=== PATIENT | male | born 1945 | race African-American/Black ===

== ENCOUNTER 2018-04-08 12:26 | Emergency (ER) | payer MEDICARE, SELFPAY ==
[2018-04-08] VITALS (7 sets, daily range): BP systolic 119–143; BP diastolic 70–79; PULSE 53–72; RESP 13–20; TEMP 36.6–36.8; O2SAT 91–96; BMI 27.6
--- NOTE | 2018-04-08 12:58 | EKG12_ITS ---
Test Reason : SOB Blood Pressure : / mmHG Vent. Rate : 054 BPM Atrial Rate : 054 BPM P-R Int : 142 ms QRS Dur : 090 ms QT Int : 474 ms P-R-T Axes : -05 -36 191 degrees QTc Int : 449 ms Sinus bradycardia Left axis deviation Minimal voltage criteria for LVH, may be normal variant Inferior infarct , age undetermined Abnormal ECG Confirmed by JERSON SWARTZ, GERMAN ([id number]), fashion editor LOLLY KAYE ([id number]) on 04/13/2018 4:53:46 PM Referred By: SHERIE Confirmed By:GERMAN ARTHUR MD
[2018-04-08] MEDS: Ipratropium/Albuterol Sulfate 3 ML AMPUL.NEB INHALATION (13:11)
[2018-04-08] MEDS: MethylPREDNISolone 125 MG/2 ML Vial IV (13:37)
--- NOTE | 2018-04-08 13:50 | RAD_ITS ---
STUDY: X-RAY CHEST REASON FOR EXAM: Male, 73 years old. Cough. TECHNIQUE: PA and lateral views of the chest. COMPARISON: None. FINDINGS: EKG electrodes are seen. Pleural-parenchymal changes are seen at the left lung base. This may represent either a small pleural effusion with underlying infiltration or scarring. No prior study is available for comparison. Mild increased markings at the right lung base suggestive of scarring. A left-sided dual-chamber pacemaker is seen. Normal mediastinum and cari. Normal visualized pulmonary arteries. There is atherosclerotic calcification of the aortic arch with tortuosity. There are diffuse degenerative changes of the visualized thoracic spine. Normal visualized ribs, clavicles, and shoulders. A stent is seen in the abdominal aorta. RAD/Chest PA and Lateral IMPRESSION: Pleural parenchymal changes at the left lung base as described. This may represent a small pleural effusion with underlying infiltration. No prior studies available for comparison. This may also represent chronic changes. Clinical correlation is recommended. Electronically Signed: Shawn Roman MD at 14:18 EST Tel [phone], Service support ,
[2018-04-08 14:04] LABS: BUN 32 mg/dL (7-18); Creatinine, Serum 2.42 mg/dL (0.70-1.30); Estimated Creatinine Clearance 23.44 ml/min; Glucose 119 mg/dL (74-106)
[2018-04-08 14:05] LABS: Absolute Lymphocyte Count 1.29 X10^3/ul (0.83-4.51); Absolute Neutrophil Count 7.1 X10^3/uL (2.0-7.7); Anion Gap 7 (5-15); BUN/Creat Ratio 13.2 RATIO (10-20); Basophil# 0.04 X10^3/uL; Basophil% 0.4 % (0-1); Calcium,Total 8.7 mg/dL (8.5-10.1); Chloride 110 mmol/L (98-107); EST Glomerular Filtration Rate 28 mL/min (>60); Eosinophil# 1.37 X10^3/uL; Eosinophils% 12.7 % (0-5); Est Glom Filt Rate - Afr Amer 34 mL/min (>60); Hematocrit 38.6 % (40-54); Hemoglobin 12.2 g/dl (13.0-16.5); Lymphocyte # 1.29 X10^3/ul (4.0); Lymphocyte % 11.9 % (19-41); Mean Corp Hgb Conc 31.6 g/gl (32-36); Mean Corpuscular Hgb 28.6 pg (27.0-32.0); Mean Corpuscular Volume 90.6 fL (80-94); Mean Platelet Vol. 9.8 fl (6.2-12.0); Monocyte# 0.97 X10^3/uL; Neutrophil # 7.12 X10^3/uL (2.7-7.7); Neutrophil % 65.6 % (47-70); POSITIVE COUNT NO; POSITIVE DIFFERENTIAL NO; POSITIVE MORPHOLOGY NO; Platelet Count 225 K/mm3 (150-450); RBC Distribution Width CV 17.6 % (11.6-14.6); RBC Distribution Width SD 57.2 fl (35.1-43.9); Red Blood Count 4.26 M/mm3 (4.6-6.2); Sodium Level 145 mmol/L (136-145); White Blood Count 10.8 K/mm3 (4.4-11.0)
[2018-04-08 14:33] LABS: BNP,B-Type NATRIURETIC PEPTIDE 372.2 pg/mL (0-100)
--- NOTE | 2018-04-08 14:56 | ED.DCSUM_ITS ---
- ER Visit Summary Date of Service: 04/08/18 Chief Complaint: Shortness of breath History of Present Illness: The patient is a [address] Rodriguez and Dr. Perrin. He is a poor informant. He reports his shortness of breath began March 30. He states that he was seen at [facility] and was admitted and discharged April 02. States that that time he was thought to have CHF and they had him on Lasix in the hospital. They did not discharge him on Lasix. Patient reports that he has a cough began March 30 as well. Is productive clear sputum without blood. He denies any fever or chills. No chest pain. Reports his shortness of breath is moderate at worst and mild currently. Is worsened by coughing or laying flat as this worsens his cough as well. Is relieved by sitting up. Physical Examination: Vitals: Stable. Afebrile. General: Well-nourished and well-developed. Head: Normocephalic atraumatic. Neck: Supple, no lymphadenopathy. No JVD. Nontender. Cardiovascular: Regular rate and rhythm. No murmurs. Respiratory: No respiratory distress. Mild wheezing bilaterally with good air movement. No crackles. Abdominal: Soft, nontender, nondistended, normal bowel sounds. No guarding, rebound, or peritoneal signs. Back: Nontender. Extremities: Nontender, no edema. Skin: Normal color, no rash. Neurologic: Alert and oriented ?3. Cranial nerves II through XII are intact. Normal strength and sensation. Psych: Normal affect. Test Results: EKG is sinus bradycardia at 54 with inferior Q waves. There is no old EKG for comparison. Troponin 0 0.015. PT INVENTORY CONTROL ASSISTANT is minimally elevated at 372.2. Chem-7 more for chloride 110, BUN of 32, creatinine 2.42, glucose of 119. There is no old creatinine for comparison. CBC is more for an H&H of 12.2 and 38.6, lymphocytes 12, and eosinophils of 13. Clinical Impression(s) from Imaging Studies Chest X-Ray 04/08/18 13:50 IMPRESSION: Pleural parenchymal changes at the left lung base as described. This may represent a small pleural effusion with underlying infiltration. No prior studies available for comparison. This may also represent chronic changes. Clinical correlation is recommended. Electronically Signed: Shawn Roman MD at 14:18 EST Tel [phone], Service support , Emergency Department Course and Treatment: Patient was given albuterol and Atrovent aerosol. On repeat exam his wheezing is completely resolved and he is feeling much more comfortable. He was given Solu-Medrol and doxycycline p.o. Treatment Plan: Clinically the patient does not have pneumonia. There is no old chest x-ray for comparison. I suspect that this is likely scarring. He will be discharged on a 5-day burst of prednisone and doxycycline. Instructed continue his albuterol MDI. His primary care physician in 5-7 days for another exam. Return to the emergency department for any worsening symptoms. Disposition: To home in improved and stable condition. Impression: 1. COPD exacerbation. 2. Chronic renal insufficiency. This note was generated with [employer] dictation software. It may contain incorrect words, spelling, and punctuation that were not noted in review of the chart prior to signing ED Disposition - Plan for ED Patient: Chief Complaint: Shortness of Breath Instructions: ED COPD Flare Prescriptions: Prednisone [Deltasone] 40 mg PO DAILY #10 tablet Doxycycline 100 mg PO BID #20 capsule Referrals: Jamia Comer MD [Primary Care Provider] - 5-7 Days
[2018-04-08] MEDS: Doxycycline 100 MG CAPSULE PO (15:06)
[2018-04-08] MEDS: predniSONE 20 MG Tablet 60 MG PO (15:06)
== END 2018-04-08 15:22 | disposition home or self-care (01) ==
LOC: ED 13:31
PROVIDERS: Emergency Provider Emergency Medicine; Family Provider Internal Medicine; PCP Internal Medicine
DX: J44.1 Chronic obstructive pulmonary disease with (acute) exacerbation (principal); N18.9 Chronic kidney disease, unspecified; Z87.891 Personal history of nicotine dependence
CPT/HCPCS: 71046; 80048; 83880; 84484; 85025; 93005; 94640; 96374; 99285; A4216

== ENCOUNTER → 2018-05-06 12:01 | Outpatient (CLI) | payer MEDICARE, SELFPAY ==
[2018-04-08 12:27] VITALS: BMI 27.6
[2018-05-06 13:56] LABS: Protein, Urine (Random) 46.5 mg/dL (<11.9); Protein:Creat Ratio 497 mg/g CRE (0-200)
== END ==
PROVIDERS: Family Provider Internal Medicine; Visit Provider Internal Medicine Nephrology
DX: N18.4 Chronic kidney disease, stage 4 (severe) (principal)
CPT/HCPCS: 82570; 84156

== ENCOUNTER → 2018-05-11 10:08 | Outpatient (CLI) | payer MEDICARE, SELFPAY ==
[2018-04-08 12:27] VITALS: BMI 27.6
--- NOTE | 2018-05-11 10:15 | US_ITS ---
STUDY: RENAL ULTRASOUND - COMPLETE REASON FOR EXAM: Male, 73 years old. Stage 4 chronic kidney disease. TECHNIQUE: Ultrasound evaluation of the kidneys was performed with real-time and static baltazar-scale imaging. COMPARISON: None. FINDINGS: RIGHT KIDNEY: Kidney is atrophic. The right kidney measures 8.7 cm. There is a normal cortex of the right kidney. The renal cortex measures 1.1 cm. Simple cyst inferior pole measuring 1.1 x 1.0 x 0.8 cm. There are no right renal calculi. There is no right hydronephrosis. DISTAL RIGHT URETER: There is non-visualization of the distal right ureter. There is no demonstrated right ureterovesical junction calculus. There is a visualized right ureteral jet. LEFT KIDNEY: Kidney is atrophic. Left kidney demonstrates increased echogenicity. The left kidney measures 8.5 cm. Cortical thinning. The renal cortex measures 0.8 cm. 2 renal cysts, midpole complex cyst measuring 1.6 x 1.5 x 1.6 cm and a mid pole simple cyst measuring 0.9 x 0.8 x 0.8 cm.. There are no left renal calculi. There is no left hydronephrosis. DISTAL LEFT URETER: There is non-visualization of the distal left ureter. There is no demonstrated left ureterovesical junction calculus. There is no demonstrated left ureteral jet. . BLADDER: The distended urinary bladder has a volume of 115 ml. There is a normal wall thickness of the distended urinary bladder. Bladder trabeculation noted on the [id number] armor crewman worksheet. There is no demonstrated mass within the urinary bladder. There are no demonstrated bladder calculi. US/Kidney and Bladder IMPRESSION: No hydronephrosis. Atrophic kidneys compatible with chronic renal disease. Increased echogenicity of the left kidney compatible with chronic renal disease. Bilateral renal cysts with a complex cyst mid pole left kidney. Workup of this complex cyst is not suggested unless clinically warranted. Bladder trabeculation which may be related to bladder outlet obstruction among other etiologies. Electronically Signed: Koffi Good MD at 7:38 EST , Service support ,
== END ==
LOC: US 10:09
PROVIDERS: Family Provider Internal Medicine; PCP Internal Medicine; Referring Provider Internal Medicine Nephrology; Visit Provider Internal Medicine Nephrology
DX: N18.4 Chronic kidney disease, stage 4 (severe) (principal)
CPT/HCPCS: 76770

== ENCOUNTER → 2018-07-08 14:22 | Outpatient (CLI) | payer MEDICARE, SELFPAY ==
[2018-04-08 12:27] VITALS: BMI 27.6
[2018-07-08 16:42] LABS: Hemoglobin 11.4 g/dl (13.0-16.5); Mean Corp Hgb Conc 30.8 g/gl (32-36); Mean Corpuscular Hgb 27.4 pg (27.0-32.0); Mean Corpuscular Volume 88.9 fL (80-94); Platelet Count 220 K/mm3 (150-450); RBC Distribution Width CV 17.5 % (11.6-14.6); RBC Distribution Width SD 55.8 fl (35.1-43.9); Red Blood Count 4.16 M/mm3 (4.6-6.2); White Blood Count 7.7 K/mm3 (4.4-11.0)
[2018-07-08 16:44] LABS: Scan Indicated on CBC? Y/N NO
[2018-07-08 17:32] LABS: PTHIN 147.8 pg/mL (18.4-80.1)
[2018-07-08 17:51] LABS: Albumin, Serum 4.2 g/dL (3.2-5.0); BUN 31 mg/dL (7-18); BUN/Creat Ratio 10.9 RATIO (10-20); Calcium,Total 8.9 mg/dL (8.5-10.1); Chloride 107 mmol/L (98-107); Creatinine, Serum 2.85 mg/dL (0.70-1.30); EST Glomerular Filtration Rate 23 mL/min (>60); Est Glom Filt Rate - Afr Amer 28 mL/min (>60); Ferritin 283 ng/mL (26-388); Glucose 113 mg/dL (74-106); Iron 57 ug/dL (65-175); Iron Binding Capacity,Total 223 ug/dL (250-450); Phosphorus 3.8 mg/dL (2.5-4.9); Potassium 4.6 mmol/L (3.5-5.1); Sodium Level 139 mmol/L (136-145)
== END ==
PROVIDERS: Visit Provider Internal Medicine Nephrology
DX: N18.4 Chronic kidney disease, stage 4 (severe) (principal); D50.9 Iron deficiency anemia, unspecified
CPT/HCPCS: 36415; 80069; 82728; 83540; 83550; 83970; 85027

== ENCOUNTER → 2018-10-12 | Outpatient (CLI) | payer MEDICARE, SELFPAY ==
[2018-04-08 12:27] VITALS: BMI 27.6
[2018-10-12 15:17] LABS: Creat.Clear Total Volume 1800 mL
[2018-10-12 17:13] LABS: Hematocrit 38.8 % (40-54); Hemoglobin 11.9 g/dL (13.0-16.5); Mean Corp Hgb Conc 30.7 g/dL (32-36); Mean Corpuscular Hgb 27.1 pg (27.0-32.0); Mean Corpuscular Volume 88.4 fL (80-94); Mean Platelet Vol. 10.3 fl (6.2-12.0); Platelet Count 189 K/mm3 (150-450); RBC Distribution Width CV 16.7 % (11.6-14.6); RBC Distribution Width SD 53.9 fl (35.1-43.9); Red Blood Count 4.39 M/mm3 (4.6-6.2); White Blood Count 7.3 K/mm3 (4.4-11.0)
[2018-10-12 17:20] LABS: Albumin, Serum 3.8 g/dL (3.2-5.0); BUN 36 mg/dL (7-18); BUN/Creat Ratio 12.8 RATIO (10-20); Calcium,Total 8.9 mg/dL (8.5-10.1); Chloride 108 mmol/L (98-107); Creatinine, Serum 2.82 mg/dL (0.70-1.30); EST Glomerular Filtration Rate 24 mL/min (>60); Est Glom Filt Rate - Afr Amer 29 mL/min (>60); Glucose 90 mg/dL (74-106); Phosphorus 3.4 mg/dL (2.5-4.9); Potassium 4.1 mmol/L (3.5-5.1); Sodium Level 142 mmol/L (136-145)
[2018-10-12 17:51] LABS: Creatinine Clearance 47 ml/min (100-200); Creatinine Serum Creat 2.8 mg/dL (0.8-1.3); EST Glomerular Filtration Rate 24 mL/min (>60); Est Glom Filt Rate - Afr Amer 29 mL/min (>60)
[2018-10-15 16:08] LABS: Albumin, Ur 63.8 % (.); Alpha-1-Globulin, Ur 5.3 % (.); Beta Globulin, Ur 13.4 % (.); Gamma Globulin, Ur 10.9 % (.); M-Spike, Ur % Not Observed % (Not Observed); Protein, 24Ur 997 mg/24 hr (30-150); Total Protein, Ur 55.4 mg/dL (Not Estab.)
== END | disposition home or self-care (01) ==
LOC: LAB.FUTURE 14:01
PROVIDERS: Family Provider Internal Medicine; PCP Internal Medicine; Visit Provider Internal Medicine Nephrology
DX: N18.4 Chronic kidney disease, stage 4 (severe) (principal); D50.9 Iron deficiency anemia, unspecified
CPT/HCPCS: 36415; 80069; 82575; 84166; 85027

== ENCOUNTER → 2018-10-19 | Outpatient (CLI) | payer MEDICARE, MEDICAID, SELFPAY ==
[2018-04-08 12:27] VITALS: BMI 27.6
[2018-10-13 10:43] VITALS: BMI 27.6
--- NOTE | 2018-10-19 13:13 | VDUE_ITS ---
Reason For Study: CKD stage 4 Right Arm Left Arm Right cephalic vein is compressible. Left cephalic vein is compressible. Right Cephalic Vein at the shoulder Left Cephalic Vein at the shoulder measures .16 x .17 cm. measures .19 x .17 cm. Right Cephalic Vein mid bicep measures .17 Left Cephalic Vein at mid bicep measures .19 x .18 cm. x .21 cm. Right Cephalic Vein above antecub Left Cephalic Vein above antecub measures .21 measures .18 x .19 cm. x .23 cm. Right Cephalic Vein below antecub Left Cephalic Vein below antecub measures .27 measures .23 x .26 cm. x .27 cm. Right Cephalic Vein in the forearm Left Cephalic Vein in the forearm measures .19 x .20 cm. measures .33 x .4 cm. Right Cephalic Vein at the wrist measures .2 Left Cephalic Vein at the wrist measures .13 x .23 cm. x .16 cm. Right basilic vein is compressible. Left basilic vein is compressible. Right Basilic Vein mid bicep measures .41 Basilic vein at bicep measures .35 x .35 cm. x .41 cm. Basilic vein above antecub measures .43 x .48 Right Basilic Vein above antecub measures .32 cm. x .34 cm. Basilic vein below antecub measures .3 x .35 Right Basilic Vein below antecub measures .23 cm. x.23 cm. Basilic vein in the forearm measures .27 Right Basilic Vein in the forearm x .28 cm. measures .29 x .32 cm. Basilic vein at the wrist measures .22 x .25 Right Basilic Vein at the wrist measures .12 cm. x .15 cm. Brachial Artery .53 x .59 cm. Brachial Artery .61 x .61 cm. Brachial Artery 67.3 cm/s. Brachial Artery 62.1 cm/s. Radial Artery ..35 x .34cm. Radial Artery .34 x .36 cm. Radial Artery 58.1 cm/s. Radial Artery 67.3 cm/s. Interpretation Summary Patent and compressible bilateral cephalic and basilic veins with borderline diameter cephalic veins. Normal diameter and flow bilateral radial and brachial arteries Ordering Physician: Char Trevino Performed By: Marty Melchor RVT ?
== END | disposition home or self-care (01) ==
LOC: CVS 13:11
PROVIDERS: Family Provider Internal Medicine; PCP Internal Medicine; Referring Provider Internal Medicine Nephrology; Visit Provider Internal Medicine Nephrology
DX: Z01.818 Encounter for other preprocedural examination (principal); N18.4 Chronic kidney disease, stage 4 (severe)
CPT/HCPCS: 93970; 93971; G0365

== ENCOUNTER 2018-11-19 07:15 | Day surgery (SDC) | payer MEDICARE, MEDICAID, SELFPAY ==
--- NOTE | 2018-10-22 02:31 | HP_ITS ---
Intake Vital Signs 10/22/18 Body Mass Index (BMI) 27.6 10/22/18 Height 5 ft 5 in 10/22/18 Weight: 163 lb 10/22/18 Body Mass Index (BMI) 27.1 10/22/18 Blood Pressure 155/72 H 10/22/18 Blood Pressure Location Rt brachial 10/22/18 Respiratory Rate 14 10/22/18 Pulse Rate 56 L 10/22/18 Pulse Source Monitor 10/22/18 Temperature 97.8 F 10/22/18 Temperature Source Oral 10/22/18 Pulse Ox 92 10/22/18 Oxygen Delivery Method room air Intake Visit Reasons: Fistula Placement Consult 10/[address] Required: No Is patient in pain?: No Allergies aspirin [ASA] Allergy (Verified 10/22/18 14:17) Other Medications amlodipine 10 mg tablet 10 mg PO DAILY 10/22/18 [History Confirmed 10/22/18] atorvastatin 40 mg tablet 40 mg PO DAILY 10/22/18 [History Confirmed 10/22/18] carvedilol 25 mg tablet 25 mg PO BID 10/22/18 [History Confirmed 10/22/18] cholecalciferol (vitamin D3) 1,000 unit capsule 1,000 unit PO DAILY 10/22/18 [History] clopidogrel 75 mg tablet 75 mg PO DAILY 10/22/18 [History Confirmed 10/22/18] epoetin missy SUBCUT 10/22/18 [History Confirmed 10/22/18] ferrous sulfate 325 mg (65 mg iron) tablet 325 mg PO DAILY 10/22/18 [History Confirmed 10/22/18] gabapentin 300 mg capsule 300 mg PO BID 10/22/18 [History Confirmed 10/22/18] hydralazine 100 mg tablet 100 mg PO TID tab 10/22/18 [History Confirmed 10/22/18] isosorbide mononitrate ER 60 mg tablet,extended release 24 hr 60 mg PO DAILY 10/22/18 [History Confirmed 10/22/18] levothyroxine 75 mcg capsule 75 mcg PO DAILY 10/22/18 [History] sertraline 25 mg tablet 25 mg PO DAILY 10/22/18 [History Confirmed 10/22/18] sodium bicarbonate 650 mg tablet 650 mg PO BID tab 10/22/18 [History Confirmed 10/22/18] [facility] Medical History (Updated 10/22/18 @ 14:31 by Rod Pappas MD) Chronic renal failure, stage 4 (severe) (Chronic) Anemia (Acute) COPD (chronic obstructive pulmonary disease) (Chronic) Shortness of breath (Acute) Acid reflux (Acute) Hypertension (Chronic) Afib (Acute) Heart disease (Acute) Gout (Acute) Arthritis (Acute) Thyroid disease (Acute) Fatigue (Acute) Surgical History (Updated 10/22/18 @ 14:15 by Chata Valdez) hx of APLL (Acute) Hx of CABG (Acute) Hx of cardiac pacemaker (Acute) History of broken leg (Acute) History of open heart surgery (Acute) Family History Father Diabetes Kidney disease Brother Colon cancer Cancer Sister Breast cancer Social History (Updated 10/22/18 @ 14:33 by Rod Pappas MD) Smoking Status: Former smoker alcohol intake: former substance use type: does not use caffeine: Yes what type of physical activity do you participate in: none frequency: does not exercise HPI HPI HPI: ROBERT FRASER, is a 73 M who presents to the office today for HPI HPI Surgical H&P: Yes HPI: ROBERT FRASER, is a 73 M who presents to the office today for surgical consultation regarding arteriovenous hemodialysis fistula creation. The patient is not currently on hemodialysis. Renal insufficiency. He is referred by Dr. Char Trevino and a written compromise surgical consult recommendations will be returned to her. On October 19, 2018 at the [facility] he had bilateral upper extremity vein mapping. Bilateral cephalic veins were quite borderline. It is of additional note that the patient is right arm dominant however he has a left subclavian pacemaker in place. As of October 12 BUN is 36 creatinine 2.8. Estimated GFR was 29. His white blood cell count was 7.3 with a hemoglobin 11.9 hematocrit of 38.8 and a platelet count of 189,000. He is on clopidogrel therapy. He has had coronary bypass surgery. His congestive heart failure. He states that he is not currently using tobacco. ROS General General: Yes fatigue; no weight change, appetite, colon cancer, breast cancer or weakness HEENT HEENT: Yes eye surgery; no difficulty swallowing, eye injury, swollen glands or hoarseness Endo Endocrine: Yes thyroid disease; no diabetes mellitus, thyroid cancer, Hair loss, heat intolerance or cold intolerance Skin Skin: No rash or changing moles Musc Musculoskeletal: Yes arthritis and gout; no back problems, rheumatoid arthritis or joint pain Cardio Cardiovascular: Yes heart disease, atrial fibrillation and high blood pressure; no murmur, pacemaker, heart attack, heart stent, palpitations, shortness of breat with exertion or chest pain Psych Psychiatric: No depression, anxiety or hearing voices Resp Respiratory: Yes shortness of breath, No sleep apnea, No cough, Yes COPD, No asthma, No emphysema, No wheezing Gastro Gastrointestinal: No abdominal pain, No nausea or vomiting, No diarrhea, No constipation, No blood in stool, Yes acid reflux, No hemorrhoids, No ulcers, No gallbladder problem, No black,tarry stools Shen Hematologic: No blood thinners, No blood disorders, No bleeding, Yes anemia, No blood clots Neuro Neurologic: No system reviewed and no additional complaints, except as docu, No as per HPI, No abnormal walking, No abnormal hearing, No abnormal movements, No abnormal speech, No behavioral changes, No burning sensations, No confusion, No seizure-like activity, No unsteadiness, No dizziness, No localized weakness, No frequent falls, No headache(s), No lack of coordination, No loss of vision, No memory loss, No numbness, No other visual disturbances, No radiating pain, No restless legs, No sensory deficit, No fainting, No tingling, No tremor(s), No weakness, No other Exam Const General: other (Patient is wearing sunglasses) Nutritional Appearance: average body habitus Orientation: alert Chest Other: Increased anterior posterior diameter. Well-healed median sternotomy incision. Left anterior chest pacemaker Resp Auscultation: clear to auscultation bilaterally Other: Poor respiratory excursion Cardio Rate: regular rate Rhythm: regular rhythm Heart Sounds: no murmurs Other: 2/6 systolic ejection murmur GI Palpation: soft, no hepatosplenomegaly Auscultation: normal bowel sounds Skin General: no rashes or lesions noted Neuro General: alert, awake Extrem Other: 3+ right brachial artery. 4+ right radial artery with suggestion of small aneurysmal change. Ultrasound inspection of the right upper arm basilic vein demonstrates diminutive size at the antecubital space but adequate in the upper arm. There is evidence of weight loss in the upper arm with skin laxity Psych Affect: normal affect Assessment & Plan Problems 1. Chronic renal failure, stage 4 (severe) N18.4 Plan I am recommending the patient a brachial to basilic arteriovenous hemodialysis fistula creation. Patient is age 73. He has chronic medical comorbidities. He is on clopidogrel. I recommend that we perform this in a staged approach. I have described to him both stage I and stage II transposition. I anticipate performing stage I under monitored anesthesia care and local anesthetic. We will have him hold his clopidogrel for 3 days preoperatively. He has had an opportunity to ask and have questions answered. We will schedule and proceed at his discretion. His left upper extremity is not available for fistula use because of the left chest pacemaker and left subclavian pacemaker wires. CC: Dr. Char Pappas M.D., F.A.C.S. Coding Level of Care Code 11205 Diagnoses Chronic renal failure, stage 4 (severe) N18.4 10/22/18 1433 <Electronically signed by Rod cat MD> Date _ Rod Pappas MD I have re-examined the patient. There are no clinical changes since date of exam.
[2018-10-22 14:17] VITALS: BMI 27.6
--- NOTE | 2018-11-15 10:29 | EKG12_ITS ---
Test Reason : PRE-OP Blood Pressure : / mmHG Vent. Rate : 059 BPM Atrial Rate : 059 BPM P-R Int : 138 ms QRS Dur : 094 ms QT Int : 482 ms P-R-T Axes : 001 -36 159 degrees QTc Int : 477 ms Sinus bradycardia Left axis deviation Minimal voltage criteria for LVH, may be normal variant Inferior infarct (cited on or before 08-APR-2018), age undetermined T wave abnormality, consider lateral ischemia Abnormal ECG Confirmed by JERSON SWARTZ, GERMAN ([id number]), supervising editor news reel OZIEL POPE ([id number]) on 11/16/2018 1:16:17 PM Referred By: Rod Pappas Confirmed By:GERMAN ARTHUR MD
[2018-11-15 11:15] LABS: Hematocrit 38.9 % (40-54); Mean Corp Hgb Conc 30.8 g/dL (32-36); Mean Corpuscular Hgb 27.6 pg (27.0-32.0); Mean Corpuscular Volume 89.4 fL (80-94); Mean Platelet Vol. 9.7 fl (6.2-12.0); Platelet Count 221 K/mm3 (150-450); RBC Distribution Width CV 17.2 % (11.6-14.6); RBC Distribution Width SD 56.4 fl (35.1-43.9); Red Blood Count 4.35 M/mm3 (4.6-6.2); White Blood Count 8.4 K/mm3 (4.4-11.0)
[2018-11-15 11:44] LABS: Anion Gap 5 (5-15); BUN 28 mg/dL (7-18); BUN/Creat Ratio 10.9 RATIO (10-20); Calcium,Total 9.1 mg/dL (8.5-10.1); Chloride 110 mmol/L (98-107); Creatinine, Serum 2.57 mg/dL (0.70-1.30); EST Glomerular Filtration Rate 26 mL/min (>60); Est Glom Filt Rate - Afr Amer 32 mL/min (>60); Glucose 82 mg/dL (74-106); Potassium 4.4 mmol/L (3.5-5.1); Sodium Level 143 mmol/L (136-145)
[2018-11-19] VITALS (8 sets, daily range): BP systolic 133–147; BP diastolic 69–81; PULSE 54–94; RESP 12–18; TEMP 36.3–36.9; O2SAT 92–96; BMI 27.8
[2018-11-19] MEDS: 0.45% Normal Saline 1,000 ML 30 ML IV (07:51)
--- NOTE | 2018-11-19 09:20 | DCINST_ITS ---
Discharge Diet: Renal Diet Discharge Activity: May Not Drive - for 2-3 days or while taking narcotic pain medications., May Shower, May Take a Tub Bath - in 5 days. Lifting Restrictions: 5 pounds Keep extremity elevated above heart level: - - Keep arm elevated above the heart level for 3 days. Additional Activity Instructions:: Exercise hand vigorously with a stress ball. Call your doctor if your incision/area has: Continuous Slow Oozing, Sudden Increased Bleeding - apply pressure and call your doctor., Increased Pain/ Swelling, Increased Redness, Foul Smelling Discharge Call your doctor if you observe: Fever of 101 or Higher Suture Line Care: Avoid Pulling/Pushing, Avoid Pinching/Bending Cleanse incision/area with: Keep Dressing Clean & Dry Additional Dressing/Incision Instructions:: Change or remove dressing in two days. May protect with a gauze bandaid. Allergies/Adverse Reactions: Allergies aspirin [ASA] Allergy (Verified 11/19/18 07:30) Other Medications to take at Discharge amlodipine 10 mg tablet 10 mg PO DAILY 10/22/18 atorvastatin 40 mg tablet 40 mg PO DAILY 10/22/18 carvedilol 25 mg tablet 25 mg PO BID 10/22/18 cholecalciferol (vitamin D3) 1,000 unit capsule 1,000 unit PO DAILY 10/22/18 clopidogrel 75 mg tablet 75 mg PO DAILY 10/22/18 ferrous sulfate 325 mg (65 mg iron) tablet 325 mg PO DAILY 10/22/18 gabapentin 300 mg capsule 300 mg PO BID 10/22/18 hydralazine 100 mg tablet 100 mg PO TID tab 10/22/18 isosorbide mononitrate ER 60 mg tablet,extended release 24 hr 60 mg PO DAILY 10/22/18 levothyroxine 75 mcg capsule 75 mcg PO DAILY 10/22/18 sertraline 25 mg tablet 25 mg PO DAILY 10/22/18 sodium bicarbonate 650 mg tablet 650 mg PO BID tab 10/22/18 Albuterol Aerosols [Ventolin Aerosols] 2.5 mg INHALATION Q6H PRN PRN 11/12/18 Albuterol Inhaler [Ventolin Hfa] 1 - 2 puff INHALATION Q4H PRN PRN 11/12/18 Hydrocodone Bitart/Apap 5-325 [Callaway 5MG-325MG] 1 tablet PO Q6H PRN PRN 2 Days #6 tablet 11/19/18 The following prescriptions were given: Hydrocodone Bitart/Apap 5-325 [Callaway 5MG-325MG] 1 tablet PO Q6H PRN PRN 2 Days #6 tablet PRN Reason: Pain Transmission Status: Received by JESSICA [id number] [place] [address] Primary Care Physician: Jamia Comer MD [Primary Care Provider] - Test Results: Test results from this visit will be discussed in further detail at your follow- up appointment, if applicable. Please Follow Up With: Rod Pappas MD - [phone] When: Call to make an appointment for suture removal and follow up in 1 week.
[2018-11-19] MEDS: Heparin Injection (Vial) 5,000 UNIT/ML VIAL 5000 UNIT (10:00)
[2018-11-19] MEDS: Bupivacaine Mpf 0.5% 30 ML VIAL (10:00)
--- NOTE | 2018-11-19 10:36 | PCM.OPRPT ---
Problem List (1) Chronic renal failure, stage 4 (severe) Status: Chronic Report of Operation Date of Procedure: 11/19/18 Pre-Operative Diagnosis: Stage IV chronic renal insufficiency Post-Operative Diagnosis: Same Surgery/Procedure Performed:: Stage I right upper extremity basilic vein to brachial artery arteriovenous hemodialysis fistula creation Description of Surgical Findings:: Timeout and informed consent was obtained. 73-year-old gentleman was taken to the operating placement table underwent monitored anesthesia care. Clean procedure no antibiotics required. The right upper extremity sterilely prepped draped. 1% lidocaine mixed 50-50 with 0.5% Marcaine was used as a local anesthetic. Total of 19 cc was used. Local was after ultrasound mapping. Oblique incision was created blue and blunt dissection was used to identify the basilic vein was dissected free distally with side branches secured with hemoclips. Then sharp and blunt dissection was used identify the brachial artery. Circumferential control was obtained. The patient received 7000 units of heparin intravenously. Peripheral vascular clamps were applied. Arteriotomy was created with 11 blade and extended with Ch scissors. The vein was ligated distally with hemoclips and it was slightly spatulated and a end-to-side anastomosis was created with running 7-0 Prolene. A single repair suture of 7-0 Prolene was required. There was excellent flow in the fistula from the onset with a good pulse and thrill. The fistula had a good positional lie. The wound was closed with a running 6 subcutaneous 3-0 Vicryl and then a running subcuticular 4-0 Monocryl. Steri-Strips Telfa and tape dressings applied. Sponge and instrument and needle counts were reported to the surgeon to be correct. Blood loss was minimal. Specimens none. Drains none. Blood loss minimal. He was taken back to the recovery area in satisfactory condition without apparent complication. The hand was viable at the completion. Rod Pappas M.D., F.A.C.S. Type of Anesthesia:: Local MAC Anesthesiologist: Alfonzo Richardson
== END 2018-11-19 13:03 | disposition home or self-care (01) ==
LOC: SDC 07:16 → AC 07:18
PROVIDERS: Family Provider Internal Medicine; PCP Internal Medicine; Referring Provider Surgery; Visit Provider Surgery
PROC: (CPT 36821; principal; 2018-11-19 08:30)
DX: I13.0 Hypertensive heart and chronic kidney disease with heart failure and stage 1 through stage 4 chronic kidney disease, or unspecified chronic kidney disease (principal); N18.4 Chronic kidney disease, stage 4 (severe); I50.9 Heart failure, unspecified; D64.9 Anemia, unspecified; J44.9 Chronic obstructive pulmonary disease, unspecified; K21.9 Gastro-esophageal reflux disease without esophagitis; I48.91 Unspecified atrial fibrillation; M19.90 Unspecified osteoarthritis, unspecified site; M10.9 Gout, unspecified; R01.1 Cardiac murmur, unspecified; E78.00 Pure hypercholesterolemia, unspecified; F41.9 Anxiety disorder, unspecified; F32.9 Major depressive disorder, single episode, unspecified; E06.9 Thyroiditis, unspecified; Z95.1 Presence of aortocoronary bypass graft; Z79.02 Long term (current) use of antithrombotics/antiplatelets; Z79.899 Other long term (current) drug therapy; Z87.891 Personal history of nicotine dependence
CPT/HCPCS: 01844; 36821; 36415; 80048; 85027; 93005

== ENCOUNTER 2018-12-29 06:59 | Inpatient (IN) | payer MEDICARE, MEDICAID, SELFPAY ==
[2018-12-29] VITALS (15 sets, daily range): BP systolic 109–134; BP diastolic 59–87; PULSE 60–76; RESP 12–19; TEMP 36.4–37; O2SAT 92–98; BMI 28.6; BMI 29.5; BMI 28.0
--- NOTE | 2018-12-29 07:26 | EKG12_ITS ---
Test Reason : SOB Blood Pressure : / mmHG Vent. Rate : 061 BPM Atrial Rate : 061 BPM P-R Int : 156 ms QRS Dur : 090 ms QT Int : 452 ms P-R-T Axes : 001 -31 075 degrees QTc Int : 455 ms Normal sinus rhythm Left axis deviation Inferior infarct (cited on or before 08-APR-2018) Abnormal ECG Confirmed by ARPAN SWARTZ, MIGUELINA ([id number]), supervising editor trailer BEHZAD MORELOS ([id number]) on 01/04/2019 10:31:44 AM Referred By: Rob William Confirmed By:AYALA ANTONY MD
--- NOTE | 2018-12-29 07:26 | RAD_ITS ---
STUDY: X-RAY CHEST REASON FOR EXAM: Male, 73 years old. Shortness of breath TECHNIQUE: Single AP portable view of the chest. COMPARISON: 04/08/2018 FINDINGS: Left subclavian dual-lead AICD which is unchanged. Status post coronary artery bypass grafting. Alveolar opacity in the lower left lung consistent with left lower lobe pneumonia or atelectasis. There is no demonstrated pleural abnormality. There is moderate cardiac enlargement. Normal mediastinum and cari. Normal visualized pulmonary arteries. Normal visualized aortic arch and descending thoracic aorta. Normal visualized thoracic spine. Normal visualized ribs, clavicles, and shoulders. There is no demonstrated abnormality of the visualized soft tissue structures of the upper abdomen. RAD/Chest 1 View (Portable) IMPRESSION: Left lower lobe pneumonia or atelectasis. Electronically Signed: Juventino Huynh MD at 8:11 EDT Tel , Service support ,
[2018-12-29] MEDS: Ipratropium/Albuterol Sulfate 3 ML AMPUL.NEB INHALATION (07:38)
[2018-12-29] MEDS: Albuterol 2.5 MG/3 ML VIAL.NEB. INHALATION ×3 (07:38)
[2018-12-29 07:43] LABS: Absolute Lymphocyte Count 0.94 X10^3/uL (0.83-4.51); Absolute Neutrophil Count 6.9 X10^3/uL (2.0-7.7); Basophil# 0.02 X10^3/uL; Basophil% 0.2 % (0-1); Eosinophil# 0.81 X10^3/uL; Eosinophils% 8.8 % (0-5); Hematocrit 31.3 % (40-54); Hemoglobin 9.5 g/dL (13.0-16.5); Lymphocyte # 0.94 X10^3/ul (4.0); Lymphocyte % 10.2 % (19-41); Mean Corp Hgb Conc 30.4 g/dL (32-36); Mean Corpuscular Volume 92.3 fL (80-94); Monocyte# 0.52 X10^3/uL; Monocyte% 5.7 % (0-10); NRBC Flagged by Analyzer 0 % (0-5); Neutrophil # 6.88 X10^3/uL (2.7-7.7); Neutrophil % 74.8 % (47-70); Platelet Count 184 K/mm3 (150-450); RBC Distribution Width CV 17.8 % (11.6-14.6); RBC Distribution Width SD 60.6 fl (35.1-43.9); Red Blood Count 3.39 M/mm3 (4.6-6.2); White Blood Count 9.2 K/mm3 (4.4-11.0)
[2018-12-29] MEDS: MethylPREDNISolone 125 MG/2 ML Vial IV (07:49)
[2018-12-29 07:59] LABS: Anion Gap 4 (5-15); BUN 42 mg/dL (7-18); Calcium,Total 8.7 mg/dL (8.5-10.1); Chloride 113 mmol/L (98-107); Creatinine, Serum 2.99 mg/dL (0.70-1.30); EST Glomerular Filtration Rate 22 mL/min (>60); Est Glom Filt Rate - Afr Amer 27 mL/min (>60); Estimated Creatinine Clearance 19.71 ml/min; Glucose 100 mg/dL (74-106); Potassium 4.5 mmol/L (3.5-5.1); Sodium Level 145 mmol/L (136-145)
[2018-12-29 08:30] LABS: BNP,B-Type NATRIURETIC PEPTIDE 1258.6 pg/mL (0-100)
--- NOTE | 2018-12-29 09:00 | ED.VISSUMM ---
- ER Visit Summary Date of Service: 12/29/18 Chief Complaint: [Shortness of breath] History of Present Illness: The patient is a 73 M [presents to the emergency department shortness of breath that started about a week ago. Patient complains of exertional dyspnea. He denies any chest pain. Denies any cough. He denies any sputum production. Patient was scheduled to have surgery on a fistula today however he was noted to be hypoxic and dyspneic so he was referred to the emergency department. Patient does not wear home O2. Patient does have history of COPD, hypertension, GERD, chronic renal failure, hypothyroidism. Physical Examination: [HEENT-PERRLA, EOMI. Cranial nerves II through XII grossly intact. TMs clear. Mucous membranes moist. No adenopathy. Cardiovascular-regular rate and rhythm without murmur or ectopy Lungs-sounds bilaterally. She with expiratory wheezes bilaterally. Patient is apneic on my exam with respiratory rate of around 24. No conversational dyspnea. Abdomen-normoactive bowel sounds, soft, nontender, no rebound or rigidity, no peritoneal signs. Extremities-intact ?4, normal range of motion, normal pulses, atraumatic. Patient has trace edema both lower extremities.] Test Results: [EKG obtained arrival shows sinus rhythm with ventricular rate of 61 bpm with an old inferior infarct noted. CBC with differential showing a 9.2, hemoglobin 9.5, hematocrit 31, platelets 24. Chemistries unremarkable. BUN was 42 and creatinine 2.99. Troponin is less than 0.15. BNP was elevated 1258. Chest x-ray obtained read by radiology as left lower lobe pneumonia versus atelectasis.] Emergency Department Course and Treatment: [He was given DuoNeb aerosol followed by albuterol aerosols. Patient was given Solu-Medrol and 25 mg IV.] Treatment Plan: [Admit for further treatment of COPD exacerbation and hypoxemia. My suspicion for pneumonia is low clinically as he has had no cough no fever.] Disposition: [Admit] Impression: [COPD exacerbation Hypoxemia Dyspnea] This note was generated with [employer] dictation software. It may contain incorrect words, spelling, and punctuation that were not noted in review of the chart prior to signing ED Disposition - Plan for ED Patient: Referrals: Jamia Comer MD [Primary Care Provider] -
--- NOTE | 2018-12-29 09:20 | NURSING ---
Ventura WITT COPD EXAC, HYPOXIA, DYSPNEA, CHF
--- NOTE | 2018-12-29 11:34 | HP.PCM_ITS ---
Problem List (1) HFrEF (heart failure with reduced ejection fraction) Status: Acute Qualifiers: Heart failure chronicity: acute Qualified Code(s): I50.21 - Acute systolic (congestive) heart failure (2) Acute respiratory insufficiency Status: Acute (3) Chronic renal failure, stage 4 (severe) Status: Chronic (4) hx of APLL Status: Chronic (5) Hx of CABG Status: Chronic (6) Hx of cardiac pacemaker Status: Chronic (7) History of broken leg Status: Resolved (8) History of open heart surgery Status: Chronic (9) Anemia Status: Chronic Qualifiers: Anemia type: unspecified type Qualified Code(s): D64.9 - Anemia, unspecified (10) COPD (chronic obstructive pulmonary disease) Status: Chronic Qualifiers: COPD type: unspecified COPD Qualified Code(s): J44.9 - Chronic obstructive pulmonary disease, unspecified (11) Acid reflux Status: Acute (12) Hypertension Status: Chronic (13) Afib Status: Chronic Qualifiers: Atrial fibrillation type: unspecified Qualified Code(s): I48.91 - Unspecified atrial fibrillation (14) Gout Status: Acute (15) Arthritis Status: Chronic (16) Thyroid disease Status: Chronic (17) CAD (coronary artery disease) Status: Chronic History of Present Illness Date of Admission: 12/29/18 Chief Complaint: shortness of breath The patient is a 73 year old M presents with shortness of breath. States that this shortness of breath has been going on for a year mostly exertional. Denies any chest pain. Was seen by his primary care provider and received antibiotics and prednisone. States that he did not take the prednisone but just felt worse today. Today, patient went had evaluation for his fistula placement and was noted to be hypoxic into the 70-80 range. Patient was directed to the emergency room. In the emergency room is concerning for COPD exacerbation patient did receive bronchodilators as well as methylprednisolone. Patient was put on oxygen and states that he is feeling better at this time. Discussing with the patient is that he has had similar presentations with what sounds like heart failure. Unfortunately, much the patient's records are in [place], [place]. Patient is recently moved to the [facility] about a year ago. [] Past Medical History Past Medical History (Chronic Problems): Chronic Problems (Last Updated 12/29/18 @ 11:41 by Rob William DO) Thyroid disease (Chronic) CAD (coronary artery disease) (Chronic) Chronic renal failure, stage 4 (severe) (Chronic) hx of APLL (Chronic) Hx of CABG (Chronic) Hx of cardiac pacemaker (Chronic) History of open heart surgery (Chronic) Anemia (Chronic) COPD (chronic obstructive pulmonary disease) (Chronic) Hypertension (Chronic) Afib (Chronic) Arthritis (Chronic) Medical History: Medical History (Last Updated 12/29/18 @ 11:41 by Rob William DO) HFrEF (heart failure with reduced ejection fraction) (Acute) I50.20 CAD (coronary artery disease) (Acute) I25.10 Hypothyroid (Acute) E03.9 Chronic renal failure, stage 4 (severe) (Chronic) N18.4 Anemia (Acute) D64.9 COPD (chronic obstructive pulmonary disease) (Chronic) J44.9 Acid reflux (Acute) K21.9 Hypertension (Chronic) I10 Afib (Acute) I48.91 Gout (Acute) M10.9 Arthritis (Acute) M19.90 Allergies aspirin [ASA] Allergy (Verified 12/29/18 05:58) Other Home Medications: Ambulatory Orders Medication Instructions Recorded amlodipine 10 mg tablet 10 mg PO DAILY 10/22/18 atorvastatin 40 mg tablet 40 mg PO DAILY 10/22/18 carvedilol 25 mg tablet 25 mg PO BID 10/22/18 cholecalciferol (vitamin D3) 1,000 1,000 unit PO DAILY 10/22/18 unit capsule clopidogrel 75 mg tablet 75 mg PO DAILY 10/22/18 ferrous sulfate 325 mg (65 mg 325 mg PO DAILY 10/22/18 iron) tablet gabapentin 300 mg capsule 300 mg PO BID 10/22/18 hydralazine 100 mg tablet 100 mg PO TID tab 10/22/18 isosorbide mononitrate ER 60 mg 60 mg PO DAILY 10/22/18 tablet,extended release 24 hr levothyroxine 75 mcg capsule 75 mcg PO DAILY 10/22/18 sertraline 25 mg tablet 25 mg PO DAILY 10/22/18 sodium bicarbonate 650 mg tablet 650 mg PO BID tab 10/22/18 Albuterol Aerosols [Ventolin 2.5 mg INHALATION Q6H PRN PRN 11/12/18 Aerosols] Albuterol Inhaler [Ventolin Hfa] 1 - 2 puff INHALATION Q4H PRN PRN 11/12/18 Surgical History: Surgical History (Last Updated 12/29/18 @ 11:41 by Rob William DO) History of arteriovenostomy for renal dialysis (Acute) Z99.2 hx of APLL (Acute) Hx of CABG (Acute) Z95.1 Hx of cardiac pacemaker (Acute) Z95.0 History of broken leg (Acute) Z87.81 History of open heart surgery (Acute) Z98.890 Psychiatric History: No pertinent psych hx Lives: Spouse/ Significant Other Smoking Status: Former smoker Tobacco Use: Non-smoker Alcohol: None Drugs: None - *Family History Paternal Family History: Family History (Last Reviewed 12/29/18 @ 11:41 by Rob William DO) Father Diabetes Kidney disease Brother Colon cancer Cancer Sister Breast cancer Review of Systems Constitutional: Denies: Anorexia, Chills, Fever Eyes: Denies: Blurred vision, Double vision HEENT: Denies: Head Aches, Sinus Congestion, Sinus Drainage Cardiovascular: Reports: Edema - some in lower extremities. Denies: Chest Pain Respiratory: Reports: Cough, Shortness of Breath Gastrointestinal: Denies: Abdominal Pain, Constipation, Diarrhea Genitourinary: Denies: Dysuria, Frequency, Hematuria Musculoskeletal: Denies: Arm Pain, Back Pain, Foot Pain, Hand Pain Skin: Denies: Rash, Wounds Neurological: Denies: Numbness, Tingling, Focal weakness Psychiatric: Denies: Anxiety, Depression Endocrine: Denies: Change in Body Habitus, Heat/ Cold Intolerance Hematologic/ Lymphatic: Denies: Easy Bruising, Easy Bleeding, Hx of blood clot Comment: A 10 point review of systems were negative except as mentioned in the history of present illness and the other review of systems. VTE Information - Inpt Only VTE Present on Admission: No VTE Mechan Device Prophylaxis: None VTE Pharm Prophylaxis ordered?: Yes Patient Problems: Active and Suspected Problems (Last Updated 12/29/18 @ 11:41 by Rob William DO) HFrEF (heart failure with reduced ejection fraction) (Acute) Acute respiratory insufficiency (Acute) HFrEF (heart failure with reduced ejection fraction) (Acute) Hypothyroid (Acute) - Physical Exam General: Alert, No apparent distress HEENT: Atraumatic, Normocephalic, - - No icterus Oral: Moist Mucosa, No Gingival or Mucosal Lesions/ Ulcerations Neck: No Nodes, Trachea Midline Lungs: Clear to auscultation, No rhonchi, No wheeze, No rales, Diminished Cardiovascular: Regular rate, Regular Rhythm, Normal S1, Normal S2, No murmurs Abdomen: Bowel Sounds Present, Soft, Non Tender, Non-Distended, No Hepato- splenomegaly Extremities: No Calf Tenderness, Edema - Trace Skin: No rashes, No breakdown Musculoskeletal: No Tenderness to Palpation of Joints or Extremities, No Muscle Wasting Neurological: Neuro grossly intact, Sensory exam intact to light touch and pain Psych/Mental Status: Normal Affect, Appropriate Vital Signs Temp Pulse Resp BP Pulse Ox 36.6 C 68 18 129/77 H 93 12/29/18 09:49 12/29/18 10:44 12/29/18 09:49 12/29/18 09:49 12/29/18 09:49 Oxygen Flow Rate (L/min) 3 Oxygen Delivery Method Nasal Cannula Weight: 76.4 kg Body Mass Index (BMI) 28.0 Laboratory Tests Past 24 Hrs 12/29/18 12/29/18 12/29/18 07:36 07:36 07:36 WBC 9.2 RBC 3.39 L Hgb 9.5 L Hct 31.3 L MCV 92.3 MCH 28.0 MCHC 30.4 L RDW Std Deviation 60.6 H RDW Coeff of Erin 17.8 H Plt Count 184 MPV 9.0 Immature Gran % (Auto) 0.300 Neut % (Auto) 74.8 H Lymph % (Auto) 10.2 L Weber % (Auto) 5.7 Eos % (Auto) 8.8 H Baso % (Auto) 0.2 Absolute Neuts (auto) 6.9 Absolute Lymphs (auto) 0.94 Nucleated RBC % 0 Sodium 145 Potassium 4.5 Chloride 113 H Carbon Dioxide 28.0 Anion Gap 4 L BUN 42 H Creatinine 2.99 H Estim Creat Clear Calc 19.71 Est GFR (MDRD) Af Amer 27 L Est GFR (MDRD) Non-Af 22 L BUN/Creatinine Ratio 14.0 Glucose 100 Calcium 8.7 Troponin I < 0.015 B-Natriuretic Peptide 1258.6 H Chest x-ray reviewed and showed some pony vascular congestion and cardiomegaly. EKG reviewed and showed normal sinus rhythm with no acute changes. Assessment/Plan All Active Problems (Last Updated 12/29/18 @ 11:41 by Rob William DO) HFrEF (heart failure with reduced ejection fraction) (Acute) Acute respiratory insufficiency (Acute) HFrEF (heart failure with reduced ejection fraction) (Acute) Hypothyroid (Acute) History of arteriovenostomy for renal dialysis (Acute) History of broken leg (Resolved) Acid reflux (Acute) Gout (Acute) 1. Acute heart failure with reduced ejection fraction, presumed * I do not have a definitive EF but the fact the patient has an AICD, with what he describes an AICD, that I presume patient has a reduced ejection fraction and thus have diagnosed him as such for now unless an echocardiogram confers otherwise. * Chest x-ray more consistent with CHF rather than pneumonia * Diurese IV furosemide but monitor creatinine * Request records from Dr. Rivera at [facility], whom he saw within the past few weeks, as well as records from [facility] in [place], [place]. * Continue with carvedilol, hydralazine, isosorbide. * Patient not a candidate for CHRISTEL inhibitors nor angiotensin receptor blockers given his chronic kidney disease status * Check an echocardiogram 2. Acute hypoxic respiratory insufficiency * Secondary to above but comp gated by the patient's underlying COPD * I do not feel, at this time, the patient is an exacerbation of COPD and so we will hold off on any additional steroids * Bronchodilators * Check an amatory pulse ox, patient still requiring oxygen prior to discharge. 3. Chronic kidney disease stage IV * Monitor closely while the patient is on Lasix * Patient does have a fistula in his right upper extremity but not anywhere near ready for use * Follow-up with Dr. Pappas for further evaluation as outpatient 4. VTE prophylaxis: Moderate risk. Subcu heparin 5. Advanced care planning: Discussed with the patient. Patient wishes to be full CODE STATUS at this time. Code Visit Inpatient E&M: 92465 Init Hosp L3
--- NOTE | 2018-12-29 12:30 | NURSING ---
Nurse from PCP office called to notify hospital staff that patient had recent lab work which revealed a DDimer of [id number].
--- NOTE | 2018-12-29 12:47 | ECHOD_ITS ---
Reason For Study: CHF Procedure This was a 2D Doppler, Color Flow transthoracic echocardiogram. Exam performed portable in patient room. Left Ventricle Moderate concentric left ventricular hypertrophy. The estimated ejection fraction is 65 %. Septal motion consistent with IVCD. Stage 2 diastolic dysfunction. No regional wall motion abnormalities noted. Right Ventricle Severely dilated right ventricle. ICD or pacer leads identified within the right ventricle. Normal systolic function. Atria The left atrium is mildly enlarged. Normal right atrium. Normal atrial septum. Mitral Valve The mitral valve is structurally normal. No prolapse or stenosis seen. Mild (1+) mitral valve insufficiency. Tricuspid Valve Normal tricuspid valve. Mild to moderate (1-2+) tricuspid valve insufficiency. Right ventricular systolic pressure estimated to be 40 mmHg. Mild pulmonary hypertension. Aortic Valve Peak aortic valve gradient 63 mmHg. Mean aortic valve gradient 32 mmHg. Calculated aortic valve area (continuity equation) is 0.88 cm2. Moderate aortic stenosis. Stable appearing bioprosthetic aortic valve apparatus. Pulmonic Valve Normal pulmonic valve. Great Vessels Normal aortic root. Mild atherosclerosis of the aortic arch. The inferior vena cava is dilated. No collapse of the inferior vena cava. Pericardium/Pleural No pericardial effusion. MMode/2D Measurements & Calculations LVIDd: 5.4 cm IVSd: 1.4 cm LVOT diam: 2.0 cm LVIDs: 3.5 cm LVPWd: 1.4 cm LVOT area: 3.2 cm2 RVDd: 4.8 cm FS: 33.8 % Ao root diam: 3.5 cm LAV(MOD-bp): 68.9 ml LVAd ap4: 31.8 cm2 LAV(MOD-bp) Indexed: 37.5 ml/m2 EDV(MOD-sp4): 99.9 ml LAV(MOD-sp2): 69.0 ml EDV(sp4-el): 103.6 ml LAV(MOD-sp4): 59.0 ml LVAs ap4: 16.9 cm2 ESV(MOD-sp4): 35.2 ml ESV(sp4-el): 33.4 ml EF(MOD-sp4): 64.8 % EF(sp4-el): 67.8 % SV(MOD-sp4): 64.7 ml SV(sp4-el): 70.2 ml LA A4 area: 21.0 cm2 LA dimension(2D): 5.1 cm RA A4 area: 17.0 cm2 Doppler Measurements & Calculations MV E max charles: 126.1 cm/sec Lat Peak E' Charles: 3.7 cm/sec Med Peak E' Charles: 4.6 cm/sec MV A max charles: 66.4 cm/sec E/E' lat: 34.3 E/E' med: 27.5 MV E/A: 1.9 Ao V2 max: 395.1 cm/sec LV V1 max: 107.6 cm/sec SV(LVOT): 90.7 ml Ao max P.5 mmHg LV V1 max P.6 mmHg Ao V2 mean: 263.6 cm/sec LV V1 mean P.7 mmHg Ao mean P.8 mmHg LV V1 mean: 78.0 cm/sec Ao V2 VTI: 98.4 cm LV V1 VTI: 28.2 cm NISHANT(I,D): 0.92 cm2 NISHANT(V,D): 0.88 cm2 PA V2 max: 127.1 cm/sec TR max charles: 366.7 cm/sec TR max P.8 mmHg Interpretation Summary Moderate concentric left ventricular hypertrophy. The estimated ejection fraction is 65 %. Stage 2 diastolic dysfunction. Severely dilated right ventricle. The left atrium is mildly enlarged. Mild (1+) mitral valve insufficiency. Mild to moderate (1-2+) tricuspid valve insufficiency. Right ventricular systolic pressure estimated to be 40 mmHg. Mild pulmonary hypertension. Stable appearing bioprosthetic aortic valve apparatus. Peak aortic valve gradient 63 mmHg. Mean aortic valve gradient 32 mmHg. Calculated aortic valve area (continuity equation) is 0.88 cm2. 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 Aortic stenosis may be overestimated if pt has anemia. The inferior vena cava is dilated There is no comparison study available. Ordering Physician: Rob William Referring Physician: Jamia Comer Performed By: Shruthi Raygoza, PRETTY, RVT
[2018-12-29] MEDS: Acetaminophen 325 MG Tablet 650 MG PO (14:22)
[2018-12-29] MEDS: hydrALAZINE 50 MG Tablet 100 MG PO ×2 (14:29→22:18)
--- NOTE | 2018-12-29 16:13 | CHAPLAIN ---
attempt to visit on two occasions; pt is sleeping both times; left a calling card
[2018-12-29] MEDS: Gabapentin 300 MG Capsule PO (18:30)
[2018-12-29] MEDS: Furosemide 40 MG/4 ML Vial IV (18:30)
[2018-12-29] MEDS: Carvedilol 25 MG Tablet PO (22:18)
[2018-12-29] MEDS: Sodium Bicarbonate 650 MG Tablet PO (22:18)
[2018-12-29] MEDS: Heparin Injection (Vial) 5,000 UNIT/ML VIAL 5000 UNIT SC (22:19)
[2018-12-30] VITALS (17 sets, daily range): BP systolic 114–130; BP diastolic 50–77; PULSE 61–92; RESP 16–18; TEMP 36.6–36.9; O2SAT 94–99
--- NOTE | 2018-12-30 00:10 | NURSING ---
this RN gave over care and report to Florence STEVEN
[2018-12-30] MEDS: Levothyroxine 75 MCG Tablet PO (06:14)
[2018-12-30] MEDS: hydrALAZINE 50 MG Tablet 100 MG PO ×3 (06:14→21:29)
[2018-12-30 07:01] LABS: Anion Gap 5 (5-15); BUN 53 mg/dL (7-18); BUN/Creat Ratio 15.3 RATIO (10-20); Calcium,Total 8.4 mg/dL (8.5-10.1); Chloride 110 mmol/L (98-107); Cholesterol 132 mg/dL (200); Creatinine, Serum 3.47 mg/dL (0.70-1.30); EST Glomerular Filtration Rate 19 mL/min (>60); Est Glom Filt Rate - Afr Amer 23 mL/min (>60); Estimated Creatinine Clearance 16.98 ml/min; Glucose 140 mg/dL (74-106); High Density Lipoprotein 49 mg/dL; Potassium 5.1 mmol/L (3.5-5.1); Sodium Level 142 mmol/L (136-145); Thyroid Stim Hormone (TSH) 0.77 uIU/mL (0.358-3.74); Triglycerides 78 mg/dL; Very Low Density Lipoprotein 16 mg/dL (5-40)
[2018-12-30] MEDS: Sodium Bicarbonate 650 MG Tablet PO ×2 (10:16→21:29)
[2018-12-30] MEDS: Ferrous Sulfate 325 MG Tablet PO (10:16)
[2018-12-30] MEDS: Gabapentin 300 MG Capsule PO ×2 (10:16→16:47)
[2018-12-30] MEDS: Sertraline 50 MG Tablet 25 MG PO (10:16)
[2018-12-30] MEDS: Clopidogrel Bisulfate 75 MG Tablet PO (10:16)
[2018-12-30] MEDS: Carvedilol 25 MG Tablet PO ×2 (10:16→21:29)
[2018-12-30] MEDS: Heparin Injection (Vial) 5,000 UNIT/ML VIAL 5000 UNIT SC ×2 (10:16→21:29)
[2018-12-30] MEDS: Isosorbide Mononitrate 60 MG Tablet PO (10:17)
[2018-12-30] MEDS: amLODIPine 10 MG Tablet PO (10:17)
[2018-12-30] MEDS: Acetaminophen 325 MG Tablet 650 MG PO (13:43)
--- NOTE | 2018-12-30 14:28 | CHAPLAIN ---
Type of Pastoral Visit _x__ Initial Visit ___ Follow-up Visit ___ On-call Visit ___ General Patient Visit ___ Spiritual Assessment ___ Family Conference ___ Bereavement ___ Rapid Response ___ Code Blue ___ Other (describe below) Pastoral Care Referral From _x__ Patient ___ Family ___ Nurse ___ Physician ___ Nanotechnologist ___ Pipeline Dispatcher ___ Other (describe below) Sacrament/Intervention _x__ Active listening ___ Anointing ___ Judaism ___ Bereavement ___ Communion _x__ Herlinda exploration ___ _x__ Life review _x__ Prayer ___ Reconciliation ___ Sacrament of Sick _x__ Supportive presence ___ Wedding ___ Other (describe below) Pastoral Comments
--- NOTE | 2018-12-30 15:16 | PCM.PN.HOSP ---
Patient Problems: Active and Suspected Problems (Last Updated 12/29/18 @ 11:41 by Rob William DO) HFrEF (heart failure with reduced ejection fraction) (Acute) Acute respiratory insufficiency (Acute) Subjective: Feeling and breathing better. Vitals/I&O's: Vital Signs Temp Pulse Resp BP Pulse Ox 36.8 C 80 16 125/63 H 95 12/30/18 10:00 12/30/18 13:43 12/30/18 10:00 12/30/18 10:00 12/30/18 11:35 Oxygen Flow Rate (L/min) 2 Oxygen Delivery Method Room Air Weight: 78.1 kg Body Mass Index (BMI) 28.0 Intake and Output for Last 24 Hours 12/28/18 12/29/18 12/30/18 23:59 23:59 23:59 Intake Total 550 / 550 900 / 900 Output Total 400 / 400 975 / 975 Balance 150 / 150 -75 / -75 General: Alert, No apparent distress HEENT: Atraumatic, Normocephalic Oral: Moist Mucosa, No Gingival or Mucosal Lesions/ Ulcerations Neck: No Nodes, Thyroid Normal Size and Texture Lungs: Clear to auscultation, Normal air movement, No rhonchi, No wheeze Cardiovascular: Regular rate, Regular Rhythm, Normal S1, Normal S2 Abdomen: Bowel Sounds Present, Soft, Non Tender, Non-Distended, No Hepato-splenomegaly Extremities: No edema, No Calf Tenderness Laboratory Results 12/29/18 16:02: Troponin I < 0.015 12/29/18 19:34: Troponin I < 0.015 12/30/18 06:15: Sodium 142, Potassium 5.1, Chloride 110 H, Carbon Dioxide 27.0, Anion Gap 5, BUN 53 H, Creatinine 3.47 H, Estim Creat Clear Calc 16.98, Est GFR (MDRD) Af Amer 23 L, Est GFR (MDRD) Non-Af 19 L, BUN/Creatinine Ratio 15.3, Glucose 140 H, Calcium 8.4 L, Triglycerides 78, Cholesterol 132, LDL Cholesterol 67, VLDL Cholesterol 16, HDL Cholesterol 49, TSH 0.77 Current Medications Acetaminophen (Tylenol) 650 mg PO Q6H PRN PRN PRN Reason: Mild pain 1-3/Temp > 100.7 F Last Admin: 12/30/18 13:43 Dose: 650 mg Documented by: Amlodipine Besylate (Norvasc) 10 mg PO DAILY [facility] Last Admin: 12/30/18 10:17 Dose: 10 mg Documented by: Atorvastatin Calcium (Lipitor) 40 mg PO DAILY@2200 [facility] Carvedilol (Coreg) 25 mg PO BID [facility] Last Admin: 12/30/18 10:16 Dose: 25 mg Documented by: [facility] ([facility]itamin [facility]) [facility] Last Admin: 12/30/18 10:16 Dose: 1,000 unit Documented by: Clopidogrel Bisulfate (Plavix) 75 mg PO DAILY [facility] Last Admin: 12/30/18 10:16 Dose: 75 mg Documented by: Dextrose (D50w Syringe) 0 gm IV X1 PRN; Protocol PRN Reason: Hypoglycemia Ferrous Sulfate (Ferrous Sulfate) [facility] Last Admin: 12/30/18 10:16 Dose: 325 mg Documented by: Gabapentin [facility]urontin) [facility] Last Admin: 12/30/18 10:16 Dose: 300 mg Documented by: Glucagon () 1 mg IM .X1 PRN PRN Reason: Hypoglycemia Heparin Sodium (Porcine) (Heparin Na) 5,000 unit SC Q12 [facility] Last Admin: 12/30/18 10:16 Dose: 5,000 unit Documented by: Hydralazine HCl (Apresoline) 100 mg PO TID [facility] Last Admin: 12/30/18 13:43 Dose: 100 mg Documented by: Isosorbide Mononitrate (Imdur) 60 mg PO DAILY [facility] Last Admin: 12/30/18 10:17 Dose: 60 mg Documented by: Levothyroxine Sodium (Synthroid) 75 mcg PO DAILY@0600 [facility] Last Admin: 12/30/18 06:14 Dose: 75 mcg Documented by: Ondansetron HCl (Zofran) 4 mg IV Q8H PRN PRN PRN Reason: NAUSEA/VOMITING Sertraline HCl (Zoloft) 25 mg PO DAILY [facility] Last Admin: 12/30/18 10:16 Dose: 25 mg Documented by: Sodium Bicarbonate (Sodium Bicarbonate) 650 mg PO BID [facility] Last Admin: 12/30/18 10:16 Dose: 650 mg Documented by: Medical Necessity - Tobacco Use Smoking Status: Former smoker Tobacco Use: Non-smoker Assessment/Plan All Active Problems (Last Updated 12/29/18 @ 11:41 by Rob William DO) HFrEF (heart failure with reduced ejection fraction) (Acute) Acute respiratory insufficiency (Acute) History of broken leg (Resolved) 1. Acute heart failure with preserved ejection fraction EF 65% Chest x-ray more consistent with CHF rather than pneumonia DC IV lasix given ADRIAN Request records from Dr. Rivera at [facility], whom he saw within the past few weeks, as well as records from [facility] in [place], [place]. Continue with carvedilol, hydralazine, isosorbide. Patient not a candidate for CHRISTEL inhibitors nor angiotensin receptor blockers given his chronic kidney disease status 2. Acute hypoxic respiratory insufficiency resolved Secondary to above but complicated by the patient's underlying COPD I do not feel, at this time, the patient is an exacerbation of COPD and so we will hold off on any additional steroids Bronchodilators Check an amatory pulse ox, patient still requiring oxygen prior to discharge. 3. ADRIAN Cr 2.99 to now 3.47 Hold lasix and monitor consider nephrology consult if worsens more. 4. Chronic kidney disease stage IV Monitor closely while the patient is on Lasix Patient does have a fistula in his right upper extremity but not anywhere near ready for use Follow-up with Dr. Pappas for further evaluation as outpatient 5. VTE prophylaxis: Moderate risk. Subcu heparin 6. Advanced care planning: Discussed with the patient. Patient wishes to be full CODE STATUS at this time. DW patient's at bedside. Code Visit Inpatient E&M: 10714 Subs Hosp L2
--- NOTE | 2018-12-30 17:29 | CASEMGMT ---
Addendum entered by Brittany Jeter 12/30/18 17:35: [facility] Brother Feliciano Fernandes [phone], lives in [place] as another form of contact when reviewing demographics. FLO [place] Original Note: RN CM Assessment Introduced role of RN CM to patient.? Patient is alert, oriented and able?to participate in RN CM Assessment. ?Care providers, pharmacy, and demographics verified. Presentation: SOB x1 week. H/o COPD Admit Dx: CHF Re-Admit: No Barriers/Issues: None, patient states follows a low salt, fluid restriction and daily weight. Denies being on a diuretic. States that he has many children and grandchildren- some still younger and in their teens that he cares for. PCP: Jamia Comer Specialists: Nephro- Dr Trevino, Cardio- [facility] and doesn't know name. Pulm- [facility] and doesn't know name. Preferred Pharmacy: [facility] Insurance: [facility] A[facility]B, [facility] Rx Benefit:?Yes ?LNOK: Kat Fernandes LW/HPOA: [facility] has a HPOA who is Kat Fernandes-aware to bring in to place on file. Would like info on LW. Living Arrangements:?Lives with his in a mobile home with 3 steps to enter ADL?s: Independent with ambulation and ADLs Transportation: DME: Has but does not use: Shower chair, walker, WC, Cane HHC: None SNF: Past in [place] Goal: Home and does not think will have any needs. Denies any concerns/issues/questions with DC planning at this time. Aware CM remains available for any emerging needs. DC PLAN: Home with no anticipated needs identified at this time. FLO [place]
[2018-12-30] MEDS: Atorvastatin Calcium 40 MG Tablet PO (21:29)
[2018-12-31] VITALS (8 sets, daily range): BP systolic 111–118; BP diastolic 60–65; PULSE 58–66; RESP 16–20; TEMP 36.4–37.2; O2SAT 94–97
[2018-12-31] MEDS: Levothyroxine 75 MCG Tablet PO (05:05)
[2018-12-31] MEDS: hydrALAZINE 50 MG Tablet 100 MG PO (05:05)
[2018-12-31 07:24] LABS: Anion Gap 3 (5-15); BUN 57 mg/dL (7-18); BUN/Creat Ratio 18.3 RATIO (10-20); Calcium,Total 8.2 mg/dL (8.5-10.1); Chloride 110 mmol/L (98-107); Creatinine, Serum 3.12 mg/dL (0.70-1.30); EST Glomerular Filtration Rate 21 mL/min (>60); Est Glom Filt Rate - Afr Amer 25 mL/min (>60); Estimated Creatinine Clearance 18.89 ml/min; Glucose 93 mg/dL (74-106); Potassium 4.5 mmol/L (3.5-5.1); Sodium Level 141 mmol/L (136-145)
--- NOTE | 2018-12-31 08:27 | PCM.DC ---
- Discharge Diagnoses Current Active Problems: Current Active and Chronic Problems (Last Updated 12/30/18 @ 15:17 by Rob William DO) HFrEF (heart failure with reduced ejection fraction) (Acute) Acute respiratory insufficiency (Acute) CAD (coronary artery disease) (Chronic) Hypothyroid (Chronic) You will use the following diet at home:: Fluid restricted (specify 2000 mls, 1500 mls) - 1500 Your food should be the consistency of: Regular Your liquids should be the consistency of: Regular/Thin Discharge Activity: Return to Normal Activity Call your doctor if you observe: Fever of 101 or Higher Allergies/Adverse Reactions: Allergies aspirin [ASA] Allergy (Verified 12/29/18 05:58) Other Medications to take at Discharge amlodipine 10 mg tablet 10 mg PO DAILY 10/22/18 atorvastatin 40 mg tablet 40 mg PO DAILY 10/22/18 carvedilol 25 mg tablet 25 mg PO BID 10/22/18 cholecalciferol (vitamin D3) 1,000 unit capsule 1,000 unit PO DAILY 10/22/18 clopidogrel 75 mg tablet 75 mg PO DAILY 10/22/18 ferrous sulfate 325 mg (65 mg iron) tablet 325 mg PO DAILY 10/22/18 gabapentin 300 mg capsule 300 mg PO BID 10/22/18 hydralazine 100 mg tablet 100 mg PO TID tab 10/22/18 isosorbide mononitrate ER 60 mg tablet,extended release 24 hr 60 mg PO DAILY 10/22/18 levothyroxine 75 mcg capsule 75 mcg PO DAILY 10/22/18 sertraline 25 mg tablet 25 mg PO DAILY 10/22/18 sodium bicarbonate 650 mg tablet 650 mg PO BID tab 10/22/18 Albuterol Aerosols [Ventolin Aerosols] 2.5 mg INHALATION Q6H PRN PRN 11/12/18 Albuterol Inhaler [Ventolin Hfa] 1 - 2 puff INHALATION Q4H PRN PRN 11/12/18 Furosemide [Lasix] 20 mg PO DAILY #30 tab 12/31/18 The following prescriptions were given: Furosemide [Lasix] 20 mg PO DAILY #30 tab Transmission Status: Pending to [facility] [address] [facility]. Orders to be completed after discharge: Basic Metabolic Profile (BMP) Time Frame: 1 Week, Facility: [facility], Location: Laboratory Primary Care Physician: Jamia Comer MD [Primary Care Provider] - Within 1 Week Test Results: Test results from this visit will be discussed in further detail at your follow-up appointment, if applicable. Proposed Discharge Date: 12/31/18
--- NOTE | 2018-12-31 08:34 | DS.PCM_ITS ---
Discharge Date and Diagnosis - Problem List Patient Problems: Active and Suspected Problems (Last Updated 12/31/18 @ 08:40 by Rob William DO) HFrEF (heart failure with reduced ejection fraction) (Acute) Acute respiratory insufficiency (Acute) Date of Admission: 12/29/18 Date of Discharge: 12/31/18 - Primary Discharge Diagnosis Active and Suspected Problems (Last Updated 12/30/18 @ 15:17 by Rob William DO) HFrEF (heart failure with reduced ejection fraction) (Acute) Acute respiratory insufficiency (Acute) 1. Acute heart failure with preserved ejection fraction * EF 65%, previously was 25-35% * Chest x-ray more consistent with CHF rather than pneumonia * Reviewed records from [facility] in [place], [place]. * Request records from Dr. Rivera at [facility], whom he saw within the past few weeks, as well as records from [facility] in [place], [place]. * Continue with carvedilol, hydralazine, isosorbide. * Patient not a candidate for CHRISTEL inhibitors nor angiotensin receptor blockers given his chronic kidney disease status * Furosemide 20 daily. Check BMP in 1 week. 2. Acute hypoxic respiratory insufficiency * resolved * Secondary to above but complicated by the patient's underlying COPD * I do not feel, at this time, the patient is an exacerbation of COPD and so we will hold off on any additional steroids * Bronchodilators * Check an amatory pulse ox, patient still requiring oxygen prior to discharge. 3. ADRIAN * Improving Cr 2.99 to 3.47 to 3.12 after holding lasix. * Follow up with Dr. Trevino * Follow up with Dr. Pappas for fistula follow up . 4. Chronic kidney disease stage IV * Patient does have a fistula in his right upper extremity but not anywhere near ready for use * Follow-up with Dr. Pappas for further evaluation as outpatient 5. Eye lid swelling * states it has been going on for years. Complains of itching eyes. * TSH normal. * I am not sure if due to allergies, but recommend Flonase and follow up with ophthalmology. - Secondary Discharge Diagnosis Chronic Problems (Last Updated 12/30/18 @ 15:17 by Rob William DO) Thyroid disease (Chronic) CAD (coronary artery disease) (Chronic) Hypothyroid (Chronic) History of arteriovenostomy for renal dialysis (Chronic) Chronic renal failure, stage 4 (severe) (Chronic) hx of APLL (Chronic) Hx of CABG (Chronic) Hx of cardiac pacemaker (Chronic) History of open heart surgery (Chronic) Anemia (Chronic) COPD (chronic obstructive pulmonary disease) (Chronic) Acid reflux (Chronic) Hypertension (Chronic) Afib (Chronic) Gout (Chronic) Arthritis (Chronic) Hospital Course and Treatment Imaging Results: Clinical Impression(s) from Imaging Studies Chest X-Ray 12/29/18 07:26 IMPRESSION: Left lower lobe pneumonia or atelectasis. Electronically Signed: Juventino Huynh MD at 8:11 EDT Tel , Service support , Operations: None Procedures: 2-D Echocardiogram Summary of Care Provided: The patient is a 73 year old M's with shortness of breath. X-ray is consistent with CHF and patient was started on Lasix. Patient did develop acute kidney injury where his creatinine went from 2.992 3.47. Lasix was held on the third. Today, the fourth, his creatinine is down to 3.12. Patient has chronic kidney disease stage IV and is currently seeing nephrology and in the process of getting a fistula finalized with Dr. Pappas. Patient will be discharged with 20 mg of Lasix and instructed to check his weight daily. Patient will need to have his BMP checked in a week's time to make sure his kidney function is not worsening. Patient instructed to check his weight daily and to notify his physician if he puts on more than 2 pounds one day or 3 pounds in 1 week. Patient will follow-up with Dr. Trevino, nephrology, Dr. Pappas, vascular surgery, and Dr. Rivera of cardiology at [facility]. I did review records from the hospital in [place], [place] where patient had endovascular repair of iliac artery as well as small AAA, aortic valve replacement and CABG. [] Patient Problems: Active and Suspected Problems (Last Updated 12/31/18 @ 08:40 by Rob William DO) HFrEF (heart failure with reduced ejection fraction) (Acute) Acute respiratory insufficiency (Acute) - Physical Exam General: Alert, No apparent distress HEENT: Atraumatic, Normocephalic, - - upper and lower swelling of eyelids. la crimation. slight injection of sclera. Lungs: Clear to auscultation, Normal air movement, No rhonchi, No wheeze Cardiovascular: Regular rate, Regular Rhythm, - - 2/6 SHAISTA at RUSB. Abdomen: Bowel Sounds Present, Soft, Non Tender, Non-Distended Extremities: No edema, No Calf Tenderness Vital Signs Temp Pulse Resp BP Pulse Ox 37.2 C 60 20 H 111/65 94 12/31/18 03:55 12/31/18 07:36 12/31/18 03:55 12/31/18 03:55 12/31/18 07:22 Oxygen Flow Rate (L/min) 2 Oxygen Delivery Method Nasal Cannula Weight: 78 kg Body Mass Index (BMI) 28.0 Intake and Output for Last 24 Hours 12/29/18 12/30/18 12/31/18 23:59 23:59 23:59 Intake Total 550 / 550 1620 / 1620 100 / 100 Output Total 400 / 400 1875 / 1875 325 / 325 Balance 150 / 150 -255 / -255 -225 / -225 Laboratory Tests Past 24 Hrs 12/31/18 06:25 Sodium 141 Potassium 4.5 Chloride 110 H Carbon Dioxide 28.0 Anion Gap 3 L BUN 57 H Creatinine 3.12 H Estim Creat Clear Calc 18.89 Est GFR (MDRD) Af Amer 25 L Est GFR (MDRD) Non-Af 21 L BUN/Creatinine Ratio 18.3 Glucose 93 Calcium 8.2 L Discharge Diet: 6 Cup Fluid Restriction, 2000 mg Sodium Diet Discharge Activity: Return to Normal Activity Call your doctor if you observe: Fever of 101 or Higher Home Medications: Medications to take at Discharge amlodipine 10 mg tablet 10 mg PO DAILY 10/22/18 atorvastatin 40 mg tablet 40 mg PO DAILY 10/22/18 carvedilol 25 mg tablet 25 mg PO BID 10/22/18 cholecalciferol (vitamin D3) 1,000 unit capsule 1,000 unit PO DAILY 10/22/18 clopidogrel 75 mg tablet 75 mg PO DAILY 10/22/18 ferrous sulfate 325 mg (65 mg iron) tablet 325 mg PO DAILY 10/22/18 gabapentin 300 mg capsule 300 mg PO BID 10/22/18 hydralazine 100 mg tablet 100 mg PO TID tab 10/22/18 isosorbide mononitrate ER 60 mg tablet,extended release 24 hr 60 mg PO DAILY 10/22/18 levothyroxine 75 mcg capsule 75 mcg PO DAILY 10/22/18 sertraline 25 mg tablet 25 mg PO DAILY 10/22/18 sodium bicarbonate 650 mg tablet 650 mg PO BID tab 10/22/18 Albuterol Aerosols [Ventolin Aerosols] 2.5 mg INHALATION Q6H PRN PRN 11/12/18 Albuterol Inhaler [Ventolin Hfa] 1 - 2 puff INHALATION Q4H PRN PRN 11/12/18 Fluticasone 0.05% [Flonase Nasal [place]] 1 spray NASAL BID #1 bottle 12/31/18 Furosemide [Lasix] 20 mg PO DAILY #30 tab 12/31/18 Following Prescrptions Were Given to Patient: Fluticasone 0.05% [Flonase Nasal [place]] 1 spray NASAL BID #1 bottle Furosemide [Lasix] 20 mg PO DAILY #30 tab Transmission Status: Pending to [facility] Other Amb Orders: Basic Metabolic Profile (BMP) Time Frame: 1 Week, Facility: [facility], Location: Laboratory Primary Care Physician: Jamia Comer MD [Primary Care Provider] - Within 1 Week Please Follow Up With: Char Trevino DO When: 1 month Please Follow Up With: Miguel When: 1 month Please Follow Up With: Rod Pappas MD When: call for appt Disposition: Home Minutes spent on discharge:: 45 Patient Condition:: Fair Medical Necessity - Tobacco Use Smoking Status: Former smoker Tobacco Use: Non-smoker Meaningful Use Info Meaningful Use Diagnoses (Choose all that apply): CHF - CHF CHRISTEL/ARB ordered at discharge?: No Reason CHRISTEL/ARB not ordered?: Worsening renal dysfunctn Documented LVEF (%): 65 Code Visit Inpatient E&M: 40443 Disch Hosp
[2018-12-31] MEDS: Carvedilol 25 MG Tablet PO (08:58)
[2018-12-31] MEDS: Gabapentin 300 MG Capsule PO (08:58)
[2018-12-31] MEDS: Heparin Injection (Vial) 5,000 UNIT/ML VIAL 5000 UNIT SC (08:58)
[2018-12-31] MEDS: Ferrous Sulfate 325 MG Tablet PO (08:58)
[2018-12-31] MEDS: Sodium Bicarbonate 650 MG Tablet PO (08:59)
[2018-12-31] MEDS: Clopidogrel Bisulfate 75 MG Tablet PO (08:59)
[2018-12-31] MEDS: amLODIPine 10 MG Tablet PO (08:59)
[2018-12-31] MEDS: Sertraline 50 MG Tablet 25 MG PO (08:59)
[2018-12-31] MEDS: Isosorbide Mononitrate 60 MG Tablet PO (08:59)
--- NOTE | 2019-01-04 11:45 | CASEMGMT ---
Case Management DC F/u Call: DC Date: 12/31/18 DC Diagnosis: HFrEF (heart failure with reduced ejection fraction) (Acute), Acute respiratory insufficiency (Acute) DC Disposition: Home Lace/Strata: 12/30 Called patient cell listed in demographics, no answer and just kept ringing with no Voice recording. Called patient Kat Fernandes cell in listed demographics- per patient initial assessment told this production underwriter was HPOA. Kat answered and states that patient is doing the same since discharge. Denies any issues/concerns/questions with aftercare instructions, f/u or medications. [facility] has picked up his medications and taking them. [facility] has a f/u appointment with his operation manager in [place] today. [facility] plans to get his blood drawn on Thursday. [facility] has an appointment made with Nephro Dr Trevino coming up but [facility] it is on the calendar on refrigerator and not accessible at this time. Did go to appointment with Dr Pappas yesterday. Thanked for patient seeking care with [facility] and phone conversation was ended. Mahnaz Jeter RNCM
== END 2018-12-31 11:32 | disposition home or self-care (01) | DRG 291 ==
LOC: ED 07:34 → PCU 12:07
PROVIDERS: Hospitalist; Emergency Provider Emergency Medicine; Family Provider Internal Medicine; PCP Internal Medicine
DX: I13.0 Hypertensive heart and chronic kidney disease with heart failure and stage 1 through stage 4 chronic kidney disease, or unspecified chronic kidney disease (principal); I50.21 Acute systolic (congestive) heart failure; N17.9 Acute kidney failure, unspecified; N18.4 Chronic kidney disease, stage 4 (severe); R09.02 Hypoxemia; R06.89 Other abnormalities of breathing; H02.849 Edema of unspecified eye, unspecified eyelid; I25.10 Atherosclerotic heart disease of native coronary artery without angina pectoris; E03.9 Hypothyroidism, unspecified; J44.9 Chronic obstructive pulmonary disease, unspecified; K21.9 Gastro-esophageal reflux disease without esophagitis; D64.9 Anemia, unspecified; M19.90 Unspecified osteoarthritis, unspecified site; M1A.9XX0 Chronic gout, unspecified, without tophus (tophi); Z95.2 Presence of prosthetic heart valve; Z95.1 Presence of aortocoronary bypass graft; Z87.891 Personal history of nicotine dependence; Z95.810 Presence of automatic (implantable) cardiac defibrillator
CPT/HCPCS: 36415; 71045; 80048; 80061; 83880; 84443; 84484; 85025; 93005; 93306; 94640; 99251; 99285; 99406; Q9957; A4216; G0463; J1940

== ENCOUNTER → 2019-01-19 14:22 | Outpatient (CLI) | payer MEDICARE, MEDICAID, SELFPAY ==
[2018-12-31 09:15] VITALS: BMI 28.0
[2019-01-19 17:41] LABS: Hematocrit 31.9 % (40-54); Hemoglobin 9.4 g/dL (13.0-16.5); Mean Corp Hgb Conc 29.5 g/dL (32-36); Mean Corpuscular Hgb 27.9 pg (27.0-32.0); Mean Corpuscular Volume 94.7 fL (80-94); Mean Platelet Vol. 9.7 fl (6.2-12.0); Platelet Count 218 K/mm3 (150-450); RBC Distribution Width CV 18.1 % (11.6-14.6); RBC Distribution Width SD 62.4 fl (35.1-43.9); Red Blood Count 3.37 M/mm3 (4.6-6.2); White Blood Count 6.8 K/mm3 (4.4-11.0)
[2019-01-19 18:09] LABS: Ferritin 277 ng/mL (26-388); Iron 46 ug/dL (65-175); Iron Binding Capacity,Total 215 ug/dL (250-450)
[2019-01-20 09:04] LABS: PTHIN 144.6 pg/mL (18.4-80.1)
== END ==
PROVIDERS: Family Provider Internal Medicine; PCP Internal Medicine; Visit Provider Internal Medicine Nephrology
DX: D50.9 Iron deficiency anemia, unspecified (principal); N18.4 Chronic kidney disease, stage 4 (severe)
CPT/HCPCS: 36415; 82728; 83540; 83550; 83970; 85027

== ENCOUNTER → 2019-01-21 10:11 | Outpatient (CLI) | payer MEDICARE, MEDICAID, SELFPAY ==
[2018-12-08 10:49] VITALS: BMI 27.8
--- NOTE | 2018-12-08 11:05 | HP_ITS ---
Intake Vital Signs 12/08/18 Height 5 ft 5 in 12/08/18 Weight: 167 lb 12/08/18 Body Mass Index (BMI) 27.8 12/08/18 Blood Pressure 129/77 H 12/08/18 Blood Pressure Location Rt brachial 12/08/18 Blood Pressure Position Sitting 12/08/18 Respiratory Rate 18 12/08/18 Pulse Rate 63 12/08/18 Pulse Source Monitor 12/08/18 Temperature 98.5 F 12/08/18 Temperature Source Oral 12/08/18 Pulse Ox 91 12/08/18 Oxygen Delivery Method room air 12/08/18 Body Mass Index (BMI) 27.8 Intake Visit Reasons: PO Fistula Placement RC 11/19 Chief Complaint: post fistula placement Jig Borer Required: No Is patient in pain?: Yes (some soreness) Allergies aspirin [ASA] Allergy (Verified 12/08/18 10:51) Other Medications amlodipine 10 mg tablet 10 mg PO DAILY 10/22/18 [History Confirmed 12/08/18] atorvastatin 40 mg tablet 40 mg PO DAILY 10/22/18 [History Confirmed 12/08/18] carvedilol 25 mg tablet 25 mg PO BID 10/22/18 [History Confirmed 12/08/18] cholecalciferol (vitamin D3) 1,000 unit capsule 1,000 unit PO DAILY 10/22/18 [History Confirmed 12/08/18] clopidogrel 75 mg tablet 75 mg PO DAILY 10/22/18 [History Confirmed 12/08/18] ferrous sulfate 325 mg (65 mg iron) tablet 325 mg PO DAILY 10/22/18 [History Confirmed 12/08/18] gabapentin 300 mg capsule 300 mg PO BID 10/22/18 [History Confirmed 12/08/18] hydralazine 100 mg tablet 100 mg PO TID tab 10/22/18 [History Confirmed 12/08/18] isosorbide mononitrate ER 60 mg tablet,extended release 24 hr 60 mg PO DAILY 10/22/18 [History Confirmed 12/08/18] levothyroxine 75 mcg capsule 75 mcg PO DAILY 10/22/18 [History Confirmed 12/08/18] sertraline 25 mg tablet 25 mg PO DAILY 10/22/18 [History Confirmed 12/08/18] sodium bicarbonate 650 mg tablet 650 mg PO BID tab 10/22/18 [History Confirmed 12/08/18] Albuterol Aerosols [Ventolin Aerosols] 2.5 mg INHALATION Q6H PRN PRN 11/12/18 [History Confirmed 12/08/18] Albuterol Inhaler [Ventolin Hfa] 1 - 2 puff INHALATION Q4H PRN PRN 11/12/18 [History Confirmed 12/08/18] furosemide 20 mg tablet 10 mg PO DAILY tab 12/08/18 [History Confirmed 12/08/18] PFSH Medical History Chronic renal failure, stage 4 (severe) (Chronic) Anemia (Acute) COPD (chronic obstructive pulmonary disease) (Chronic) Shortness of breath (Acute) Acid reflux (Acute) Hypertension (Chronic) Afib (Acute) Heart disease (Acute) Gout (Acute) Arthritis (Acute) Thyroid disease (Acute) Fatigue (Acute) Surgical History hx of APLL (Acute) Hx of CABG (Acute) Hx of cardiac pacemaker (Acute) History of broken leg (Acute) History of open heart surgery (Acute) History of arteriovenostomy for renal dialysis (Acute) Family History Father Diabetes Kidney disease Brother Colon cancer Cancer Sister Breast cancer Social History (Updated 12/08/18 @ 13:30 by Cindy Leonard PA-C) Smoking Status: Former smoker alcohol intake: former substance use type: does not use caffeine: Yes what type of physical activity do you participate in: none frequency: does not exercise HPI HPI HPI: ROBERT FRASER, is a 73 M who presents to the office today for HPI HPI Surgical H&P: Yes HPI: ROBERT FRASER, is a 73 M who presents to the office today for an update history and physical and recheck on his fistula. Patient has chronic renal failure stage 4. Dr. Pappas performed a stage I right upper extremity basilic vein to brachial artery arteriovenous hemodialysis fistula creation on 11/19/18. Patient tolerated the procedure well. He notes discomfort has continued. He is not currently on dialysis. Dr. Trevino is his offal roller. He denies numbness/tingling in his fingers/hand. Patient denies any previous complications with the first surgery. Patient does have a pacemaker, left chest. He is on Plavix as a blood thinner. ROS General General: Yes fatigue; no weight change, appetite, colon cancer, breast cancer or weakness HEENT HEENT: Yes eye surgery; no difficulty swallowing, eye injury, swollen glands or hoarseness Endo Endocrine: Yes thyroid disease; no diabetes mellitus, thyroid cancer, Hair loss, heat intolerance or cold intolerance Skin Skin: No rash or changing moles Musc Musculoskeletal: Yes arthritis and gout; no back problems, rheumatoid arthritis or joint pain Cardio Cardiovascular: Yes heart disease, atrial fibrillation and high blood pressure; no murmur, pacemaker, heart attack, heart stent, palpitations, shortness of breat with exertion or chest pain Psych Psychiatric: No depression, anxiety or hearing voices Resp Respiratory: Yes shortness of breath, No sleep apnea, No cough, Yes COPD, No asthma, No emphysema, No wheezing Gastro Gastrointestinal: No abdominal pain, No nausea or vomiting, No diarrhea, No constipation, No blood in stool, Yes acid reflux, No hemorrhoids, No ulcers, No gallbladder problem, No black,tarry stools Shen Hematologic: No blood thinners, No blood disorders, No bleeding, Yes anemia, No blood clots Neuro Neurologic: No weakness Exam Const General: cooperative, comfortable, no acute distress HENMT Head: normal to inspection Eyes General: appearance normal, both eyes and all related structures Neck Neck: normal visual inspection Neck mass: No Resp Effort & Inspection: normal respiratory effort Auscultation: wheezes Cardio Rate: regular rate Rhythm: regular rhythm Heart Sounds: no murmurs GI Inspection: normal to inspection Palpation: soft Auscultation: normal bowel sounds Skin General: no rashes or lesions noted Neuro General: no focal motor deficits, CN's II-XI intact bilaterally Extrem General: normal to inspection Other: Right upper extremity fistula- incision very nicely healed. Good pulse, bruit and thrill. Non-tender to palpation. Psych Appearance: grossly normal Affect: normal affect Assessment & Plan Problems 1. Chronic renal failure, stage 4 (severe) N18.[address] Pappas will plan to perform stage II transposition of the right upper extremity AV fistula. Procedure details, risks and benefits have been explained to the patient. Patient and his have had the opportunity to ask and have questions answered. Patient verbally understands and agrees with the plan. Hold Plavix 3 days prior to the procedure. Of note, patient asked for a refill on narcotic pain medication, this was declined by myself. Coding Level of Care Code No Charge Diagnoses Chronic renal failure, stage 4 (severe) N18.4 Comment Update H&P 12/08/18 3983 <Electronically signed by Cindy soler PA-C> Date _ Cindy Leonard PA-C
[2018-12-24 11:01] LABS: Hematocrit 31.9 % (40-54); Hemoglobin 9.8 g/dL (13.0-16.5); Mean Corp Hgb Conc 30.7 g/dL (32-36); Mean Corpuscular Hgb 28.2 pg (27.0-32.0); Mean Corpuscular Volume 91.9 fL (80-94); Platelet Count 187 K/mm3 (150-450); RBC Distribution Width CV 17.7 % (11.6-14.6); RBC Distribution Width SD 59.7 fl (35.1-43.9); Red Blood Count 3.47 M/mm3 (4.6-6.2); White Blood Count 8.4 K/mm3 (4.4-11.0)
[2018-12-24 11:24] LABS: Anion Gap 4 (5-15); BUN 31 mg/dL (7-18); BUN/Creat Ratio 11.1 RATIO (10-20); Calcium,Total 8.8 mg/dL (8.5-10.1); Chloride 114 mmol/L (98-107); Creatinine, Serum 2.79 mg/dL (0.70-1.30); EST Glomerular Filtration Rate 24 mL/min (>60); Est Glom Filt Rate - Afr Amer 29 mL/min (>60); Glucose 92 mg/dL (74-106); Potassium 4.4 mmol/L (3.5-5.1); Sodium Level 144 mmol/L (136-145)
[2018-12-29 06:04] VITALS: BP 135/63; PULSE 65; RESP 18; TEMP 36.8; O2SAT 93; BMI 28.6
[2018-12-29 06:30] VITALS: PULSE 74; RESP 24
[2018-12-29] MEDS: Ipratropium/Albuterol Sulfate 3 ML AMPUL.NEB INHALATION (06:30)
[2018-12-31 09:15] VITALS: BMI 28.0
== END ==
PROVIDERS: Family Provider Internal Medicine; PCP Internal Medicine; Referring Provider Surgery; Visit Provider Surgery
DX: Z01.818 Encounter for other preprocedural examination (principal)
CPT/HCPCS: 36415; 80048; 85027; 94640

== ENCOUNTER → 2019-02-28 12:05 | Outpatient (CLI) | payer MEDICARE, MEDICAID, SELFPAY ==
[2018-12-31 09:15] VITALS: BMI 28.0
[2019-02-28 12:54] LABS: Albumin, Serum 3.7 g/dL (3.2-5.0); BUN 58 mg/dL (7-18); BUN/Creat Ratio 13.8 RATIO (10-20); Calcium,Total 8.7 mg/dL (8.5-10.1); Chloride 103 mmol/L (98-107); Creatinine, Serum 4.19 mg/dL (0.70-1.30); EST Glomerular Filtration Rate 15 mL/min (>60); Est Glom Filt Rate - Afr Amer 18 mL/min (>60); Glucose 108 mg/dL (74-106); Phosphorus 3.6 mg/dL (2.5-4.9); Potassium 3.5 mmol/L (3.5-5.1); Sodium Level 141 mmol/L (136-145)
== END ==
PROVIDERS: Family Provider Internal Medicine; PCP Internal Medicine; Visit Provider Internal Medicine Nephrology
DX: N18.4 Chronic kidney disease, stage 4 (severe) (principal)
CPT/HCPCS: 36415; 80069

== ENCOUNTER → 2019-04-07 20:15 | Outpatient (CLI) | payer MEDICARE, MEDICAID, SELFPAY ==
[2018-12-31 09:15] VITALS: BMI 28.0
== END ==
PROVIDERS: Family Provider Internal Medicine; PCP Internal Medicine
DX: G47.33 Obstructive sleep apnea (adult) (pediatric) (principal); J43.9 Emphysema, unspecified; I50.9 Heart failure, unspecified
CPT/HCPCS: 95810

== ENCOUNTER → 2019-04-28 20:00 | Outpatient (CLI) | payer MEDICARE, MEDICAID, SELFPAY ==
[2018-12-31 09:15] VITALS: BMI 28.0
[2019-04-28] MEDS: Zolpidem Tartrate 5 MG Tablet PO (22:00)
== END ==
PROVIDERS: Family Provider Internal Medicine; PCP Internal Medicine
DX: G47.33 Obstructive sleep apnea (adult) (pediatric) (principal); J44.9 Chronic obstructive pulmonary disease, unspecified
CPT/HCPCS: 95811

== ENCOUNTER 2019-05-09 06:00 | Day surgery (SDC) | payer MEDICARE, MEDICAID, SELFPAY ==
--- NOTE | 2019-04-18 04:07 | HP_ITS ---
Intake Vital Signs 04/18/19 Height 5 ft 5 in 04/18/19 Weight: 162 lb 04/18/19 BMI 26.9 04/18/19 BP 109/60 04/18/19 Blood Pressure Location Lt brachial 04/18/19 Position Sitting 04/18/19 Respiration 18 04/18/19 Pulse 61 04/18/19 Pulse Source Monitor 04/18/19 Temp 97.6 F L 04/18/19 Temp Source Oral 04/18/19 Pulse Oximetry (%) 94 04/18/19 Oxygen Delivery Method room air Intake Visit Reasons: Update H/P Fistula Chief Complaint: update history and physical for surgery [place] Steward Required: No Accompanied by: Is patient in pain?: No Allergies aspirin [ASA] Allergy (Verified 04/18/19 13:08) Other Medications amlodipine 10 mg tablet 10 mg PO DAILY 10/22/18 [History Confirmed 04/18/19] atorvastatin 40 mg tablet 40 mg PO DAILY 10/22/18 [History Confirmed 04/18/19] carvedilol 25 mg tablet 25 mg PO BID 10/22/18 [History Confirmed 04/18/19] cholecalciferol (vitamin D3) 25 mcg (1,000 unit) capsule 1,000 unit PO DAILY 10/22/18 [History Confirmed 04/18/19] clopidogrel 75 mg tablet 75 mg PO DAILY 10/22/18 [History Confirmed 04/18/19] ferrous sulfate 325 mg (65 mg iron) tablet 325 mg PO DAILY 10/22/18 [History Confirmed 04/18/19] gabapentin 300 mg capsule 300 mg PO BID 10/22/18 [History Confirmed 04/18/19] hydralazine 100 mg tablet 100 mg PO TID tab 10/22/18 [History Confirmed 04/18/19] isosorbide mononitrate 60 mg tablet,extended release 24 hr 60 mg PO DAILY 10/22/18 [History Confirmed 04/18/19] levothyroxine 75 mcg capsule 75 mcg PO DAILY 10/22/18 [History Confirmed 04/18/19] sertraline 25 mg tablet 25 mg PO DAILY 10/22/18 [History Confirmed 04/18/19] sodium bicarbonate 650 mg tablet 650 mg PO BID tab 10/22/18 [History Confirmed 04/18/19] Albuterol Aerosols [Ventolin Aerosols] 2.5 mg INHALATION Q6H PRN PRN 11/12/18 [History Confirmed 04/18/19] Albuterol Inhaler [Ventolin Hfa] 1 - 2 puff INHALATION Q4H PRN PRN 11/12/18 [History Confirmed 04/18/19] Fluticasone 0.05% [Flonase Nasal [place]] 1 spray NASAL BID #1 bottle 12/31/18 [Rx Confirmed 04/18/19] Furosemide [Lasix] 20 mg PO DAILY #30 tab 12/31/18 [Rx Confirmed 04/18/19] PFSH Medical History CAD (coronary artery disease) (Chronic) Hypothyroid (Chronic) Chronic renal failure, stage 4 (severe) (Chronic) Anemia (Chronic) COPD (chronic obstructive pulmonary disease) (Chronic) Acid reflux (Chronic) Hypertension (Chronic) Afib (Chronic) Gout (Chronic) Arthritis (Chronic) 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) Surgical History History of arteriovenostomy for renal dialysis (Chronic) hx of APLL (Chronic) Hx of CABG (Chronic) History of broken leg (Resolved) History of open heart surgery (Chronic) AICD (automatic cardioverter/defibrillator) present (Acute) H/O aortic valve replacement (Acute) Family History Father Diabetes Kidney disease Brother Colon cancer Cancer Sister Breast cancer Social History Smoking Status: Former smoker alcohol intake: former substance use type: does not use caffeine: Yes what type of physical activity do you participate in: none frequency: does not exercise HPI HPI HPI: ROBERT FRASER, is a 74 M who presents to the office today for HPI HPI Surgical H&P: Yes HPI: ROBERT FRASER, is a 74 M who presents to the office today for an update history and physical for an upcoming procedure. He denies any recent hospitalizations ROS General General: Yes fatigue; no weight change, appetite, colon cancer, breast cancer or weakness HEENT HEENT: Yes eye surgery; no difficulty swallowing, eye injury, swollen glands or hoarseness Endo Endocrine: Yes thyroid disease; no diabetes mellitus, thyroid cancer, Hair loss, heat intolerance or cold intolerance Skin Skin: No rash or changing moles Musc Musculoskeletal: Yes arthritis and gout; no back problems, rheumatoid arthritis or joint pain Cardio Cardiovascular: Yes heart disease, atrial fibrillation and high blood pressure; no murmur, pacemaker, heart attack, heart stent, palpitations, shortness of breat with exertion or chest pain Psych Psychiatric: No depression, anxiety or hearing voices Resp Respiratory: Yes shortness of breath, No sleep apnea, No cough, Yes COPD, No asthma, No emphysema, No wheezing Gastro Gastrointestinal: No abdominal pain, No nausea or vomiting, No diarrhea, No constipation, No blood in stool, Yes acid reflux, No hemorrhoids, No ulcers, No gallbladder problem, No black,tarry stools Shen Hematologic: No blood thinners, No blood disorders, No bleeding, Yes anemia, No blood clots Neuro Neurologic: No weakness Exam Cardio Heart Sounds: no murmurs Date _ Cindy Leonard PA-C
[2019-04-18 13:09] VITALS: BMI 28.0
[2019-05-09] VITALS (8 sets, daily range): BP systolic 89–140; BP diastolic 59–70; PULSE 51–66; RESP 16; TEMP 36.3–37.1; O2SAT 92–99; BMI 27.0
[2019-05-09] MEDS: 0.45% Normal Saline 1,000 ML 30 ML IV (06:44)
--- NOTE | 2019-05-09 07:13 | PCM.HP.BLA ---
Problem List (1) Problem with dialysis access Status: Acute Qualifiers: Encounter type: initial encounter Qualified Code(s): T82.898A - Other specified complication of vascular prosthetic devices, implants and grafts, initial encounter History and Physical Date of Admission: 05/09/19 Intake Visit Reasons: Update H/P Fistula Chief Complaint: update history and physical for surgery Motor Analyst Required: No Accompanied by: Is patient in pain?: No Allergies aspirin [ASA] Allergy (Verified 04/18/19 13:08) Other Medications amlodipine 10 mg tablet 10 mg PO DAILY 10/22/18 [History Confirmed 04/18/19] atorvastatin 40 mg tablet 40 mg PO DAILY 10/22/18 [History Confirmed 04/18/19] carvedilol 25 mg tablet 25 mg PO BID 10/22/18 [History Confirmed 04/18/19] cholecalciferol (vitamin D3) 25 mcg (1,000 unit) capsule 1,000 unit PO DAILY 10/22/18 [History Confirmed 04/18/19] clopidogrel 75 mg tablet 75 mg PO DAILY 10/22/18 [History Confirmed 04/18/19] ferrous sulfate 325 mg (65 mg iron) tablet 325 mg PO DAILY 10/22/18 [History Confirmed 04/18/19] gabapentin 300 mg capsule 300 mg PO BID 10/22/18 [History Confirmed 04/18/19] hydralazine 100 mg tablet 100 mg PO TID tab 10/22/18 [History Confirmed 04/18/19] isosorbide mononitrate 60 mg tablet,extended release 24 hr 60 mg PO DAILY 10/22/18 [History Confirmed 04/18/19] levothyroxine 75 mcg capsule 75 mcg PO DAILY 10/22/18 [History Confirmed 04/18/19] sertraline 25 mg tablet 25 mg PO DAILY 10/22/18 [History Confirmed 04/18/19] sodium bicarbonate 650 mg tablet 650 mg PO BID tab 10/22/18 [History Confirmed 04/18/19] Albuterol Aerosols [Ventolin Aerosols] 2.5 mg INHALATION Q6H PRN PRN 11/12/18 [History Confirmed 04/18/19] Albuterol Inhaler [Ventolin Hfa] 1 - 2 puff INHALATION Q4H PRN PRN 11/12/18 [History Confirmed 04/18/19] Fluticasone 0.05% [Flonase Nasal [place]] 1 spray NASAL BID #1 bottle 12/31/18 [Rx Confirmed 04/18/19] Furosemide [Lasix] 20 mg PO DAILY #30 tab 12/31/18 [Rx Confirmed 04/18/19] PFSH Medical History CAD (coronary artery disease) (Chronic) Hypothyroid (Chronic) Chronic renal failure, stage 4 (severe) (Chronic) Anemia (Chronic) COPD (chronic obstructive pulmonary disease) (Chronic) Acid reflux (Chronic) Hypertension (Chronic) Afib (Chronic) Gout (Chronic) Arthritis (Chronic) 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) Surgical History History of arteriovenostomy for renal dialysis (Chronic) hx of APLL (Chronic) Hx of CABG (Chronic) History of broken leg (Resolved) History of open heart surgery (Chronic) AICD (automatic cardioverter/defibrillator) present (Acute) H/O aortic valve replacement (Acute) Family History Father Diabetes Kidney disease Brother Colon cancer Cancer Sister Breast cancer Social History (Updated 04/19/19 @ 15:41 by Cindy Leonard PA-C) Smoking Status: Former smoker alcohol intake: former substance use type: does not use caffeine: Yes what type of physical activity do you participate in: none frequency: does not exercise HPI HPI HPI: ROBERT FRASER is a 74 M who presents to the office today for HPI HPI Surgical H&P: Yes HPI: ROBERT FRASER, is a 74 M who presents to the office today for an update history and physical for an upcoming procedure. He denies any recent hospitalizations or illnesses. Patient was scheduled and canceled the day of the his procedure due to exacerbation of CHF. Patient is not on dialysis. Patient has been evaluated by his topper packer and cleared for surgery. Patient is supposed to be on oxygen via nasal canula all of the time. Patient has also had a work up with his sales architect. Patient's previous history: ROBERT FRASER, is a 73 M who presents to the office today for an update history and physical and recheck on his fistula. Patient has chronic renal failure stage 4. Dr. Pappas performed a stage I right upper extremity basilic vein to brachial artery arteriovenous hemodialysis fistula creation on 11/19/18. Patient tolerated the procedure well. He notes discomfort has continued. He is not currently on dialysis. Dr. Trevino is his semiconductor packages sealer. He denies numbness/tingling in his fingers/hand. Patient denies any previous complications with the first surgery. Patient does have a pacemaker, left chest. He is on Plavix as a blood thinner. ROS General General: Yes fatigue; no weight change, appetite, colon cancer, breast cancer or weakness HEENT HEENT: Yes eye surgery; no difficulty swallowing, eye injury, swollen glands or hoarseness Endo Endocrine: Yes thyroid disease; no diabetes mellitus, thyroid cancer, Hair loss, heat intolerance or cold intolerance Skin Skin: No rash or changing moles Musc Musculoskeletal: Yes arthritis and gout; no back problems, rheumatoid arthritis or joint pain Cardio Cardiovascular: Yes murmur, heart disease, atrial fibrillation and high blood pressure; no pacemaker, heart attack, heart stent, palpitations, shortness of breat with exertion or chest pain Psych Psychiatric: No depression, anxiety or hearing voices Resp Respiratory: Yes shortness of breath, No sleep apnea, No cough, Yes COPD, No asthma, No emphysema, No wheezing Gastro Gastrointestinal: No abdominal pain, No nausea or vomiting, No diarrhea, No constipation, No blood in stool, Yes acid reflux, No hemorrhoids, No ulcers, No gallbladder problem, No black,tarry stools Shen Hematologic: No blood thinners, No blood disorders, No bleeding, Yes anemia, No blood clots Neuro Neurologic: No weakness Exam Const General: cooperative, healthy appearing, comfortable, no acute distress [facility] Head: normal to inspection Eyes General: appearance normal, both eyes and all related structures Neck Neck: normal visual inspection Neck mass: No Resp Effort & Inspection: normal respiratory effort Auscultation: clear to auscultation bilaterally Cardio Rate: regular rate Rhythm: regular rhythm Heart Sounds: murmur GI Inspection: normal to inspection Palpation: soft Auscultation: normal bowel sounds Skin General: no rashes or lesions noted Neuro General: no focal motor deficits, CN's II-XI intact bilaterally Extrem General: normal to inspection Psych Appearance: grossly normal Affect: normal affect Assessment & Plan Problems 1. Chronic renal failure, stage 4 (severe) N18.[address] Pappas will plan to perform stage II transposition of the right upper extremity AV fistula. Procedure details, risks and benefits have been explained to the patient. Patient and his have had the opportunity to ask and have questions answered. Patient verbally understands and agrees with the plan. Hold Plavix 3 days prior to the procedure. Coding Level of Care Code No Charge Diagnoses Chronic renal failure, stage 4 (severe) N18.4 Comment Update H&P 04/19/19 1545 <Electronically signed by Cindy Leonard PA-C> Date Cindy Leonard PA-C I have re-examined the patient. There are no clinical changes since date of exam.
--- NOTE | 2019-05-09 07:55 | DCINST_ITS ---
Discharge Diet: Renal Diet Discharge Activity: May Not Drive - for 2-3 days or while taking narcotic pain medications., May Shower, May Take a Tub Bath - in 5 days. May shower in (days): 4 Lifting Restrictions: 5 pounds Keep extremity elevated above heart level: - - Keep arm elevated above the heart level for 3 days. Additional Activity Instructions:: Exercise hand vigorously with a stress ball. Call your doctor if your incision/area has: Continuous Slow Oozing, Sudden Increased Bleeding - apply pressure and call your doctor., Increased Pain/ Swelling, Increased Redness, Foul Smelling Discharge Call your doctor if you observe: Fever of 101 or Higher Suture Line Care: Avoid Pulling/Pushing, Avoid Pinching/Bending Cleanse incision/area with: Keep Dressing Clean & Dry Additional Dressing/Incision Instructions:: Change or remove dressing in 3 days. You may leave the steri strips for one week. Allergies/Adverse Reactions: Allergies aspirin [ASA] Allergy (Verified 05/09/19 06:26) Other Medications to take at Discharge amlodipine 10 mg tablet 10 mg PO DAILY 10/22/18 atorvastatin 40 mg tablet 40 mg PO DAILY 10/22/18 carvedilol 25 mg tablet 25 mg PO BID 10/22/18 cholecalciferol (vitamin D3) 25 mcg (1,000 unit) capsule 1,000 unit PO DAILY 10/22/18 clopidogrel 75 mg tablet 75 mg PO DAILY 10/22/18 ferrous sulfate 325 mg (65 mg iron) tablet 325 mg PO DAILY 10/22/18 gabapentin 300 mg capsule 300 mg PO BID 10/22/18 hydralazine 100 mg tablet 100 mg PO TID tab 10/22/18 isosorbide mononitrate 60 mg tablet,extended release 24 hr 60 mg PO DAILY 10/22/18 levothyroxine 75 mcg capsule 75 mcg PO DAILY 10/22/18 sertraline 25 mg tablet 25 mg PO DAILY 10/22/18 Albuterol Aerosols [Ventolin Aerosols] 2.5 mg INHALATION Q6H PRN PRN 11/12/18 Albuterol Inhaler [Ventolin Hfa] 1 - 2 puff INHALATION Q4H PRN PRN 11/12/18 Furosemide [Lasix] 20 mg PO DAILY #30 tab 12/31/18 Fluticasone 0.05% [Flonase Nasal [place]] 1 spray NASAL BID 05/02/19 Fluticasone/Vilanterol [Breo Ellipta Inhaler] 1 ea IH DAILY 05/02/19 Primary Care Physician: Jamia Comer MD [Primary Care Provider] - Test Results: Test results from this visit will be discussed in further detail at your follow- up appointment, if applicable. Please Follow Up With: Rod Pappas MD - [phone] When: Call to make an appointment for suture removal and follow up in 10 days
[2019-05-09] MEDS: Bupivacaine Mpf 0.5% 30 ML VIAL (08:20)
[2019-05-09] MEDS: Heparin Injection (Vial) 5,000 UNIT/ML VIAL 5000 UNIT (10:15)
--- NOTE | 2019-05-09 11:09 | OP.PCM_ITS ---
Problem List (1) Problem with dialysis access Status: Acute Qualifiers: Encounter type: initial encounter Qualified Code(s): T82.898A - Other specified complication of vascular prosthetic devices, implants and grafts, initial encounter Report of Operation Date of Procedure: 05/09/19 Pre-Operative Diagnosis: Need for arteriovenous hemodialysis access, need for transposition right upper extremity brachial basilic arteriovenous hemodialysis fistula Post-Operative Diagnosis: Same Surgery/Procedure Performed:: Transposition right extremity basilic vein to brachial artery AV fistula creation with Vascu-Guard bovine restrictor cuff placement. REF [id number]. Lot [id number]. PN [id number]. Expiry: 10/12/2023 Description of Surgical Findings:: Timeout and informed consent was obtained. 74-year-old gent was taken to the operating room placed upon the table. He underwent monitored anesthesia care local anesthetic. This was considered to be a clean procedure so no antibiotics were given initially. After the fistula was transposed it was evident that there was a high flow state and a risk for steal. At this point the patient received 2 g of Ancef as I planned on putting in a bovine Vascu-Guard restricting cuff At the initial part of procedure the right extremity sterilely prepped draped. 1% lidocaine mixed 50-50 with 0.5% Marcaine was used as a local anesthetic. Total of 27 cc was used. 20 cc of 0.5% lidocaine was used. An oblique incision was made at the antecubital space and was then performed of the inner aspect of the right upper arm. She tedious sharp and blunt dissection as well as electrocautery dissection was used to harvest the vein. Were needed side branches were secured with 4-0 Vicryl ligatures or 3-0 Vicryl ligatures or hemoclips. The vein was noted to be very generous in size at the very initiation of the procedure. It was dissected free to the shoulder. I then measured the length. I created a more superficial tunneling on the more anterior surface of the arm. Then close the antecubital space I again dissected down finding the brachial artery. I made performed that a tunneler was placed from the brachial artery up to the proximal upper arm area. The vein was ligated distally with 3-0 Vicryl. I had the vein inked marked. It was then carefully placed with the tunneler and made absolute sure there were no twists. The patient received 7000 units of heparin. After adequate circulation time peripheral vascular clamps were placed on the brachial artery. An 11 blade was used to make an arteriotomy in that was extended with Ch scissors. The vein was sharply transected it was quite sizable and the side anastomosis was created with a running 7-0 Prolene. Prior to completion of the good antegrade retrograde flow. At the completion there is a good thrill already in the fistula on inspecting the hand though did not appear to have excellent capillary refill. There was a audible radial pulse and palpable radial pulse but somewhat weak. I felt that as the fistula continued to mature that this would likely be able to steal phenomena if one was not already present. For that reason I then used the Vascu-Guard 8 cm by point centimeter material. I slightly shortened the width of that and then then wrapped that around the origin of the fistula I used 6-0 Prolene to providing a restricting cuff. I secured that cuff to the arterial anastomosis. I then reinspected the hand appeared to have better capillary refill in the audible Doppler signal at the radial was stronger. The fistula itself though continued to have excellent flow. The patient received 30 mg of protamine as reversal agent. Powdered fibular was placed into the wound bed and then it was irrigated out. The wound was closed with multiple interrupted 3-0 Vicryl subdermal stitches trying to eliminate space. The skin edges were approximated running septic or 4-0 Monocryl. Steri- Strips Telfa 4 x 4 soft roll David wrap applied. Sponge and instrument and needle counts were reported to the surgery correct. Blood loss was 200 cc. This was due to diffuse oozing from wound edges. No apparent complication. The patient had a viable hand to completion. Specimens none. Drains none. Blood loss 200 cc. He was taken to the recovery area in satisfactory condition. Rod Pappas M.D., F.A.C.S. Type of Anesthesia:: Local MAC Anesthesiologist: Melba Woods
[2019-05-09] MEDS: HYDROcodone Bitartrate/Apap 5/325 Tablet PO (12:49)
== END 2019-05-09 13:52 | disposition home or self-care (01) ==
LOC: SDC 06:03 → AC 06:04
PROVIDERS: PCP Internal Medicine; Referring Provider Surgery; Visit Provider Surgery
PROC: (CPT 36819; principal; 2019-05-09 07:45)
DX: T82.898A Other specified complication of vascular prosthetic devices, implants and grafts, initial encounter (principal); I13.0 Hypertensive heart and chronic kidney disease with heart failure and stage 1 through stage 4 chronic kidney disease, or unspecified chronic kidney disease; N18.4 Chronic kidney disease, stage 4 (severe); I50.9 Heart failure, unspecified; Z99.2 Dependence on renal dialysis; E03.9 Hypothyroidism, unspecified; I25.10 Atherosclerotic heart disease of native coronary artery without angina pectoris; D64.9 Anemia, unspecified; I72.3 Aneurysm of iliac artery; J44.9 Chronic obstructive pulmonary disease, unspecified; K21.9 Gastro-esophageal reflux disease without esophagitis; I48.91 Unspecified atrial fibrillation; M10.9 Gout, unspecified; M19.90 Unspecified osteoarthritis, unspecified site; E78.00 Pure hypercholesterolemia, unspecified; F41.9 Anxiety disorder, unspecified; F32.9 Major depressive disorder, single episode, unspecified; Z99.81 Dependence on supplemental oxygen; Z95.810 Presence of automatic (implantable) cardiac defibrillator; Z79.02 Long term (current) use of antithrombotics/antiplatelets; Z79.899 Other long term (current) drug therapy; Z87.891 Personal history of nicotine dependence
CPT/HCPCS: 36819; J2405

== ENCOUNTER → 2019-05-19 10:41 | Outpatient (CLI) | payer MEDICARE, MEDICAID, SELFPAY ==
[2018-12-31 09:15] VITALS: BMI 28.0
[2019-05-09 06:29] VITALS: BMI 27.0
[2019-05-19 12:30] LABS: Hematocrit 28.9 % (40-54); Hemoglobin 8.7 g/dL (13.0-16.5); Mean Corp Hgb Conc 30.1 g/dL (32-36); Mean Corpuscular Hgb 26.6 pg (27.0-32.0); Mean Corpuscular Volume 88.4 fL (80-94); Mean Platelet Vol. 9.3 fl (6.2-12.0); Platelet Count 246 K/mm3 (150-450); RBC Distribution Width CV 18.6 % (11.6-14.6); RBC Distribution Width SD 59.4 fl (35.1-43.9); Red Blood Count 3.27 M/mm3 (4.6-6.2); White Blood Count 7.5 K/mm3 (4.4-11.0)
[2019-05-19 12:31] LABS: Albumin, Serum 3.4 g/dL (3.2-5.0); BUN 41 mg/dL (7-18); BUN/Creat Ratio 14.6 RATIO (10-20); Calcium,Total 8.8 mg/dL (8.5-10.1); Chloride 107 mmol/L (98-107); EST Glomerular Filtration Rate 24 mL/min (>60); Est Glom Filt Rate - Afr Amer 29 mL/min (>60); Glucose 136 mg/dL (74-106); Phosphorus 3.4 mg/dL (2.5-4.9); Potassium 3.7 mmol/L (3.5-5.1); Sodium Level 140 mmol/L (136-145)
[2019-05-19 12:40] LABS: Vitamin D,25 Hydroxy 48.1 ng/mL (29.95-100.01)
[2019-05-19 12:48] LABS: PTHIN 117.3 pg/mL (18.4-80.1)
[2019-05-19 13:04] LABS: Protein, Urine (Random) 27.6 mg/dL (<11.9); Protein:Creat Ratio 203 mg/g CRE (0-200)
== END ==
PROVIDERS: Family Provider Internal Medicine; PCP Internal Medicine; Visit Provider Internal Medicine Nephrology
DX: N18.4 Chronic kidney disease, stage 4 (severe) (principal); D50.9 Iron deficiency anemia, unspecified; R80.9 Proteinuria, unspecified; E55.9 Vitamin D deficiency, unspecified; N25.81 Secondary hyperparathyroidism of renal origin
CPT/HCPCS: 36415; 80069; 82306; 82570; 83970; 84156; 85027

== ENCOUNTER → 2019-08-24 11:34 | Outpatient (CLI) | payer MEDICARE, SELFPAY ==
[2019-05-09 06:29] VITALS: BMI 27.0
[2019-08-24 12:44] LABS: Hematocrit 33.1 % (40-54); Hemoglobin 10.2 g/dL (13.0-16.5); Mean Corp Hgb Conc 30.8 g/dL (32-36); Mean Corpuscular Hgb 28.3 pg (27.0-32.0); Mean Corpuscular Volume 91.7 fL (80-94); Mean Platelet Vol. 10.4 fl (6.2-12.0); Platelet Count 191 K/mm3 (150-450); RBC Distribution Width CV 17.4 % (11.6-14.6); RBC Distribution Width SD 59.3 fl (35.1-43.9); Red Blood Count 3.61 M/mm3 (4.6-6.2); White Blood Count 7.2 K/mm3 (4.4-11.0)
[2019-08-24 13:18] LABS: Albumin, Serum 3.5 g/dL (3.2-5.0); BUN 45 mg/dL (7-18); BUN/Creat Ratio 15.7 RATIO (10-20); Calcium,Total 8.9 mg/dL (8.5-10.1); Chloride 108 mmol/L (98-107); Creatinine, Serum 2.86 mg/dL (0.70-1.30); EST Glomerular Filtration Rate 23 mL/min (>60); Est Glom Filt Rate - Afr Amer 28 mL/min (>60); Glucose 113 mg/dL (74-106); Potassium 3.5 mmol/L (3.5-5.1); Sodium Level 142 mmol/L (136-145)
[2019-08-24 13:20] LABS: Vitamin D,25 Hydroxy 69.7 ng/mL
[2019-08-24 13:23] LABS: PTHIN 113.6 pg/mL (18.4-80.1)
== END ==
PROVIDERS: PCP Internal Medicine; Visit Provider Internal Medicine Nephrology
DX: N18.4 Chronic kidney disease, stage 4 (severe) (principal); D50.9 Iron deficiency anemia, unspecified; N25.81 Secondary hyperparathyroidism of renal origin; E55.9 Vitamin D deficiency, unspecified
CPT/HCPCS: 36415; 80069; 82306; 83970; 85027

== ENCOUNTER → 2019-12-28 11:35 | Outpatient (CLI) | payer MEDICARE, MEDICAID, SELFPAY ==
[2019-05-09 06:29] VITALS: BMI 27.0
[2019-12-28 12:22] LABS: Hematocrit 29.6 % (40-54); Mean Corp Hgb Conc 30.4 g/dL (32-36); Mean Corpuscular Hgb 27.4 pg (27.0-32.0); Platelet Count 266 K/mm3 (150-450); RBC Distribution Width CV 17.5 % (11.6-14.6); RBC Distribution Width SD 58.3 fl (35.1-43.9); Red Blood Count 3.29 M/mm3 (4.6-6.2); White Blood Count 6.4 K/mm3 (4.4-11.0)
[2019-12-28 12:59] LABS: Albumin, Serum 3.1 g/dL (3.2-5.0); BUN 29 mg/dL (7-18); BUN/Creat Ratio 11.1 RATIO (10-20); Calcium,Total 9.1 mg/dL (8.5-10.1); Chloride 113 mmol/L (98-107); Creatinine, Serum 2.62 mg/dL (0.70-1.30); EST Glomerular Filtration Rate 26 mL/min (>60); Est Glom Filt Rate - Afr Amer 31 mL/min (>60); Glucose 96 mg/dL (74-106); Phosphorus 2.9 mg/dL (2.5-4.9); Potassium 3.9 mmol/L (3.5-5.1); Sodium Level 142 mmol/L (136-145)
[2019-12-28 13:03] LABS: PTHIN 24.3 pg/mL (18.4-80.1)
== END ==
PROVIDERS: PCP Internal Medicine; Visit Provider Internal Medicine Nephrology
DX: N18.4 Chronic kidney disease, stage 4 (severe) (principal); D50.9 Iron deficiency anemia, unspecified; N25.81 Secondary hyperparathyroidism of renal origin
CPT/HCPCS: 36415; 80069; 83970; 85027

== ENCOUNTER → 2020-05-02 11:11 | Outpatient (CLI) | payer MEDICARE, MEDICAID, SELFPAY ==
[2019-05-09 06:29] VITALS: BMI 27.0
[2020-05-02 12:34] LABS: Hematocrit 30.8 % (40-54); Hemoglobin 9.3 g/dL (13.0-16.5); Mean Corp Hgb Conc 30.2 g/dL (32-36); Mean Corpuscular Hgb 28.6 pg (27.0-32.0); Mean Corpuscular Volume 94.8 fL (80-94); Mean Platelet Vol. 9.7 fl (6.2-12.0); POSITIVE MORPHOLOGY YES; Platelet Count 204 K/mm3 (150-450); RBC Distribution Width CV 18.9 % (11.6-14.6); RBC Distribution Width SD 65.1 fl (35.1-43.9); Red Blood Count 3.25 M/mm3 (4.6-6.2); White Blood Count 6.8 K/mm3 (4.4-11.0)
[2020-05-02 12:39] LABS: Scan Indicated on CBC? Y/N YES- FLAGS NOTED
[2020-05-02 13:01] LABS: PTHIN 46.7 pg/mL (18.4-80.1)
[2020-05-02 13:17] LABS: Albumin, Serum 3.4 g/dL (3.2-5.0); BUN 46 mg/dL (7-18); BUN/Creat Ratio 13.9 RATIO (10-20); Calcium,Total 9.1 mg/dL (8.5-10.1); Chloride 107 mmol/L (98-107); EST Glomerular Filtration Rate 20 mL/min (>60); Est Glom Filt Rate - Afr Amer 24 mL/min (>60); Glucose 95 mg/dL (74-106); Phosphorus 3.3 mg/dL (2.5-4.9); Potassium 4.7 mmol/L (3.5-5.1); Sodium Level 139 mmol/L (136-145)
[2020-05-02 13:18] LABS: Differential Comment SCANNED
== END ==
PROVIDERS: PCP Internal Medicine; Visit Provider Internal Medicine Nephrology
DX: N18.4 Chronic kidney disease, stage 4 (severe) (principal); D50.9 Iron deficiency anemia, unspecified; N25.81 Secondary hyperparathyroidism of renal origin
CPT/HCPCS: 36415; 80069; 83970; 85027

== ENCOUNTER 2021-01-14 10:50 | Day surgery (SDC) | payer MEDICARE, MEDICAID, SELFPAY ==
[2021-01-14] VITALS (8 sets, daily range): BP systolic 126–153; BP diastolic 59–76; PULSE 69–80; RESP 16; TEMP 36.7–37.3; O2SAT 96–98; BMI 23.1
--- NOTE | 2021-01-14 07:34 | HP.PCM_ITS ---
History and Physical Date of Admission: 01/14/21 HISTORY AND PHYSICAL Wale VILLAGOMEZ 1945 ? ? CHIEF COMPLAINT: blood in stools ? HPI: The patient is a 75 year old male presents for consideration of colonoscopy for blood in stools. The patient denies constipation, denies abdominal pain, and denies changes in bowel habits. He notes dark colored stools, but states that he is taking iron supplementation. He had presented to [facility] last month with rectal bleeding, melena and hematemesis. He was then transferred to [facility]. He underwent EGD on 09/21/2020. He was recommended to undergo colonoscopy as an outpatient. The patient notes no colon cancer in immediate family. The patient has had a previous colonoscopy about 8 [place] (no records available). ? PAST MEDICAL HISTORY ? Alcohol abuse ? ? Anemia ? ? Aortic stenosis ? ? Aortic valve stenosis ? ? ASHD (arteriosclerotic heart disease) ? CAD (coronary artery disease) ? ? Cardiomyopathy (HCC) ? ? CHF (congestive heart failure) (HCC) ? ? Chronic combined systolic and diastolic CHF (congestive heart failure) (HCC) ? ? Cigarette smoker ? ? CKD (chronic kidney disease) stage 4, GFR 15-29 ml/min (HCC) ? ? Managed per ? COPD (chronic obstructive pulmonary disease) (HCC) ? ? Depression ? ? Gout ? ? Heart failure (HCC) ? ? Hypertension ? ? Pulmonary hypertension, moderate to severe ? ICD (implantable cardioverter-defibrillator) in place ? ? Iron deficiency anemia ? ? Kidney failure ? ? Nonrheumatic aortic (valve) stenosis ? ? Pacemaker ? ? PAD (peripheral artery disease) (HCC) ? ? Physical deconditioning ? ? Pulmonary emphysema (HCC) ? ? Renovascular hypertension ? ? Thyroid disease ? ? Hypothyroidism due to amiodarone ? Tricuspid valve regurgitation ? ? severe PAST SURGICAL HISTORY ? CREATE AV FISTULA Right 11/19/2018 ? Stage I RUE AV fistula creation ? PAST SURGICAL HISTORY OF ? ? ? open heart surgery ? PAST SURGICAL HISTORY OF ? ? ? lower bowel surgery ? PAST SURGICAL HISTORY OF ? ? ? Stent - left groin ? PAST SURGICAL HISTORY OF ? ? ? Defibulation placement ? PAST SURGICAL HISTORY OF ? ? ? ilac stent ? Current Outpatient Medications ? CYANOCOBALAMIN, VITAMIN B-12, ORAL Take 1 tablet by mouth once daily. ? darbepoetin missy in polysorbat (ARANESP) 100 mcg/0.5 mL Syringe Inject 100 mcg subcutaneously every 4 weeks. ? clopidogrel (PLAVIX) 75 mg tablet take 1 tablet by mouth once daily ? atorvastatin (LIPITOR) 40 mg tablet Take 1 tablet by mouth once daily. ? amLODIPine (NORVASC) 5 mg tablet Take 1 tablet by mouth once daily. ? carvedilol (COREG) 25 mg tablet Take 1 tablet by mouth twice daily with meals. ? levothyroxine (LEVOXYL) 75 mcg tablet Take 1 tablet by mouth once daily. Take on empty stomach. For thyroid. ? sertraline (ZOLOFT) 50 mg tablet Take 1 tablet by mouth once daily. ? isosorbide mononitrate ER (IMDUR) 60 mg 24 hr tablet Take 1.5 tablets by mouth once daily. ? hydrALAZINE (APRESOLINE) 100 mg tablet Take 1 tablet by mouth three times daily. ? ipratropium-albuterol (DUONEB) 0.5 mg-3 mg(2.5 mg base)/3 mL nebu Inhale 3 mL as instructed four times daily. ? montelukast (SINGULAIR) 10 mg tablet Take 1 tablet by mouth once daily. ? albuterol HFA (PROVENTIL HFA, VENTOLIN HFA) 90 mcg/actuation inhaler Inhale 2 Puffs as instructed every 4 hours as needed. ? olopatadine (PATANOL) 0.1 % ophthalmic solution Use 1 Drop in both eyes twice daily. ? fluticasone-vilanterol (BREO ELLIPTA) 100-25 mcg/dose inhaler Inhale 1 Inhalation as instructed once daily. ? furosemide (LASIX) 20 mg tablet Take 1 tablet by mouth once daily. ? albuterol (PROVENTIL) 2.5 mg /3 mL (0.083 %) nebulizer solution Use 3 mL via nebulizer every 6 hours as needed for Wheezing/Shortness of Breath. ? ferrous sulfate (IRON) 325 mg (65 mg iron) tablet Take 325 mg by mouth twice daily. ? cholecalciferol (VITAMIN D) 1,000 unit tab tablet Take 1,000 Units by mouth once daily. ? peg 3350-Electrolytes (GOLYTELY) 236-22.74-6.74 -5.86 gram suspension Take 4,000 mL by mouth one time only for 1 dose. Refer to printed prep instructions from your provider. ? pantoprazole DR (PROTONIX) 40 mg tablet Take 1 tablet by mouth once daily. ? gabapentin (NEURONTIN) 300 mg capsule Take 1 capsule by mouth twice daily for 180 days. ? diclofenac sodium (VOLTAREN) 1 % topical gel Apply 2 g to affected area four times daily. (Patient taking differently: Apply 2 g to affected area four times daily. Apply to stomach ? ALLERGIES: Asa [Aspirin] and Seasonal Allergies ? PERSONAL HISTORY: ? Smoking status: Former Smoker ? ? Packs/day: 0.50 ? ? Years: 50.00 ? ? Pack years: 25.00 ? ? Types: Cigarettes ? ? Quit date: 03/26/2018 ? ? Years since quittin.6 ? Smokeless tobacco: Never Used Vaping Use ? Vaping Use: Never used ? Alcohol use: No ? Drug use: Never ? FAMILY HISTORY ? Diabetes Father ? ? Kidney Disease Father ? ? Cancer Sister ? ? Heart Brother ? ? Diabetes Brother ? ? Cancer Brother ? ? ? REVIEW OF SYSTEMS: General: The patient denies fatigue, NOTES weight loss, denies weight gain, denies feeling hot, and NOTES feelings of cold. Eyes: The patient NOTES glaucoma, denies eye injury/surgery, WEARS glasses or contacts. Ear/Nose/Throat: The patient NOTES allergies, denies hayfever, denies ear infections, and denies bloody noses. Cardiovascular: The patient denies chest pain, NOTES heart disease, NOTES high blood pressure,denies cardiac stent, denies prior heart attack, NOTES irregular heart beat, NOTES high cholesterol, NOTES poor circulation, NOTES heart failure, other cardiac issues, denies claudication, denies cold feet, denies peripheral arterial stent. Respiratory: The patient denies tuberculosis, NOTES pneumonia, denies frequent cough, denies pulmonary embolism, NOTES shortness of breath, and denies coughing up blood. Gastrointestinal: The patient denies difficulty swallowing, NOTES acid reflux, denies ulcers, denies vomiting, denies jaundice/hepatitis, denies gallbladder problems, NOTES black or tarry stools, denies hemorrhoids, NOTES bleeding from rectum, denies diverticulitis, denies constipation, denies diarrhea, denies loss of stool control, and denies hernias. Kidney/Bladder: The patient denies kidney stones, denies urine infections, and denies bloody urine. NOTES kidney failure Skin: The patient denies a history of skin cancer, denies bleeding/changing moles, and denies a history of skin rash. Neurologic: The patient denies a history of epilepsy/convulsions, denies headaches, denies head/spinal injuries, and denies stroke/TIA. Psychiatric: The patient NOTES psychiatric medications, NOTES depression, and denies voices, denies substance abuse. Endocrine: The patient NOTES thyroid disorders, denies diabetes, and denies hormonal problems. Hematologic: The patient denies a history of bruising, denies bleeding, and NOTES anemia, denies blood clots. Infections: The patient denies a history of measles and mumps, denies rheumatic fever, and denies sexually transmitted diseases. Musculoskeletal: The patient NOTES back pain/injury, NOTES back problems, denies sciatica, NOTES knee/foot trouble, NOTES arthritis, or NOTES gout. Last Colonoscopy: Patient reports he has had procedure in past, date unknown. No on [facility] system or patient chart. Carlos Higginbotham RN ? PHYSICAL EXAMINATION: General: The patient is 75 year old male, well nourished, well hydrated in no acute distress. The patient is oriented to time, place, and person. VITALS: Blood pressure 162/73, pulse 85, temperature 37.2 ?C (99 ?F), temperature source Temporal, resp. rate 17, weight 67.4 kg (148 lb 9.6 oz), SpO2 96 %. Body mass index is 23.27 kg/m?. Head ? Normocephalic. EOM intact with sclera clear and no icterus noted. Wearing glasses. Neck - supple with no jugular venous distention noted. Trachea is midline. Lungs ? clear to auscultation. Normal breath sounds. No rales/rhonchi/wheezing noted. No labored breathing noted, such as retractions. No cough heard. Heart ? normal S1 and S2 auscultated. No rubs/clicks/murmurs noted. Regular rate. Abdomen ? soft and benign. Normal bowel sounds. Extremities ? no calf tenderness noted. No pitting edema noted. Skin ? normal skin integrity. Neurological ? gait normal, no focal deficits noted. Psych ? calm and appropriate ? IMPRESSION: consideration for colonoscopy for GIB PLAN: I have discussed the above with the patient. I have offered colonoscopy, possible biopsies I have explained the procedure to the patient. I have counseled the patient as to the risks of the procedure, including but not limited to: infection, bleeding, perforation of the GI tract, injury to any intraabdominal organs such as the liver/spleen, inability to complete the procedure, complications of anesthesia, etc. ? the patient understands. The patient wishes to proceed. I have answered all questions to the patient?s satisfaction and the patient has no further questions. Diagnoses: (K92.1) Hematochezia (primary encounter diagnosis) ? Shelly Crow MD
[2021-01-14] MEDS: Lactated Ringers 1,000 ML 100 ML IV (11:46)
--- NOTE | 2021-01-14 12:00 | COLBX_PTH ---
PATIENT: ROBERT FRASER Sr. LOC: EN U#:[id number] AGE/SX: 75/M ROOM: RE01/14/[address]: Dr. Shelly Crow MD : 1945 BED: DIS: 01/14/2021 SPEC #: [id number] RECD: 01/14/21 13:09 STATUS: ASHLI REElyssa #: [id number] ELVIS: 01/14/21 12:[address]: Shelly Crow DEPT: SURGICAL PATHOLOGY RECD BY: Dania Good ENTERED: 01/14/21 13:45 SP TYPE: COLON BX OTHR DR: Dr. Jamia Comer MD Tissues: A - Cecum, NOS B - Rectum, NOS Procedures: Surgery Specimen Level IV HEADER OPERATION: Colonoscopy (MAC) PRE-OP DIAGNOSIS: Hematochezia TISSUE SUBMITTED: A ? Cecum polyp biopsy, B ? Rectal polyp biopsy MICROSCOPIC DIAGNOSIS A. Cecum polyp, biopsy: Fragments of tubular adenoma. B. Rectal polyp, biopsy: Fragments of tubular adenoma. SJ:viridiana 01/15/2021 MICROSCOPIC DESCRIPTION Slides are reviewed. GROSS DESCRIPTION A - Received in fixative is one container labeled with the patient's name and designated cecal polyp biopsy. The specimen consists of multiple irregular fragments of light chaudhary soft tissue that in aggregate measure 0.7 x 0.6 x 0.1 cm. The specimen is totally submitted in one cassette. B - Received in fixative is one container labeled with the patient's name and designated rectal polyp biopsy. The specimen consists of multiple irregular fragments of light chaudhary soft tissue that in aggregate measure 2 x 0.6 x 0.1 cm. The specimen is totally submitted in one cassette. / AM:viridiana 01/14/21 TC:1 CPT: 93855 x2
--- NOTE | 2021-01-14 12:41 | OP.COLON_ITS ---
Patient Name: Wale Fernandes Procedure Date: 01/14/2021 11:48 AM Date of : 1945 Age: 75 Procedure: Colonoscopy Indications: Rectal bleeding Providers: Shelly Crow MD Medicines: See the Anesthesia note for documentation of the administered medications Patient Profile: Refer to note in patient chart for documentation of history and physical. Last Colonoscopy: several years ago. Complications: No immediate complications. Procedure: Pre-Anesthesia Assessment: - see anesthesia note After I obtained informed consent, the scope was passed under direct vision. Throughout the procedure, the patient's blood pressure, pulse, and oxygen saturations were monitored continuously. The Colonoscope was introduced through the anus and advanced to the cecum, identified by the appendiceal orifice, IC valve and transillumination. The colonoscopy was performed without difficulty. The patient tolerated the procedure well. The quality of the bowel preparation was poor, there was still retained fecal material. Therefore lavage and aspiration was done to clear the fecal material. This took some time. The charlton were cleared adequately. Scope In: 12:12:34 PM Scope Withdrawal Time 0 hours 15 minutes 11 seconds Scope Out: 12:35:27 PM Total Procedure Duration Time 0 hours 22 minutes 53 seconds Findings: The perianal and digital rectal examinations were normal. Non-bleeding external and internal hemorrhoids were found. Many small and large-mouthed diverticula were found in the entire colon. A 4 to 10 mm polyp was found in the cecum. The polyp was sessile. The polyp was removed with a hot snare. Resection and retrieval were complete. Verification of patient identification for the specimen was done by the nurse. Estimated blood loss was minimal. A 3 to 7 mm polyp was found in the rectum. The polyp was sessile. The polyp was removed with a hot snare. Resection and retrieval were complete. Verification of patient identification for the specimen was done by the nurse. Estimated blood loss was minimal. Impression: - Non-bleeding external and internal hemorrhoids - large. - Diverticulosis in the entire examined colon. - One 4 to 10 mm polyp in the cecum, removed with a hot snare. Resected and retrieved. - One 3 to 7 mm polyp in the rectum, removed with a hot snare. Resected and retrieved. Recommendation: - Repeat colonoscopy date to be determined after pending pathology results are reviewed for surveillance based on pathology results. - Follow up visit via telemedicine with Cindy Emma, PA-C to discuss results. Call to set this up, thank you - Continue present medications. Procedure Code(s): --- Professional --- 89997, Colonoscopy, flexible; with removal of tumor(s), polyp(s), or other lesion(s) by snare technique Diagnosis Code(s): --- Professional --- K64.8, Other hemorrhoids D12.0, Benign neoplasm of cecum K62.1, Rectal polyp K62.5, Hemorrhage of anus and rectum K57.30, Diverticulosis of large intestine without perforation or abscess without bleeding CPT copyright 2017 [employer]. All rights reserved. The codes documented in this report are preliminary and upon product architect review may be revised to meet current compliance requirements. MD Shelly Baltazar MD 01/14/2021 12:41:15 PM This report has been signed electronically. Number of Addenda: 0 Note Initiated On: 01/14/2021 11:48 AM
--- NOTE | 2021-01-14 12:41 | OP.CCLET_ITS ---
01/14/2021 Jamia Comer [address] [place] [address] Re : Colonoscopy procedure for Wale Dom Dear Dr. Comer This procedure was performed on Thursday, January 14, 2021. My impressions and recommendations are as follows: Impressions : - Non-bleeding external and internal hemorrhoids - large. - Diverticulosis in the entire examined colon. - One 4 to 10 mm polyp in the cecum, removed with a hot snare. Resected and retrieved. - One 3 to 7 mm polyp in the rectum, removed with a hot snare. Resected and retrieved. Recommendations : - Repeat colonoscopy date to be determined after pending pathology results are reviewed for surveillance based on pathology results. - Follow up visit via telemedicine with Cindy Carter PA-C to discuss results. Call to set this up, thank you - Continue present medications. My findings are described in the full procedure note, which is enclosed. If I can be of further assistance, please feel free to contact me at Doctor phone number(s): , Work: . Sincerely, MD Shelly Baltazar MD 01/14/2021 12:41:15 PM This report has been signed electronically.
== END 2021-01-14 13:45 | disposition home or self-care (01) ==
LOC: EN 10:52 → AC 10:54
PROVIDERS: PCP Internal Medicine; Referring Provider Internal Medicine; Visit Provider Surgery
PROC: 0DJD8ZZ Inspection of Lower Intestinal Tract, Via Natural or Artificial Opening Endoscopic (ICD-10-PCS; CPT 45378; principal; 2021-01-14 11:55)
DX: D12.0 Benign neoplasm of cecum (principal); D12.8 Benign neoplasm of rectum; K57.30 Diverticulosis of large intestine without perforation or abscess without bleeding; K64.4 Residual hemorrhoidal skin tags; K64.8 Other hemorrhoids; F32.A Depression, unspecified; D50.9 Iron deficiency anemia, unspecified; I13.0 Hypertensive heart and chronic kidney disease with heart failure and stage 1 through stage 4 chronic kidney disease, or unspecified chronic kidney disease; N18.4 Chronic kidney disease, stage 4 (severe); I50.42 Chronic combined systolic (congestive) and diastolic (congestive) heart failure; I25.10 Atherosclerotic heart disease of native coronary artery without angina pectoris; I27.20 Pulmonary hypertension, unspecified; I42.9 Cardiomyopathy, unspecified; I73.9 Peripheral vascular disease, unspecified; E78.00 Pure hypercholesterolemia, unspecified; J44.9 Chronic obstructive pulmonary disease, unspecified; M10.9 Gout, unspecified; K21.9 Gastro-esophageal reflux disease without esophagitis; I48.91 Unspecified atrial fibrillation; M19.90 Unspecified osteoarthritis, unspecified site; E03.9 Hypothyroidism, unspecified; I35.0 Nonrheumatic aortic (valve) stenosis; Z95.1 Presence of aortocoronary bypass graft; Z95.810 Presence of automatic (implantable) cardiac defibrillator; Z79.02 Long term (current) use of antithrombotics/antiplatelets; Z79.899 Other long term (current) drug therapy; Z87.891 Personal history of nicotine dependence
CPT/HCPCS: 45385; 87426; 88305; J7120; J2405

== ENCOUNTER → 2021-02-12 10:16 | Outpatient (CLI) | payer MEDICARE, MEDICAID, SELFPAY ==
[2021-02-12 12:37] LABS: Hematocrit 35.5 % (40-54); Hemoglobin 11.2 g/dL (13.0-16.5); Mean Corp Hgb Conc 31.5 g/dL (32-36); Mean Corpuscular Hgb 29.2 pg (27.0-32.0); Mean Corpuscular Volume 92.7 fL (80-94); Platelet Count 198 K/mm3 (150-450); RBC Distribution Width SD 51.4 fl (35.1-43.9); Red Blood Count 3.83 M/mm3 (4.6-6.2); White Blood Count 6.9 K/mm3 (4.4-11.0)
[2021-02-12 12:47] LABS: Albumin, Serum 3.4 g/dL (3.2-5.0); BUN 36 mg/dL (7-18); BUN/Creat Ratio 11.8 RATIO (10-20); Calcium,Total 9.2 mg/dL (8.5-10.1); Chloride 103 mmol/L (98-107); Creatinine, Serum 3.06 mg/dL (0.70-1.30); EST Glomerular Filtration Rate 21 mL/min (>60); Est Glom Filt Rate - Afr Amer 26 mL/min (>60); Glucose 66 mg/dL (74-106); Potassium 3.7 mmol/L (3.5-5.1); Sodium Level 139 mmol/L (136-145); Vitamin D,25 Hydroxy 51.9 ng/mL
[2021-02-12 13:04] LABS: PTHIN 117.9 pg/mL (18.4-80.1)
== END ==
PROVIDERS: PCP Internal Medicine; Visit Provider Internal Medicine Nephrology
DX: N18.4 Chronic kidney disease, stage 4 (severe) (principal); E55.9 Vitamin D deficiency, unspecified
CPT/HCPCS: 36415; 80069; 82306; 83970; 85027

== ENCOUNTER → 2021-02-14 | Outpatient (CLI) | payer MEDICARE, MEDICAID, SELFPAY ==
[2021-02-14 14:12] LABS: Creat.Clear Total Volume 1050 mL; Creatinine Clearance 26 ml/min (100-200); Creatinine Serum Creat 3.1 mg/dL (0.8-1.3); EST Glomerular Filtration Rate 21 mL/min (>60); Est Glom Filt Rate - Afr Amer 26 mL/min (>60)
== END | disposition home or self-care (01) ==
LOC: LABSPEC 13:40
PROVIDERS: PCP Internal Medicine; Visit Provider Internal Medicine Nephrology
DX: N18.4 Chronic kidney disease, stage 4 (severe) (principal)
CPT/HCPCS: 81050; 82575

== ENCOUNTER 2021-05-21 13:28 | Outpatient (CLI) | payer MEDICARE, MEDICAID, SELFPAY ==
[2021-05-21 16:32] LABS: Albumin, Serum 3.6 g/dL (3.2-5.0); BUN 54 mg/dL (7-18); BUN/Creat Ratio 12.7 RATIO (10-20); Chloride 103 mmol/L (98-107); Creatinine, Serum 4.25 mg/dL (0.70-1.30); EST Glomerular Filtration Rate 15 mL/min (>60); Est Glom Filt Rate - Afr Amer 18 mL/min (>60); Glucose 115 mg/dL (74-106); Phosphorus 3.7 mg/dL (2.5-4.9); Potassium 3.9 mmol/L (3.5-5.1); Sodium Level 139 mmol/L (136-145)
[2021-05-22 08:08] LABS: PTHIN 95.2 pg/mL (18.4-80.1)
== END 2021-05-21 23:59 | disposition home or self-care (01) ==
LOC: POLAB3 13:28
PROVIDERS: PCP Internal Medicine; Visit Provider Internal Medicine Nephrology
DX: N18.4 Chronic kidney disease, stage 4 (severe) (principal); N25.81 Secondary hyperparathyroidism of renal origin; E55.9 Vitamin D deficiency, unspecified
CPT/HCPCS: 36415; 80069; 83970

== ENCOUNTER 2021-06-14 09:13 | Outpatient (CLI) | payer MEDICARE, MEDICAID, SELFPAY ==
[2021-06-14 10:23] LABS: PTHIN 109.1 pg/mL (18.4-80.1)
[2021-06-14 10:26] LABS: 24 Hour Urine Protein 1366.7 mg/24HR (<150 MG/24HR); 24HR. UA Prot. Total Volume 1975 mL; Creat.Clear Total Volume 1975 mL; Creatinine Clearance 34 ml/min (100-200); Creatinine Serum Creat 3.6 mg/dL (0.8-1.3); Creatinine Urine 88.3 mg/dL (NO RANGE EST.); EST Glomerular Filtration Rate 18 mL/min (>60); Est Glom Filt Rate - Afr Amer 22 mL/min (>60); Urine Protein (24 Hour) 69.2 mg/dL (<11.9)
[2021-06-14 10:27] LABS: Albumin, Serum 3.5 g/dL (3.2-5.0); BUN 53 mg/dL (7-18); BUN/Creat Ratio 14.9 RATIO (10-20); Calcium,Total 8.8 mg/dL (8.5-10.1); Chloride 108 mmol/L (98-107); Creatinine, Serum 3.56 mg/dL (0.70-1.30); EST Glomerular Filtration Rate 18 mL/min (>60); Est Glom Filt Rate - Afr Amer 22 mL/min (>60); Glucose 119 mg/dL (74-106); Phosphorus 3.1 mg/dL (2.5-4.9); Sodium Level 140 mmol/L (136-145)
== END 2021-06-14 23:59 | disposition home or self-care (01) ==
LOC: POLAB3 09:14
PROVIDERS: PCP Internal Medicine; Visit Provider Internal Medicine Nephrology
DX: N25.81 Secondary hyperparathyroidism of renal origin (principal); N18.4 Chronic kidney disease, stage 4 (severe)
CPT/HCPCS: 36415; 80069; 81050; 82575; 83970; 84156

== ENCOUNTER → 2021-09-26 | Outpatient (CLI) | payer MEDICARE, MEDICAID, SELFPAY ==
[2021-09-26 15:43] LABS: PTHIN 171.5 pg/mL (18.4-80.1)
[2021-09-26 15:49] LABS: Albumin, Serum 3.4 g/dL (3.2-5.0); BUN 57 mg/dL (7-18); BUN/Creat Ratio 15.6 RATIO (10-20); Calcium,Total 8.7 mg/dL (8.5-10.1); Chloride 112 mmol/L (98-107); Creatinine, Serum 3.66 mg/dL (0.70-1.30); EST Glomerular Filtration Rate 17 mL/min (>60); Est Glom Filt Rate - Afr Amer 21 mL/min (>60); Glucose 102 mg/dL (74-106); Phosphorus 3.2 mg/dL (2.5-4.9); Potassium 4.1 mmol/L (3.5-5.1); Sodium Level 142 mmol/L (136-145)
== END | disposition home or self-care (01) ==
LOC: POLAB3 13:13
PROVIDERS: PCP Internal Medicine; Visit Provider Internal Medicine Nephrology
DX: N18.4 Chronic kidney disease, stage 4 (severe) (principal); N25.81 Secondary hyperparathyroidism of renal origin
CPT/HCPCS: 36415; 80069; 83970

== ENCOUNTER 2022-02-11 11:26 | Outpatient (CLI) | payer MEDICARE, MEDICAID, SELFPAY ==
[2022-02-11 12:53] LABS: Albumin, Serum 3.2 g/dL (3.2-5.0); BUN 57 mg/dL (7-18); BUN/Creat Ratio 15.1 RATIO (10-20); Calcium,Total 8.9 mg/dL (8.5-10.1); Chloride 114 mmol/L (98-107); Creatinine, Serum 3.77 mg/dL (0.70-1.30); EST Glomerular Filtration Rate 17 mL/min (>60); Est Glom Filt Rate - Afr Amer 20 mL/min (>60); Glucose 112 mg/dL (74-106); Phosphorus 3.2 mg/dL (2.5-4.9); Potassium 4.2 mmol/L (3.5-5.1); Sodium Level 145 mmol/L (136-145)
== END 2022-02-11 23:59 | disposition home or self-care (01) ==
LOC: POLAB3 11:26
PROVIDERS: PCP Internal Medicine; Visit Provider Internal Medicine Nephrology
DX: N18.4 Chronic kidney disease, stage 4 (severe) (principal); N25.81 Secondary hyperparathyroidism of renal origin
CPT/HCPCS: 36415; 80069; 83970

== ENCOUNTER → 2022-06-04 | Outpatient (CLI) | payer MEDICARE, MEDICAID, SELFPAY ==
[2022-06-04 17:59] LABS: Albumin, Serum 3.6 g/dL (3.2-5.0); BUN 67 mg/dL (7-18); BUN/Creat Ratio 17.9 RATIO (10-20); Calcium,Total 8.5 mg/dL (8.5-10.1); Chloride 113 mmol/L (98-107); Creatinine, Serum 3.74 mg/dL (0.70-1.30); EST Glomerular Filtration Rate 17 mL/min (>60); Est Glom Filt Rate - Afr Amer 20 mL/min (>60); Glucose 89 mg/dL (74-106); Phosphorus 4.9 mg/dL (2.5-4.9); Potassium 4.3 mmol/L (3.5-5.1); Sodium Level 143 mmol/L (136-145)
[2022-06-05 08:19] LABS: PTHIN 202.3 pg/mL (18.4-80.1)
== END | disposition home or self-care (01) ==
PROVIDERS: PCP Internal Medicine; Visit Provider Internal Medicine Nephrology
DX: N25.81 Secondary hyperparathyroidism of renal origin (principal); N18.4 Chronic kidney disease, stage 4 (severe)
CPT/HCPCS: 36415; 80069; 83970

== ENCOUNTER → 2022-10-28 | Outpatient (CLI) | payer MEDICARE, MEDICAID, SELFPAY ==
[2022-10-28 13:15] LABS: Albumin, Serum 3.3 g/dL (3.2-5.0); BUN 69 mg/dL (7-18); Calcium,Total 8.5 mg/dL (8.5-10.1); Chloride 114 mmol/L (98-107); Creatinine, Serum 3.64 mg/dL (0.70-1.30); EST Glomerular Filtration Rate 17 mL/min (>60); Est Glom Filt Rate - Afr Amer 21 mL/min (>60); Glucose 103 mg/dL (74-106); Phosphorus 4.1 mg/dL (2.5-4.9); Sodium Level 141 mmol/L (136-145)
[2022-10-28 13:38] LABS: PTHIN 143.6 pg/mL (18.4-80.1)
== END | disposition home or self-care (01) ==
LOC: POLAB3 11:29
PROVIDERS: PCP Internal Medicine; Visit Provider Internal Medicine Nephrology
DX: N18.4 Chronic kidney disease, stage 4 (severe) (principal); N25.81 Secondary hyperparathyroidism of renal origin; E55.9 Vitamin D deficiency, unspecified
CPT/HCPCS: 36415; 80069; 82306; 83970

== ENCOUNTER 2024-04-05 10:43 | Emergency (ER) | payer MEDICARE, MEDICAID, SELFPAY ==
[2024-04-05] VITALS (15 sets, daily range): BP systolic 75–139; BP diastolic 48–82; PULSE 61–87; RESP 12–27; TEMP 36.6–37.5; O2SAT 93–98; BMI 21.6
--- NOTE | 2024-04-05 11:08 | EDS_ITS ---
HPI HPI - Fall History of Present Illness Chief Complaint: Fall Narrative Narrative: 39-year-old male past medical history of end-stage renal disease, gets dialysis every Thursday and Thursday, last completed dialysis yesterday. He was at his physician's office at the [facility] when he states the door hit him and he fell onto his left hip. He denies hitting his head or loss of consciousness, no neck pain, however he now has pain with movement of his left lower extremity. He was unable to ambulate. He arrives via EMS with left hip pain that is worse with movement. Denies other injury. [facility] Medical History Wears dentures Depression Thyroid disease Arthritis History of renal disease Anemia High cholesterol Back pain Dietary restriction On home oxygen therapy Gastric reflux CPAP (continuous positive airway pressure) dependence Former smoker COPD (chronic obstructive pulmonary disease) Shortness of breath on exertion Leg cramps History of edema History of echocardiogram History of stress test Hypertension History of CHF (congestive heart failure) Cardiology follow-up encounter Hx of fracture of ankle Aneurysm of right common iliac artery CAD (coronary artery disease) Hypothyroid Chronic renal failure, stage 4 (severe) Anemia COPD (chronic obstructive pulmonary disease) Acid reflux Hypertension Afib Gout Arthritis Home Medications ?Medication ?Instructions ?Recorded ?Last Taken ?Type amlodipine 10 mg tablet 10 mg PO DAILY htn 10/22/18 04/04/24 History atorvastatin 40 mg tablet 40 mg PO QHS cholesterol 10/22/18 04/04/24 History cholecalciferol (vitamin D3) 25 1,000 unit PO DAILY vitamin 10/22/18 04/04/24 History mcg (1,000 unit) capsule clopidogrel 75 mg tablet (Plavix) 75 mg PO DAILY blood thinner 10/22/18 04/04/24 History isosorbide mononitrate 60 mg 60 mg PO DAILY htn 10/22/18 04/04/24 History tablet,extended release 24 hr albuterol sulfate 2.5 mg/3 mL 2.5 mg inhalation Q6H PRN Wheezing 11/12/18 12/29/18 History (0.083 %) solution for nebulization albuterol sulfate 90 mcg/actuation 1 - 2 puff inhalation Q4H PRN copd 11/12/18 12/29/18 History aerosol inhaler fluticasone furoate 100 1 ea IH DAILY COPD 05/02/19 04/04/24 History mcg-vilanterol 25 mcg/dose inhalation powder fluticasone propionate 50 1 spray NASAL BID seasonal 05/02/19 Unknown History mcg/actuation nasal allergies spray,suspension carvedilol 12.5 mg tablet 12.5 mg PO BID 04/05/24 04/05/24 History diclofenac sodium 1 % topical gel 2 ea topical 4X/DAY 04/05/24 04/04/24 History levothyroxine 25 mcg tablet 25 mcg PO DAILY 04/05/24 04/04/24 History olopatadine 0.1 % eye drops 1 drp EACH EYE BID 04/05/24 04/04/24 History sertraline 50 mg tablet 50 mg PO DAILY 04/05/24 04/04/24 History tamsulosin 0.4 mg capsule 0.4 mg PO QHS 04/05/24 04/04/24 History Allergy/AdvReac Type Severity Reaction Status Date / Time aspirin (ASA) Allergy Other Verified 04/05/24 10:52 Family History Father Diabetes Kidney disease Brother Colon cancer Cancer Sister Breast cancer Surgical History History of cardiac catheterization H/O aortic valve replacement AICD (automatic cardioverter/defibrillator) present History of arteriovenostomy for renal dialysis hx of APLL Hx of CABG History of broken leg History of open heart surgery Social History Smoking Status: Former smoker alcohol intake: former substance use type: does not use caffeine: Yes what type of physical activity do you participate in: none frequency: does not exercise ROS ROS ED ROS Narrative Review of systems positive for left hip pain worse with movement. No headache, no neck pain, no hitting of head or loss of consciousness. EXAM Physical Exam Narrative Exam Narrative: GCS 15. ABCs intact. Cardiovascular examination reveals a regular rate and rhythm. Lungs clear to auscultation bilaterally. Abdomen is soft and nontender without guarding or rebound. Neurological examination nonfocal and nonlateralizing. Musculoskeletal examination reveals pelvis to be stable with left lower extremity/left hip pain diffusely. Palpable dorsalis pedis pulse. Positive pain with logrolling of left femur. Decreased range of motion secondary to left hip pain. Const Vital Signs: 04/05/24 10:44 04/05/24 11:43 04/05/24 12:00 Temperature 97.9 F Temperature Source Oral Pulse Rate 62 77 61 Respiratory Rate 18 18 18 Blood Pressure 136/67 H 139/69 H 133/56 H Blood Pressure Mean 90 92 81 Pulse Ox 94 98 98 Oxygen Delivery Method Room Air Room Air Room Air Oxygen Flow Rate (L/min) 04/05/24 12:58 04/05/24 14:00 04/05/24 15:00 Temperature Temperature Source Pulse Rate 65 75 87 Respiratory Rate 18 16 14 Blood Pressure 133/70 H 127/65 H 131/82 H Blood Pressure Mean 91 85 98 Pulse Ox 98 93 97 Oxygen Delivery Method Room Air Room Air Nasal Cannula Oxygen Flow Rate (L/min) 2 04/05/24 15:37 Temperature 99 F Temperature Source Pulse Rate 87 Respiratory Rate 14 Blood Pressure 131/82 H Blood Pressure Mean 98 Pulse Ox 97 Oxygen Delivery Method Oxygen Flow Rate (L/min) MDM MDM MDM Narrative Medical decision making narrative: Differential diagnosis includes but not limited to fall with left hip contusion versus pubic ramus fracture versus proximal femur fracture. I have low suspicion for acetabular fracture open book pelvic fracture. Patient administered morphine for analgesia and x-rays obtained of the left hip and pelvis and 3 views and interpreted by myself independently. On x-ray there is questionable evidence of an acute fracture noted at the femoral neck. This is on my independent interpretation. I reviewed the radiology report which comments on no evidence of acute fracture of the hip. However, attempt was made to ambulate the patient and he is unable to do so even with a walker. Hence, a CT of the hip was obtained and I reviewed the radiology report and while there is evidence of a greater trochanteric fracture, there is also a fracture of the hip at the femoral neck. Screening laboratories had been obtained and reviewed. He has normal white count of 6.3 with hemoglobin stable at 11.6 when compared to previous labs. Hematocrit 37.5 and platelet count 174. As he is a dialysis patient, I reviewed his CMP which shows a BUN of 33 and a creatinine of 4.3. Sodium normal at 138 and potassium 4.5. AST elevated at 38 which I think is nonspecific. He was given additional dose of morphine. I discussed patient with Dr. Cage with orthopedics. He states that the patient will require surgery after review of the CT scan and plan will be for tomorrow afternoon after hospitalist admission. I discussed the patient with Dr. Nata Ray for admission to the medical surgical floor. Patient is in stable condition. I did order an EKG as screening as well. EKG was obtained and interpreted by myself independently as normal sinus rhythm at 89 bpm without ectopy or acute ST changes. No STEMI. I discussed the patient with Dr. Ray. She had discussed patient with anesthesia and given the patient's complex medical history and comorbidities, it was thought that he would be better served at a tertiary care center. He has been seen at [facility] In the past. Dr. Cage is aware of this need for transfer. I discussed patient with the [facility] Transfer line. He has been accepted by orthopedics as an ED to ED transfer. I also discussed the patient with Dr. Pittman with emergency medicine who is also aware of the transfer and accepts him. I also informed his of the change in plans. Disposition is transferred in stable condition. History & Record Review Discussion w/independent historian: Patient and Family Additional record(s) reviewed:: Prior labs Lab Data Attestation: I reviewed the patient's lab results. Labs: Laboratory Results - last 24 hr 04/05/24 04/05/24 10:54 14:27 WBC 6.3 RBC 3.88 L Hgb 11.6 L Hct 37.5 L MCV 96.6 H MCH 29.9 MCHC 30.9 L RDW Std Deviation 59.3 H RDW Coeff of Erin 16.9 H Plt Count 174 MPV 10.6 Immature Gran % (Auto) 1.400 H Neut % (Auto) 63.6 Lymph % (Auto) 20.5 [place] % (Auto) 8.4 Eos % (Auto) 5.6 H Baso % (Auto) 0.5 Absolute Neuts (auto) 4.0 Absolute Lymphs (auto) 1.29 Nucleated RBC % 0 Sodium 138 Potassium 4.5 Chloride 98 Carbon Dioxide 32.0 Anion Gap 8 BUN 33 H Creatinine 4.39 H Estim Creat Clear Calc 11.74 Est GFR (MDRD) Af Amer 17 L Est GFR (MDRD) Non-Af 14 L BUN/Creatinine Ratio 7.5 L Glucose 99 Calcium 9.2 Total Bilirubin 0.80 AST 38 H ALT 25 Alkaline Phosphatase 113 Total Protein 9.1 H Albumin 3.5 Globulin 5.6 H Albumin/Globulin Ratio 0.6 L Radiography Chest X-Ray - ED: Read by ED Physician X-Ray: Right Hip, Read by ED Physician and Read by Radiologist Diagnostic Testing: Clinical Impression(s) from Imaging Studies Hip/Pelvis X-Ray 04/05/24 11:20 IMPRESSION: Mild degenerative arthrosis of the hip joints bilaterally. No demonstrated acute fracture. Electronically Signed: Justin Trevino MD at 11:41 EST , Lower Extremity CT 04/05/24 14:20 IMPRESSION: Acute nondisplaced fracture involving the left femoral neck.. There is also lucency suggesting nondisplaced fracture involving the greater trochanter. Electronically Signed: Jey Ross MD at 14:51 EST , Management Discussion w/another healthcare provider: Hospitalist and Plant Engineer (Orthopedics) Discharge Plan Dx/Rx/DC Orders Clinical Impression: Fall, Fracture of greater trochanter, Closed hip fracture Disposition Disposition: Acute Care [facility]
[2024-04-05] MEDS: Morphine 4 MG/ML Syringe IV ×2 (11:10→15:22)
--- NOTE | 2024-04-05 11:20 | RAD_ITS ---
STUDY: X-RAY - PELVIS AND LEFT HIP REASON FOR EXAM: Male, 79 years old. Trauma. TECHNIQUE: 4 views of the pelvis and left hip. COMPARISON: None. FINDINGS: There is a non-specific bowel gas pattern. Normal visualized soft tissue structures. There are atherosclerotic vascular calcifications. There are vascular stents in the abdominal aorta and iliac arteries. Normal bilateral iliac wings, sacroiliac joints and visualized sacrum. Normal bilateral superior and inferior pubic rami. Normal pubic symphysis. Normal bilateral ischial tuberosities. There is mild degenerative arthrosis of the hip joints bilaterally. There is no demonstrated acute fracture. RAD/HIP, UNI W/ Pelvis 2-3 Views IMPRESSION: Mild degenerative arthrosis of the hip joints bilaterally. No demonstrated acute fracture. Electronically Signed: Justin Trevino MD at 11:41 EST ,
--- NOTE | 2024-04-05 12:46 | CM.ED ---
Social Work Patient stated that he does have a HPOA completed but no Living Will completed. Patients stated she will bring in copy when she is able. No further needs identified. Sydnee Ho, GOOD HUMOR VENDOR, [employer]ER[employer] TECHNICIAN
[2024-04-05 14:17] LABS: Absolute Lymphocyte Count 1.29 X10^3/uL (0.83-4.51); Basophil# 0.03 X10^3/uL; Basophil% 0.5 % (0-1); Eosinophil# 0.35 X10^3/uL; Eosinophils% 5.6 % (0-5); Hematocrit 37.5 % (40-54); Hemoglobin 11.6 g/dL (13.0-16.5); Lymphocyte # 1.29 X10^3/ul (0.83-4.51); Lymphocyte % 20.5 % (19-41); Mean Corp Hgb Conc 30.9 g/dL (32-36); Mean Corpuscular Hgb 29.9 pg (27.0-32.0); Mean Corpuscular Volume 96.6 fL (80-94); Mean Platelet Vol. 10.6 fl (6.2-12.0); Monocyte# 0.53 X10^3/uL; Monocyte% 8.4 % (0-10); NRBC Flagged by Analyzer 0 % (0-5); Neutrophil # 3.99 X10^3/uL (2.7-7.7); Neutrophil % 63.6 % (47-70); Platelet Count 174 K/mm3 (150-450); RBC Distribution Width CV 16.9 % (11.6-14.6); RBC Distribution Width SD 59.3 fl (35.1-43.9); Red Blood Count 3.88 M/mm3 (4.6-6.2); White Blood Count 6.3 K/mm3 (4.4-11.0)
--- NOTE | 2024-04-05 14:20 | CT_ITS ---
EXAM: CT LEFT LOWER EXTREMITY WITHOUT INTRAVENOUS CONTRAST CLINICAL INDICATION: trauma TECHNIQUE: Helically acquired images were obtained of the left lower extremity without intravenous contrast. 2-D reformats were performed by the technologist. CTDIvol = ( 12.06 ) mGy, DLP = ( 301.05 ) mGycm This CT exam was performed using one or more of the following dose reduction techniques: automated exposure control, adjustment of the mA and/or kV according to patient size, and/or use of iterative reconstruction technique. COMPARISON: April 05, 2024 FINDINGS: Bones and joints: Acute nondisplaced fracture involving the left femoral neck.. There is also lucency suggesting nondisplaced fracture involving the greater trochanter. Normal alignment at the left hip joint. Moderate degenerative joint space narrowing at the left hip joint. Soft tissues: Atherosclerotic calcifications of the iliac and femoral arteries visualized. No soft tissue hemorrhage or hematoma. CT/Extremity Lower without Contra IMPRESSION: Acute nondisplaced fracture involving the left femoral neck.. There is also lucency suggesting nondisplaced fracture involving the greater trochanter. Electronically Signed: Jey Ross MD at 14:51 EST ,
[2024-04-05 14:55] LABS: ALB/GLOB Ratio 0.6 RATIO (0.9-2.4); AST(SGOT) 38 U/L (15-37); Alanine Aminotransfer ALT/SGPT 25 U/L (16-61); Albumin, Serum 3.5 g/dL (3.2-5.0); Alkaline Phosphatase 113 U/L (45-117); Anion Gap 8 (5-15); BUN 33 mg/dL (7-18); BUN/Creat Ratio 7.5 RATIO (10-20); Calcium,Total 9.2 mg/dL (8.5-10.1); Chloride 98 mmol/L (98-107); Creatinine, Serum 4.39 mg/dL (0.70-1.30); EST Glomerular Filtration Rate 14 mL/min (>60); Est Glom Filt Rate - Afr Amer 17 mL/min (>60); Estimated Creatinine Clearance 11.74 ml/min; Globulin 5.6 g/dL (2.2-4.2); Glucose 99 mg/dL (74-106); Potassium 4.5 mmol/L (3.5-5.1); Protein, Total 9.1 g/dL (6.4-8.2); Sodium Level 138 mmol/L (136-145)
--- NOTE | 2024-04-05 15:10 | EKG12_ITS ---
Test Reason : FALL Blood Pressure : */* mmHG Vent. Rate : 89 BPM Atrial Rate : 89 BPM P-R Int : 152 ms QRS Dur : 106 ms QT Int : 410 ms P-R-T Axes : 50 -53 72 degrees QTcB Int : 498 ms Normal sinus rhythm Pulmonary disease pattern Incomplete right bundle branch block Left anterior fascicular block Minimal voltage criteria for LVH, may be normal variant ( R in aVL ) Nonspecific ST and T wave abnormality Abnormal ECG Confirmed by Luis Hsieh ([id number]), news video editor CORNELIA JOSEPH ([id number]) on 04/06/2024 8:27:28 AM Referred By: Confirmed By: Luis Hsieh
[2024-04-05] MEDS: Ondansetron 4 MG/2 ML Vial IV (15:21)
--- NOTE | 2024-04-05 15:26 | ED.RN ---
Notified Dr. Brothers about emesis x2, dark coffee ground looking. obtained order for Zofran.
--- NOTE | 2024-04-05 15:34 | CON.PCM_ITS ---
Assessment & Plan Assessment/Plan (1) Fractured femoral neck: QUALIFIERS: Encounter type: initial encounter Fracture type: c losed Laterality: left Qualified Code(s): S72.002A - Fracture of unspecified part of neck of left femur, initial encounter for closed fracture (2) Fracture of greater trochanter: QUALIFIERS: Encounter type: initial encounter Fracture type: c losed Fracture alignment: nondisplaced Laterality: left Qualified Code(s): S 72.115A - Nondisplaced fracture of greater trochanter of left femur, initial encounter for closed fracture PLAN: Plan Their discussion was had with the patient and his family member in regards to his left hip fracture discussed surgical and nonsurgical intervention including options of percutaneous screw fixation with modified weightbearing versus hemiarthroplasty. Patient does wish to proceed with hemiarthroplasty to expedite recovery and ambulation risk of his alternatives of surgery reviewed including risk of bleeding infection nerve artery tissue damage need for further surgery continued pain fracture. Plan for hemiarthroplasty when medically cleared tentatively 04/06/2024 4 PM. HPI Consult Data Date of Consult: 04/05/24 HPI Narrative HPI Narrative: ROBERT FRASER, is a 79 M who presents after ground-level fall onto his left side at his doctor's office earlier today patient has severe comorbidities is scheduled for dialysis tomorrow. Significant pain in his left hip. He also has some discomfort in his low back. [facility] Medical History Wears dentures Depression Thyroid disease Arthritis History of renal disease Anemia High cholesterol Back pain Dietary restriction On home oxygen therapy Gastric reflux CPAP (continuous positive airway pressure) dependence Former smoker COPD (chronic obstructive pulmonary disease) Shortness of breath on exertion Leg cramps History of edema History of echocardiogram History of stress test Hypertension History of CHF (congestive heart failure) Cardiology follow-up encounter Hx of fracture of ankle Aneurysm of right common iliac artery CAD (coronary artery disease) Hypothyroid Chronic renal failure, stage 4 (severe) Anemia COPD (chronic obstructive pulmonary disease) Acid reflux Hypertension Afib Gout Arthritis Home Medications ?Medication ?Instructions ?Recorded ?Last Taken ?Type amlodipine 10 mg tablet 10 mg PO DAILY htn 10/22/18 04/04/24 History atorvastatin 40 mg tablet 40 mg PO QHS cholesterol 10/22/18 04/04/24 History cholecalciferol (vitamin D3) 25 1,000 unit PO DAILY vitamin 10/22/18 04/04/24 History mcg (1,000 unit) capsule clopidogrel 75 mg tablet (Plavix) 75 mg PO DAILY blood thinner 10/22/18 04/04/24 History isosorbide mononitrate 60 mg 60 mg PO DAILY htn 10/22/18 04/04/24 History tablet,extended release 24 hr albuterol sulfate 2.5 mg/3 mL 2.5 mg inhalation Q6H PRN Wheezing 11/12/18 12/29/18 History (0.083 %) solution for nebulization albuterol sulfate 90 mcg/actuation 1 - 2 puff inhalation Q4H PRN copd 11/12/18 12/29/18 History aerosol inhaler fluticasone furoate 100 1 ea IH DAILY COPD 05/02/19 04/04/24 History mcg-vilanterol 25 mcg/dose inhalation powder fluticasone propionate 50 1 spray NASAL BID seasonal 05/02/19 Unknown History mcg/actuation nasal allergies spray,suspension carvedilol 12.5 mg tablet 12.5 mg PO BID 04/05/24 04/05/24 History diclofenac sodium 1 % topical gel 2 ea topical 4X/DAY 04/05/24 04/04/24 History levothyroxine 25 mcg tablet 25 mcg PO DAILY 04/05/24 04/04/24 History olopatadine 0.1 % eye drops 1 drp EACH EYE BID 04/05/24 04/04/24 History sertraline 50 mg tablet 50 mg PO DAILY 04/05/24 04/04/24 History tamsulosin 0.4 mg capsule 0.4 mg PO QHS 04/05/24 04/04/24 History Allergy/AdvReac Type Severity Reaction Status Date / Time aspirin (ASA) Allergy Other Verified 04/05/24 10:52 Family History Father Diabetes Kidney disease Brother Colon cancer Cancer Sister Breast cancer Surgical History History of cardiac catheterization H/O aortic valve replacement AICD (automatic cardioverter/defibrillator) present History of arteriovenostomy for renal dialysis hx of APLL Hx of CABG History of broken leg History of open heart surgery Social History Smoking Status: Former smoker alcohol intake: former substance use type: does not use caffeine: Yes what type of physical activity do you participate in: none frequency: does not exercise Physical Exam Const alert, oriented x3 and no apparent distress Constitutional Narrative: Frail soft-spoken General Appearance: cooperative Extremity Extremity Narrative: Left lower extremity flexed and externally rotated his compartments are soft he is able to plantarflex and dorsiflex his ankle he is intact and station light touch no open wounds however he still dressed Lab / Micro Data 04/05/24 10:54 04/05/24 14:27 Labs: Laboratory Results - last 24 hr 04/05/24 10:54: WBC 6.3, RBC 3.88 L, Hgb 11.6 L, Hct 37.5 L, MCV 96.6 H, MCH 29.9, MCHC 30.9 L, RDW Std Deviation 59.3 H, RDW Coeff of Erin 16.9 H, Plt Count 174, MPV 10.6, Immature Gran % (Auto) 1.400 H, Neut % (Auto) 63.6, Lymph % (Auto) 20.5, [place] % (Auto) 8.4, Eos % (Auto) 5.6 H, Baso % (Auto) 0.5, Absolute Neuts (auto) 4.0, Absolute Lymphs (auto) 1.29, Nucleated RBC % 0 04/05/24 14:27: Sodium 138, Potassium 4.5, Chloride 98, Carbon Dioxide 32.0, Anion Gap 8, BUN 33 H, Creatinine 4.39 H, Estim Creat Clear Calc 11.74, Est GFR (MDRD) Af Amer 17 L, Est GFR (MDRD) Non-Af 14 L, BUN/Creatinine Ratio 7.5 L, Glucose 99, Calcium 9.2, Total Bilirubin 0.80, AST 38 H, ALT 25, Alkaline Phosphatase 113, Total Protein 9.1 H, Albumin 3.5, Globulin 5.6 H, A lbumin/Globulin Ratio 0.6 L Imaging Radiology Impression Hip/Pelvis X-Ray 04/05/24 11:20 IMPRESSION: Mild degenerative arthrosis of the hip joints bilaterally. No demonstrated acute fracture. Electronically Signed: Justin Trevino MD at 11:41 EST , Lower Extremity CT 04/05/24 14:20 IMPRESSION: Acute nondisplaced fracture involving the left femoral neck.. There is also lucency suggesting nondisplaced fracture involving the greater trochanter. Electronically Signed: Jey Ross MD at 14:51 EST ,
--- NOTE | 2024-04-05 17:20 | ED.RN ---
Report given to Omega Fuller @ [facility].
[2024-04-05] MEDS: 0.9% Normal Saline (500mL Bag) 500 ML 999 ML IV ×2 (18:28→21:43)
--- NOTE | 2024-04-05 19:53 | ED.RN ---
informed Dr. Lin about pt BP and low grade fever. 500 cc bolus ordered.
[2024-04-05] MEDS: HYDROmorphone 0.5 MG/0.5 ML SYRINGE IV (20:34)
--- NOTE | 2024-04-05 21:11 | ED.RN ---
Prior to Physician's squad arriving at [facility], the patient's vital signs were stable and within normal limits. Physician's squad asked for pain medication for the patient to have while en route to the transfer hospital, 0.5mg of Diluadid was given. Physician's squad obtained a low blood pressure reading. MD notified, 250ml bolus of Normal Saline ordered and given. See vital signs and MAR documentation.
== END 2024-04-05 22:21 | disposition short-term general hospital (02) ==
PROVIDERS: Emergency Provider Emergency Medicine; PCP Internal Medicine; Visit Provider Emergency Medicine
DX: S72.115A Nondisplaced fracture of greater trochanter of left femur, initial encounter for closed fracture (principal); I13.2 Hypertensive heart and chronic kidney disease with heart failure and with stage 5 chronic kidney disease, or end stage renal disease; N18.6 End stage renal disease; S72.002A Fracture of unspecified part of neck of left femur, initial encounter for closed fracture; I50.9 Heart failure, unspecified; J44.9 Chronic obstructive pulmonary disease, unspecified; I48.91 Unspecified atrial fibrillation; I25.10 Atherosclerotic heart disease of native coronary artery without angina pectoris; Z87.891 Personal history of nicotine dependence; E78.00 Pure hypercholesterolemia, unspecified; Z79.02 Long term (current) use of antithrombotics/antiplatelets; Z99.2 Dependence on renal dialysis; W18.39XA Other fall on same level, initial encounter; Y92.531 Health care provider office as the place of occurrence of the external cause; Z79.899 Other long term (current) drug therapy; E03.9 Hypothyroidism, unspecified; Z79.890 Hormone replacement therapy; Z79.51 Long term (current) use of inhaled steroids; F32.A Depression, unspecified; Z95.2 Presence of prosthetic heart valve; Z95.1 Presence of aortocoronary bypass graft; Z95.810 Presence of automatic (implantable) cardiac defibrillator
CPT/HCPCS: 73502; 73700; 80053; 85025; 86850; 86900; 86901; 93005; 96361; 96374; 96375; 96376; 99285; A4216; J2405

== ENCOUNTER 2024-06-30 11:14 | Emergency (ER) | payer MEDICARE, MEDICAID, SELFPAY ==
[2024-06-30 11:15] VITALS: BP 138/68; PULSE 88; RESP 18; TEMP 36.4; O2SAT 92
[2024-06-30] MEDS: Morphine 2 MG/ML Syringe IM (13:23)
--- NOTE | 2024-06-30 14:00 | RAD_ITS ---
PROCEDURE: HIP, UNI W/ PELVIS 2-3 VIEWS 06/30/2024 REASON FOR EXAM: PAIN TECHNIQUE: AP pelvis and coned AP view of the left hip and frog-leg lateral. FINDINGS: Bones: There has been open reduction internal fixation of a proximal left hip fracture with dynamic compression screw and sideplate and screws. Hardware appears well positioned. There is some residual angulation at the fracture site. Calcium formation suggests healing fracture. Joints: No dislocation. Soft tissues: Aortoiliac wire mesh stent graft Other: RAD/HIP, UNI W/ Pelvis 2-3 Views IMPRESSION: No acute process detected. Status post ORIF of hip fracture with well-position ed, intact hardware Reading Location: [facility]
--- NOTE | 2024-06-30 14:42 | EDS_ITS ---
HPI History of Present Illness Chief Complaint: Lower Extremity Injury Narrative Narrative: Chief complaint and HPI: Left hip pain. 79-year-old male with past medical history of ESRD on HD Thursday/Thursday/Thursday, HFrEF, COPD, HTN, and other comorbidities presents for evaluation of left hip pain. Patient states that he had a mechanical fall in March in which she was evaluated by Sabrina Nelson. He states he had a left hip fracture in which he required surgery. Patient was discharged to rehab as well as home PT/OT which she is still receiving. Patient states since the surgery is continue to have left hip pain which causes him to be wheelchair-bound. He states he has not followed up with his surgeon since the procedure. He denies any worsening left hip pain than baseline but states that he thought he would have it finally evaluated today. He denies any fever, chills, shortness of breath, chest pain abdominal pain, nausea, vomiting, dysuria, diarrhea, constipation. Denies any new falls or trauma. Denies numbness, weakness, urinary retention, stool or urinary incontinence, saddle anesthesia. Review of systems: See HPI Medications: As listed on the chart Allergies: As listed on the chart PFSH: Per chart Vital signs: As listed on the chart. Reviewed. Physical exam: Gen: A&O x3, NAD Head: Normocephalic, atraumatic Eyes: No sclera icterus, conjunctiva clear ENT: Moist mucous membranes Neck: Trachea midline, No JVD CV: RRR, no murmurs, no peripheral edema Resp: Lungs CTA BL, no w/r/c GI: Abd soft, non-distended, non-tender, no r/r/g : Circumcised penis. No penile tenderness or discharge. No penile or testicular swelling. Normal lie and position of the testicles. No testicular tenderness, masses, or skin changes. No CVA tenderness. Musc: Full ROM of the left hip however has pain with movement, no deformity, no signs of trauma or cellulitis such as swelling/erythema/warmth, femoral/DP/PT pulses +2 bilaterally, compartments soft, sensation intact back nontender to palpation, Skin: Warm, dry Neuro: Alert, oriented, grossly intact, sensation intact Psych: Cooperative, appropriate mood and affect [facility] Medical History Wears dentures Depression Thyroid disease Arthritis History of renal disease Anemia High cholesterol Back pain Dietary restriction On home oxygen therapy Gastric reflux CPAP (continuous positive airway pressure) dependence Former smoker COPD (chronic obstructive pulmonary disease) Shortness of breath on exertion Leg cramps History of edema History of echocardiogram History of stress test Hypertension History of CHF (congestive heart failure) Cardiology follow-up encounter Hx of fracture of ankle Aneurysm of right common iliac artery CAD (coronary artery disease) Hypothyroid Chronic renal failure, stage 4 (severe) Anemia COPD (chronic obstructive pulmonary disease) Acid reflux Hypertension Afib Gout Arthritis Home Medications ?Medication ?Instructions ?Recorded ?Last Taken ?Type amlodipine 10 mg tablet 10 mg PO DAILY htn 10/22/18 04/04/24 History atorvastatin 40 mg tablet 40 mg PO QHS cholesterol 04/04/24 History cholecalciferol (vitamin D3) 25 1,000 unit PO DAILY vi tamin 10/22/18 04/04/24 History mcg (1,000 unit) capsule clopidogrel 75 mg tablet (Plavix) 75 mg PO DAILY blood thinner 10/22/18 04/04/24 History isosorbide mononitrate 60 mg 60 mg PO DAILY htn 04/04/24 History tablet,extended release 24 hr albuterol sulfate 2.5 mg/3 mL 2.5 mg inhalation Q6H MI N Wheezing 11/12/18 12/29/18 History (0.083 %) solution for nebulization albuterol sulfate 90 mcg/actuation 1 - 2 puff inhalati on Q4H PRN copd 11/12/18 12/29/18 History aerosol inhaler fluticasone furoate 100 1 ea IH DAILY COPD 05/02/19 04/04/24 History mcg-vilanterol 25 mcg/dose inhalation powder fluticasone propionate 50 1 spray NASAL BID seasonal 0 05/02/19 Unknown History mcg/actuation nasal allergies spray,suspension carvedilol 12.5 mg tablet 12.5 mg PO BID 04/05/2410/21 History diclofenac sodium 1 % topical gel 2 ea topical 4X/DAY 04/05/24 04/04/24 History levothyroxine 25 mcg tablet 25 mcg PO DAILY 04/05/24 0 04/04/24 History olopatadine 0.1 % eye drops 1 drp EACH EYE BID 5 04/04/24 History sertraline 50 mg tablet 50 mg PO DAILY 04/05/24 01/09/21 History tamsulosin 0.4 mg capsule 0.4 mg PO QHS 04/05/2404/04 History Allergy/AdvReac Type Severity Reaction Status Date / Time aspirin (ASA) Allergy Other Verified 06/30/24 11:15 Family History Father Diabetes Kidney disease Brother Colon cancer Cancer Sister Breast cancer Surgical History History of cardiac catheterization H/O aortic valve replacement AICD (automatic cardioverter/defibrillator) present History of arteriovenostomy for renal dialysis hx of APLL Hx of CABG History of broken leg History of open heart surgery Social History Smoking Status: Former smoker alcohol intake: former substance use type: does not use caffeine: Yes what type of physical activity do you participate in: none frequency: does not exercise EXAM Physical Exam Const Vital Signs: 06/30/24 11:15 Temperature 97.5 F L Temperature Source Temporal Pulse Rate 88 Respiratory Rate 18 Blood Pressure 138/68 H Blood Pressure Mean 91 Pulse Ox 92 Oxygen Delivery Method Room Air MDM MDM MDM Narrative Medical decision making narrative: 79-year-old male with past medical history of ESRD on HD Thursday/Thursday/Thursday, HFrEF, COPD, HTN, and other comorbidities presents for evaluation of left hip pain. Patient has had continued left hip pain since he developed a fracture and repair in March. Has not followed up with the surgeon. States since the repair he is then unable to ambulate secondary to left hip pain. He has been in rehab as well as has current PT/OT. He denies any worsening of his left hip pain than baseline. Denies any associated symptom. Has been using Tylenol for pain. Differential diagnosis includes but is not limited to osteoarthritis and suspect less likely fracture given there has been no trauma. No signs of septic arthritis. Patient given IM morphine as well as x-ray ordered. I do not think any laboratory workup is needed. He is in agreement. He was offered social work resources but declined. He states that he is able to function at home with daily tasks of living and would not be interested in rehab or a SNF. X-ray of the left hip and pelvis was reviewed by me, ED physician. No fracture. Patient's surgery is visualized. Per radiology hardware is well-positioned and intact. On reevaluation, patient pain has improved. He was updated of his results. At this point in time, no clear etiology for his left hip pain however given that this has been ongoing since his surgery I recommend he follow-up with his surgeon. He confirmed understand the plan. Patient was educated that if he cannot follow-up with his surgeon to follow-up with one of our orthopedics physicians here. Again he is comfortable going home. Patient will be discharged. Impression: 1. Left hip pain Radiography Diagnostic Testing: Clinical Impression(s) from Imaging Studies Hip/Pelvis X-Ray 06/30/24 14:00 IMPRESSION: No acute process detected. Status post ORIF of hip fracture with well- positioned, intact hardware [facility] Discharge Plan Triage Chief Complaint: Lower Extremity Injury ED Provider: Donald Sotelo Dx/Rx/DC Orders Prescriptions: No Action atorvastatin 40 mg tablet 40 mg PO QHS clopidogrel [Plavix] 75 mg tablet 75 mg PO DAILY isosorbide mononitrate 60 mg tablet extended release 24 hr 60 mg PO DAILY amlodipine 10 mg tablet 10 mg PO DAILY cholecalciferol (vitamin D3) 1,000 unit capsule 1,000 unit PO DAILY albuterol sulfate 2.5 MG/3 ML solution for nebulization 2.5 mg inhalation Q6H PRN (Reason: Wheezing) albuterol sulfate 1 INHALER inhaler 1 - 2 puff inhalation Q4H PRN (Reason: copd) fluticasone propionate 1 SPRAY spray,suspension 1 spray NASAL BID fluticasone furoate-vilanterol 1 EACH blister with device 1 ea IH DAILY tamsulosin 0.4 mg capsule 0.4 mg PO QHS diclofenac sodium 1 % gel 2 ea TOPICAL 4X/DAY olopatadine 0.1 % drops 1 drp EACH EYE BID Rx Instructions: separate doses by at least 6-8 hours levothyroxine 25 mcg tablet 25 mcg PO DAILY carvedilol 12.5 mg tablet 12.5 mg PO BID sertraline 50 mg tablet 50 mg PO DAILY Primary Care Provider: aJmia Comer Referrals: Jamia Comer MD [Primary Care Provider] - Print Language: Georgian
== END 2024-06-30 15:11 | disposition home or self-care (01) ==
PROVIDERS: Emergency Provider Surgery; PCP Internal Medicine; Visit Provider Surgery
DX: M25.552 Pain in left hip (principal); I13.2 Hypertensive heart and chronic kidney disease with heart failure and with stage 5 chronic kidney disease, or end stage renal disease; N18.6 End stage renal disease; I50.22 Chronic systolic (congestive) heart failure; J44.9 Chronic obstructive pulmonary disease, unspecified; I48.91 Unspecified atrial fibrillation; Z99.3 Dependence on wheelchair; I25.10 Atherosclerotic heart disease of native coronary artery without angina pectoris; Z87.891 Personal history of nicotine dependence; E78.00 Pure hypercholesterolemia, unspecified; Z99.2 Dependence on renal dialysis; Z79.899 Other long term (current) drug therapy; Z79.02 Long term (current) use of antithrombotics/antiplatelets; Z79.51 Long term (current) use of inhaled steroids; Z79.890 Hormone replacement therapy; E03.9 Hypothyroidism, unspecified; F32.A Depression, unspecified; Z95.2 Presence of prosthetic heart valve; Z95.1 Presence of aortocoronary bypass graft
CPT/HCPCS: 73502; 96372; 99282

== ENCOUNTER 2024-07-13 15:29 | Emergency (ER) | payer MEDICARE, MEDICAID, SELFPAY ==
[2024-07-13 15:31] VITALS: BP 91/71; PULSE 61; RESP 12; TEMP 36.4; BMI 19.3
[2024-07-13 15:49] VITALS: O2SAT 99
--- NOTE | 2024-07-13 15:52 | EX.ED.DYSGE1 ---
HPI History of Present Illness Chief Complaint: Hypotension Narrative Narrative: 79-year-old male past medical history of end-stage renal disease, gets dialysis every Thursday, Thursday, and Thursday, presents from dialysis with reported hypotension. It was reported his blood pressure was 80s. Additionally, he was allegedly hypotensive before during, and after dialysis. He had 1 episode of nausea and vomiting while at dialysis. He denies any recent fevers or chills, no cough or shortness of breath. He makes very little urine. He states that he is here because his blood pressure was low. He states he usually runs around 120 systolic. [facility] Medical History Wears dentures Depression Thyroid disease Arthritis History of renal disease Anemia High cholesterol Back pain Dietary restriction On home oxygen therapy Gastric reflux CPAP (continuous positive airway pressure) dependence Former smoker COPD (chronic obstructive pulmonary disease) Shortness of breath on exertion Leg cramps History of edema History of echocardiogram History of stress test Hypertension History of CHF (congestive heart failure) Cardiology follow-up encounter Hx of fracture of ankle Aneurysm of right common iliac artery CAD (coronary artery disease) Hypothyroid Chronic renal failure, stage 4 (severe) Anemia COPD (chronic obstructive pulmonary disease) Acid reflux Hypertension Afib Gout Arthritis Home Medications ?Medication ?Instructions ?Recorded ?Last Taken ?Type amlodipine 10 mg tablet 10 mg PO DAILY htn 10/22/18 04/04/24 History atorvastatin 40 mg tablet 40 mg PO QHS cholesterol 10/22/18 04/04/24 History cholecalciferol (vitamin D3) 25 1,000 unit PO DAILY vitamin 10/22/18 04/04/24 History mcg (1,000 unit) capsule clopidogrel 75 mg tablet (Plavix) 75 mg PO DAILY blood thinner 10/22/18 04/04/24 History isosorbide mononitrate 60 mg 60 mg PO DAILY htn 10/22/18 04/04/24 History tablet,extended release 24 hr albuterol sulfate 2.5 mg/3 mL 2.5 mg inhalation Q6H PRN Wheezing 11/12/18 12/29/18 History (0.083 %) solution for nebulization albuterol sulfate 90 mcg/actuation 1 - 2 puff inhalation Q4H PRN copd 11/12/18 12/29/18 History aerosol inhaler fluticasone furoate 100 1 ea IH DAILY COPD 05/02/19 04/04/24 History mcg-vilanterol 25 mcg/dose inhalation powder fluticasone propionate 50 1 spray NASAL BID seasonal 05/02/19 Unknown History mcg/actuation nasal allergies spray,suspension carvedilol 12.5 mg tablet 12.5 mg PO BID 04/05/24 04/05/24 History diclofenac sodium 1 % topical gel 2 ea topical 4X/DAY 04/05/24 04/04/24 History levothyroxine 25 mcg tablet 25 mcg PO DAILY 04/05/24 04/04/24 History olopatadine 0.1 % eye drops 1 drp EACH EYE BID 04/05/24 04/04/24 History sertraline 50 mg tablet 50 mg PO DAILY 04/05/24 04/04/24 History tamsulosin 0.4 mg capsule 0.4 mg PO QHS 04/05/24 04/04/24 History Allergy/AdvReac Type Severity Reaction Status Date / Time aspirin (ASA) Allergy Other Verified 07/13/24 15:35 Family History Father Diabetes Kidney disease Brother Colon cancer Cancer Sister Breast cancer Surgical History History of cardiac catheterization H/O aortic valve replacement AICD (automatic cardioverter/defibrillator) present History of arteriovenostomy for renal dialysis hx of APLL Hx of CABG History of broken leg History of open heart surgery Social History Smoking Status: Former smoker alcohol intake: former substance use type: does not use caffeine: Yes what type of physical activity do you participate in: none frequency: does not exercise ROS ROS ED ROS Narrative Review of systems positive for reported low blood pressure in the 80s. Patient denies any fevers or chills, no cough, no shortness of breath. No problems with urination. Yesterday he felt well. He had 1 episode of nausea and vomiting that has resolved at dialysis. Denies other symptoms. EXAM Physical Exam Narrative Exam Narrative: Afebrile. Vital signs noted. He does have a soft blood pressure of 96 systolic currently on the monitor. He is awake, alert, and oriented mentating well. Cardiovascular examination reveals a regular rate and rhythm. Lungs are clear to auscultation bilaterally. Abdomen is soft and nontender without guarding or rebound. Positive bowel sounds. Neurological examination shows him to be awake, alert, and is nonfocal/nonlateralizing. Const Vital Signs: 07/13/24 15:31 07/13/24 15:35 07/13/24 15:49 Temperature 97.5 F L Temperature Source Oral Pulse Rate 61 Respiratory Rate 12 Respiratory Effort Normal Non-Labored Respiratory Pattern Normal Blood Pressure 91/71 Blood Pressure Mean 77 Pulse Ox 99 Oxygen Delivery Method Room Air Room Air 07/13/24 16:30 07/13/24 17:00 07/13/24 17:34 Temperature 98.5 F Temperature Source Pulse Rate 87 78 59 L Respiratory Rate 16 16 12 Respiratory Effort Respiratory Pattern Blood Pressure 110/52 L 92/79 103/64 Blood Pressure Mean 71 83 77 Pulse Ox 92 95 98 Oxygen Delivery Method Room Air Room Air MDM MDM MDM Narrative Medical decision making narrative: Differential diagnosis includes but not limited to hypotension secondary to dehydration versus intravascular volume depletion. I have low suspicion for sepsis. Does not sound like he has a pneumonia because he is not having any symptoms. Initially he will be bolused 500 mL of normal saline and I will check his CBC, but although he has just recently completed dialysis I will check a BMP but I doubt any electrolyte abnormality. I reviewed his laboratory work and he has normal white count of 6.6 with hemoglobin stable at 12.1, hematocrit 37.2, platelet count 172. Chloride is slightly low at 95 but normal sodium 140 and potassium 4.1. Creatinine elevated at 2.40 with history of chronic kidney disease when compared to prior labs. Glucose elevated at 135 with normal anion gap of 11. After 500 mL bolus, his blood pressure has improved. He did have a reading as high as 125 systolic. At this point in time, I am hesitant to fluid overload him as he just had dialysis. Chest x-ray in 1 view interpreted by myself independently shows left lower lobe atelectasis. I reviewed the radiology report which confirms my independent interpretation and comments on possible infiltrate versus atelectasis. He does not have a white count, fever, or cough so I do not feel antibiotics are indicated clinically. At this point in time, I feel he can be discharged to follow-up with dialysis. Return instructions reviewed. Disposition is discharged home in stable condition. History & Record Review Discussion w/independent historian: Patient Lab Data Attestation: I reviewed the patient's lab results. Labs: Laboratory Results - last 24 hr 07/13/24 15:55 WBC 6.6 RBC 3.94 L Hgb 12.1 L Hct 37.2 L MCV 94.4 H MCH 30.7 MCHC 32.5 RDW Std Deviation 53.4 H RDW Coeff of Erin 15.2 H Plt Count 172 MPV 10.4 Immature Gran % (Auto) 0.500 Neut % (Auto) 72.9 H Lymph % (Auto) 12.9 L [place] % (Auto) 7.3 Eos % (Auto) 5.9 H Baso % (Auto) 0.5 Absolute Neuts (auto) 4.8 Absolute Lymphs (auto) 0.85 Nucleated RBC % 0 Sodium 140 Potassium 4.1 Chloride 95 L Carbon Dioxide 33.3 H Anion Gap 11 BUN 18 Creatinine 2.40 H Estim Creat Clear Calc 19.18 L Est GFR (MDRD) Non-Af 27 L BUN/Creatinine Ratio 7.4 L Glucose 135 H Calcium 9.4 Radiography Diagnostic Testing: Clinical Impression(s) from Imaging Studies Chest X-Ray 07/13/24 16:28 IMPRESSION: Left lower lobe atelectasis or pneumonia. Reading Location: [facility] Discharge Plan Triage Chief Complaint: Hypotension ED Provider: Eusebio Brothers Dx/Rx/DC Orders Clinical Impression: Transient hypotension, Intravascular volume depletion Instructions: ED Low Blood Pressure, All Causes Prescriptions: No Action atorvastatin 40 mg tablet 40 mg PO QHS clopidogrel [Plavix] 75 mg tablet 75 mg PO DAILY isosorbide mononitrate 60 mg tablet extended release 24 hr 60 mg PO DAILY amlodipine 10 mg tablet 10 mg PO DAILY cholecalciferol (vitamin D3) 1,000 unit capsule 1,000 unit PO DAILY albuterol sulfate 2.5 MG/3 ML solution for nebulization 2.5 mg inhalation Q6H PRN (Reason: Wheezing) albuterol sulfate 1 INHALER inhaler 1 - 2 puff inhalation Q4H PRN (Reason: copd) fluticasone propionate 1 SPRAY spray,suspension 1 spray NASAL BID fluticasone furoate-vilanterol 1 EACH blister with device 1 ea IH DAILY tamsulosin 0.4 mg capsule 0.4 mg PO QHS diclofenac sodium 1 % gel 2 ea TOPICAL 4X/DAY olopatadine 0.1 % drops 1 drp EACH EYE BID Rx Instructions: separate doses by at least 6-8 hours levothyroxine 25 mcg tablet 25 mcg PO DAILY carvedilol 12.5 mg tablet 12.5 mg PO BID sertraline 50 mg tablet 50 mg PO DAILY Primary Care Provider: Jamia Comer Referrals: Jamia Comer MD [Primary Care Provider] - 1-2 Days if not improving Activity Restrictions/Additional Instructions: Drink plenty of oral fluids. Get your dialysis performed on Thursday as scheduled. Print Language: Kittitian Disposition Disposition: Home, Self Care Discharge Date/Time: 07/13/24 17:54
[2024-07-13] MEDS: 0.9% Normal Saline (500mL Bag) 500 ML 999 ML IV (15:58)
[2024-07-13 16:02] LABS: Absolute Lymphocyte Count 0.85 X10^3/uL (0.83-4.51); Absolute Neutrophil Count 4.8 X10^3/uL (2.0-7.7); Basophil# 0.03 X10^3/uL; Basophil% 0.5 % (0-1); Eosinophil# 0.39 X10^3/uL; Eosinophils% 5.9 % (0-5); Hematocrit 37.2 % (40-54); Hemoglobin 12.1 g/dL (13.0-16.5); Lymphocyte # 0.85 X10^3/ul (0.83-4.51); Lymphocyte % 12.9 % (19-41); Mean Corp Hgb Conc 32.5 g/dL (32-36); Mean Corpuscular Hgb 30.7 pg (27.0-32.0); Mean Corpuscular Volume 94.4 fL (80-94); Mean Platelet Vol. 10.4 fl (6.2-12.0); Monocyte# 0.48 X10^3/uL; Monocyte% 7.3 % (0-10); NRBC Flagged by Analyzer 0 % (0-5); Neutrophil % 72.9 % (47-70); Platelet Count 172 K/mm3 (150-450); RBC Distribution Width CV 15.2 % (11.6-14.6); RBC Distribution Width SD 53.4 fl (35.1-43.9); Red Blood Count 3.94 M/mm3 (4.6-6.2); White Blood Count 6.6 K/mm3 (4.4-11.0)
[2024-07-13 16:21] LABS: Anion Gap 11 (5-15); BUN 18 mg/dL (4-19); BUN/Creat Ratio 7.4 RATIO (10-20); Calcium,Total 9.4 mg/dL (7.6-11.0); Carbon Dioxide 33.3 mmol/L (21.0-32.0); Chloride 95 mmol/L (98-108); EST Glomerular Filtration Rate 27 (>60); Estimated Creatinine Clearance 19.18 ml/min (50-250); Glucose 135 mg/dL (70-99); Potassium 4.1 mmol/L (3.3-5.1); Sodium Level 140 mmol/L (133-145)
--- NOTE | 2024-07-13 16:28 | RAD_ITS ---
PROCEDURE: CHEST 1 VIEW (PORTABLE) 07/13/2024 REASON FOR EXAM: HYPOTENSION TECHNIQUE: Frontal view of the chest. FINDINGS: Hardware: Left subclavian AICD. Status post coronary artery bypass grafting. Status post right axillary lymph node dissection. Heart: Heart size is mildly enlarged. Lungs: Alveolar opacity in the lower left lung consistent with left lower lobe atelectasis or pneumonia. Bones: The bones are unremarkable. Other: RAD/Chest 1 View (Portable) IMPRESSION: Left lower lobe atelectasis or pneumonia. Reading Location: [id number]
[2024-07-13 16:30] VITALS: BP 110/52; PULSE 87; RESP 16; O2SAT 92
[2024-07-13 17:00] VITALS: BP 92/79; PULSE 78; RESP 16; O2SAT 95
[2024-07-13 17:34] VITALS: BP 103/64; PULSE 59; RESP 12; TEMP 36.9; O2SAT 98
== END 2024-07-13 17:54 | disposition home or self-care (01) ==
PROVIDERS: Emergency Provider Emergency Medicine; PCP Internal Medicine; Visit Provider Emergency Medicine
DX: I95.9 Hypotension, unspecified (principal); I13.2 Hypertensive heart and chronic kidney disease with heart failure and with stage 5 chronic kidney disease, or end stage renal disease; N18.6 End stage renal disease; I50.9 Heart failure, unspecified; J44.9 Chronic obstructive pulmonary disease, unspecified; I48.91 Unspecified atrial fibrillation; Z99.2 Dependence on renal dialysis; E78.00 Pure hypercholesterolemia, unspecified; I25.10 Atherosclerotic heart disease of native coronary artery without angina pectoris; E86.9 Volume depletion, unspecified; Z87.891 Personal history of nicotine dependence; Z99.89 Dependence on other enabling machines and devices; Z79.899 Other long term (current) drug therapy; Z79.51 Long term (current) use of inhaled steroids; E03.9 Hypothyroidism, unspecified; Z79.890 Hormone replacement therapy; F32.A Depression, unspecified; Z95.2 Presence of prosthetic heart valve; Z95.810 Presence of automatic (implantable) cardiac defibrillator; Z95.1 Presence of aortocoronary bypass graft
CPT/HCPCS: 71045; 80048; 85025; 96360; 99285; A4216

== ENCOUNTER 2024-07-22 18:52 | Outpatient (CLI) | payer MEDICARE, MEDICAID, SELFPAY ==
[2024-07-22 19:19] LABS: Absolute Lymphocyte Count 1.35 X10^3/uL (0.83-4.51); Absolute Neutrophil Count 3.5 X10^3/uL (2.0-7.7); Basophil# 0.04 X10^3/uL; Basophil% 0.7 % (0-1); Eosinophil# 0.42 X10^3/uL; Eosinophils% 7.1 % (0-5); Hematocrit 31.4 % (40-54); Lymphocyte # 1.35 X10^3/ul (0.83-4.51); Lymphocyte % 22.9 % (19-41); Mean Corp Hgb Conc 31.8 g/dL (32-36); Mean Corpuscular Hgb 29.9 pg (27.0-32.0); Mean Corpuscular Volume 93.7 fL (80-94); Mean Platelet Vol. 9.6 fl (6.2-12.0); Monocyte# 0.62 X10^3/uL; Monocyte% 10.5 % (0-10); NRBC Flagged by Analyzer 0 % (0-5); Neutrophil # 3.45 X10^3/uL (2.7-7.7); Neutrophil % 58.5 % (47-70); Platelet Count 199 K/mm3 (150-450); RBC Distribution Width CV 15.3 % (11.6-14.6); RBC Distribution Width SD 53.3 fl (35.1-43.9); Red Blood Count 3.35 M/mm3 (4.6-6.2); White Blood Count 5.9 K/mm3 (4.4-11.0)
[2024-07-22 20:30] LABS: BUN 7 mg/dL (4-19)
[2024-07-22 20:51] LABS: BUN 34 mg/dL (4-19); Hepatitis B Surface Antigen Nonreactive (Nonreactive); Potassium 4.5 mmol/L (3.3-5.1)
== END 2024-07-22 23:59 | disposition home or self-care (01) ==
PROVIDERS: PCP Internal Medicine; Visit Provider Internal Medicine Nephrology
DX: N18.6 End stage renal disease (principal); Z99.2 Dependence on renal dialysis
CPT/HCPCS: 84132; 84520; 85025; 87340

== ENCOUNTER 2025-03-17 14:38 | Emergency (ER) | payer MEDICARE, MEDICAID, SELFPAY ==
[2025-03-17] VITALS (7 sets, daily range): BP systolic 151–164; BP diastolic 54–100; PULSE 60–94; RESP 13–18; TEMP 36.6–36.8; O2SAT 97–100; BMI 19.9
--- NOTE | 2025-03-17 15:15 | EKG12_ITS ---
Test Reason : PALPATATIONS Blood Pressure : */* mmHG Vent. Rate : 78 BPM Atrial Rate : 78 BPM P-R Int : 150 ms QRS Dur : 114 ms QT Int : 466 ms P-R-T Axes : 30 -44 83 degrees QTcB Int : 531 ms Sinus rhythm with Premature atrial complexes with Aberrant conduction Left axis deviation Moderate voltage criteria for LVH, may be normal variant ( R in aVL , [place] product ) Inferior infarct , age undetermined Prolonged QT Abnormal ECG Reconfirmed by Lashanda Goldman ([id number]), book editor CORNELIA JOSEPH ([id number]) on 03/20/2025 10:20:34 AM Also confirmed by Lashanda Goldman ([id number]), book editor CORNELIA JOSEPH ([id number]) on 03/21/2025 8:17:04 AM Referred By: COTY/MARLEN Confirmed By: Lashanda Goldman
--- NOTE | 2025-03-17 15:15 | EX.ED.DYSGE1 ---
HPI History of Present Illness Chief Complaint: Palpitations Informant: patient and spouse/S.O. Narrative Narrative: Patient is a 80-year-old male with a history of CABG presenting with intermittent discomfort in the left shoulder and neck for the past 1-2 weeks. Today, during dialysis, an irregular heartbeat was detected, prompting ER visit. Did not have symptoms when this was detected per pt. - Reports waving sensations in the left shoulder and neck, occurring daily for the past week. Episodes are brief, lasting a minute or two, and then recurring; not continuous for extended periods. - Denies chest discomfort during these episodes. - Occasionally experiences dyspnea during episodes, but denies feeling like he will pass out. - Denies experiencing waving sensations during dialysis; felt okay otherwise. - Has a cough with phlegm production for an unspecified duration; denies recent fevers. - Underwent CABG 10 years ago in [place]. - Currently under the care of a rail technician in [place]. [facility] Medical History Wears dentures Depression Thyroid disease Arthritis History of renal disease Anemia High cholesterol Back pain Dietary restriction On home oxygen therapy Gastric reflux CPAP (continuous positive airway pressure) dependence Former smoker COPD (chronic obstructive pulmonary disease) Shortness of breath on exertion Leg cramps History of edema History of echocardiogram History of stress test Hypertension History of CHF (congestive heart failure) Cardiology follow-up encounter Hx of fracture of ankle Aneurysm of right common iliac artery CAD (coronary artery disease) Hypothyroid Chronic renal failure, stage 4 (severe) Anemia COPD (chronic obstructive pulmonary disease) Acid reflux Hypertension Afib Gout Arthritis Home Medications ?Medication ?Instructions ?Recorded ?Last Taken ?Type amlodipine 10 mg tablet 10 mg PO DAILY htn 10/22/18 04/04/24 History atorvastatin 40 mg tablet 40 mg PO QHS cholesterol 10/22/18 04/04/24 History cholecalciferol (vitamin D3) 25 1,000 unit PO DAILY vitamin 10/22/18 04/04/24 History mcg (1,000 unit) capsule clopidogrel 75 mg tablet (Plavix) 75 mg PO DAILY blood thinner 10/22/18 04/04/24 History isosorbide mononitrate 60 mg 60 mg PO DAILY htn 10/22/18 04/04/24 History tablet,extended release 24 hr albuterol sulfate 2.5 mg/3 mL 2.5 mg inhalation Q6H PRN Wheezing 11/12/18 12/29/18 History (0.083 %) solution for nebulization albuterol sulfate 90 mcg/actuation 1 - 2 puff inhalation Q4H PRN copd 11/12/18 12/29/18 History aerosol inhaler fluticasone furoate 100 1 ea IH DAILY COPD 05/02/19 04/04/24 History mcg-vilanterol 25 mcg/dose inhalation powder fluticasone propionate 50 1 spray NASAL BID seasonal 05/02/19 Unknown History mcg/actuation nasal allergies spray,suspension carvedilol 12.5 mg tablet 12.5 mg PO BID 04/05/24 04/05/24 History diclofenac sodium 1 % topical gel 2 ea topical 4X/DAY 04/05/24 04/04/24 History levothyroxine 25 mcg tablet 25 mcg PO DAILY 04/05/24 04/04/24 History olopatadine 0.1 % eye drops 1 drp EACH EYE BID 04/05/24 04/04/24 History sertraline 50 mg tablet 50 mg PO DAILY 04/05/24 04/04/24 History tamsulosin 0.4 mg capsule 0.4 mg PO QHS 04/05/24 04/04/24 History Allergy/AdvReac Type Severity Reaction Status Date / Time aspirin (ASA) Allergy Other Verified 03/17/25 14:39 Family History Father Diabetes Kidney disease Brother Colon cancer Cancer Sister Breast cancer Surgical History History of cardiac catheterization H/O aortic valve replacement AICD (automatic cardioverter/defibrillator) present History of arteriovenostomy for renal dialysis hx of APLL Hx of CABG History of broken leg History of open heart surgery Social History Smoking Status: Former smoker alcohol intake: former substance use type: does not use caffeine: Yes what type of physical activity do you participate in: none frequency: does not exercise ROS ROS ED Constitutional Constitutional ED: Denies chills or fever(s) Eyes Eyes: Denies change in vision or diplopia ENT ENT ED: Denies rhinorrhea or sore throat Cardiovascular Cardiovascular: Reports other Details: No chest discomfort per se but intermittent discomfort in left shoulder into the left neck see HPI ; Denies palpitations or racing heartbeat Respiratory/Chest Respiratory/Chest: Reports cough and sputum; Denies dyspnea Gastrointestinal Gastrointestinal: Denies abdominal pain, diarrhea, nausea or vomiting Musculoskeletal Musculoskeletal: Denies back pain or neck pain Integumentary Denies abscess or rash Neurologic Neurologic: Denies headache(s), paresthesias or weakness Psychiatric Psychiatric: Denies anxiety or suicidal thoughts EXAM Physical Exam Const Vital Signs: 03/17/25 14:38 03/17/25 15:09 03/17/25 15:38 Temperature 98.3 F Temperature Source Oral Pulse Rate 94 64 Respiratory Rate 18 16 Blood Pressure 162/100 H 164/69 H Blood Pressure Mean 120 100 Pulse Ox 97 99 98 Oxygen Delivery Method Room Air Room Air 03/17/25 16:00 03/17/25 17:00 03/17/25 18:00 Temperature Temperature Source Pulse Rate 72 66 64 Respiratory Rate 13 18 18 Blood Pressure 151/68 H 164/69 H 160/54 H Blood Pressure Mean 95 100 89 Pulse Ox 98 97 100 Oxygen Delivery Method Positive well nourished and well developed General Appearance ED: well developed and NAD HEENT Reports moist mucous membranes normocephalic and atraumatic Eyes PERRL and EOMs intact bilaterally Neck full ROM and supple Resp normal respiratory effort and clear to auscultation bilaterally Cardio regular rate, regular rhythm and no murmurs Cardio Narrative: Good thrill right upper arm AV fistula, intact 2+/4 radial pulse distally. Otherwise pulses intact. GI non-tender and non-distended Auscultation: normoactive bowel sounds Palpation: soft Back/Spine no CVA tenderness General Back: other FROM Extremity normal to inspection General Extremety ED: Negative for edema, pulses abnormal or tenderness General Extremity: Negative for edema or pulses abnormal Neuro oriented x3, CN's II-XII intact bilaterally and no sensory deficits noted Sensorium / Orientation: awake and alert Motor Exam: strength 5/5 throughout Psych mental status grossly normal Skin no rashes or lesions noted and no wounds MDM MDM MDM Narrative Medical decision making narrative: Assessment: The patient is a 80-year-old male with PMH of coronary artery disease status post CABG and chronic kidney disease stage 5 on hemodialysis presenting for one-week history of intermittent ?waves? in the left shoulder/neck that dialysis staff described as an irregular heartbeat. EKG demonstrates sinus rhythm with multifocal PVCs; no atrial fibrillation or other sustained dysrhythmia was seen. Initial troponin 80 and repeat 87 are minimally elevated and flat, consistent with baseline renal disease rather than acute coronary syndrome. Chest X-ray shows chronic changes with a small left pleural effusion likely related to renal failure and no acute consolidation. Blood pressure remained stable and the patient was never tachycardic. Clinical picture is most consistent with benign ventricular premature depolarizations without evidence of acute ischemia or electrolyte-driven arrhythmia. Plan: - Provided reassurance that PVCs are benign; no medication changes indicated today - Observed in ED until second troponin resulted; remained asymptomatic in stable sinus rhythm - Discussed need for routine follow-up with established rail technician in [place] - Discharged home in stable condition Diagnostics: - EKG interpreted: sinus rhythm with multifocal PVCs and no acute injury; no ST-segment changes. Independently interpreted by , Mikhail Kirby. - Labs: initial troponin 80 ng/L; repeat troponin 87 ng/L, flat trend. - Chest X-ray: chronic parenchymal abnormalities and small left pleural effusion; no focal consolidation. Reevaluations: - Re-evaluated after second troponin: patient asymptomatic, sinus rhythm, vitals stable. Episodes have decreased throughout his stay. Portions of this note were generated using voice recognition software (Netli Dictation). I have reviewed the contents and every effort has been made to ensure accuracy; however, inadvertent errors in grammar, spelling, punctuation, or word choice may occur, that were not noted before signing the document and should not alter the intended clinical meaning. Lab Data Attestation: I reviewed the patient's lab results. Labs: Laboratory Results - last 24 hr 03/17/25 03/17/25 03/17/25 14:56 15:42 16:53 WBC 8.1 RBC 3.94 L Hgb 12.2 L Hct 37.0 L MCV 93.9 MCH 31.0 MCHC 33.0 RDW Std Deviation 58.4 H RDW Coeff of Erin 17.1 H Plt Count 254 MPV 10.1 Immature Gran % (Auto) 0.400 Neut % (Auto) 76.6 H Lymph % (Auto) 12.3 L [place] % (Auto) 6.8 Eos % (Auto) 3.3 Baso % (Auto) 0.6 Absolute Neuts (auto) 6.2 Absolute Lymphs (auto) 1.00 Nucleated RBC % 0 Sodium Cancelled 139 Potassium Cancelled 3.6 Chloride Cancelled 94 L Carbon Dioxide Cancelled 33.1 H Anion Gap Cancelled 11 BUN Cancelled 16 Creatinine Cancelled 2.73 H Estim Creat Clear Calc 17.11 L Est GFR (MDRD) Non-Af Cancelled 23 L BUN/Creatinine Ratio Cancelled 5.8 L Glucose Cancelled 83 Calcium Cancelled 9.4 Troponin T High Sens 80 H* Troponin T Hi Sens 2 Hr 87 H* Radiography Diagnostic Testing: Clinical Impression(s) from Imaging Studies Chest X-Ray 03/17/25 15:16 IMPRESSION: 1. Left lower lung strand-like opacities, likely atelectasis/scarring with infection not excluded. 2. Small left pleural effusion versus pleural thickening. Reading Location: [facility] Rhythm Strip Rhythm Strip: Sinus Rhythm Rate: 75 Ectopy: PVC(s) (Multifocal) EKG Initial EKG: Attestation: I personally reviewed and interpreted this EKG as follows: Interpretation: Sinus Rhythm and No Acute Injury Pattern Comments: Multifocal PVCs Discharge Plan Triage Chief Complaint: Palpitations ED Provider: Mikhail Kirby Dx/Rx/DC Orders Clinical Impression: Multifocal PVCs, Pleural effusion, left, ESRD on dialysis Instructions: Premature Ventricular Contract Tx Prescriptions: No Action atorvastatin 40 mg tablet 40 mg PO QHS clopidogrel [Plavix] 75 mg tablet 75 mg PO DAILY isosorbide mononitrate 60 mg tablet extended release 24 hr 60 mg PO DAILY amlodipine 10 mg tablet 10 mg PO DAILY cholecalciferol (vitamin D3) 1,000 unit capsule 1,000 unit PO DAILY albuterol sulfate 2.5 MG/3 ML solution for nebulization 2.5 mg inhalation Q6H PRN (Reason: Wheezing) albuterol sulfate 1 INHALER inhaler 1 - 2 puff inhalation Q4H PRN (Reason: copd) fluticasone propionate 1 SPRAY spray,suspension 1 spray NASAL BID fluticasone furoate-vilanterol 1 EACH blister with device 1 ea IH DAILY tamsulosin 0.4 mg capsule 0.4 mg PO QHS diclofenac sodium 1 % gel 2 ea TOPICAL 4X/DAY olopatadine 0.1 % drops 1 drp EACH EYE BID Rx Instructions: separate doses by at least 6-8 hours levothyroxine 25 mcg tablet 25 mcg PO DAILY carvedilol 12.5 mg tablet 12.5 mg PO BID sertraline 50 mg tablet 50 mg PO DAILY Primary Care Provider: Jamia Comer Referrals: Jamia Comer MD [Primary Care Provider, Internal Medicine] Activity Restrictions/Additional Instructions: Your telemetry and EKG show multifocal PVCs, no dysrhythmias. Your testing shows no sign of a heart attack or ACS. Follow-up with your rail technician. Print Language: Cuban Disposition Disposition: Home, Self Care
--- NOTE | 2025-03-17 15:16 | RAD_ITS ---
PROCEDURE: CHEST PA AND LATERAL 03/17/2025 REASON FOR EXAM: CHEST PAIN; COUGH TECHNIQUE: Procedure Code: RADCXR Modality: DX Procedure: CHEST PA AND LATERAL COMPARISON: 07/13/2024 FINDINGS: LINES: Left-sided pacemaker device with right atrial and right ventricular leads. LUNGS AND PLEURA: Small strand-like opacities in the left lower lung. Mild blunting of the left costophrenic angle. No pneumothorax. HEART AND MEDIASTINUM: The cardiac silhouette is mildly enlarged. The mediastinal contour is normal. Evidence of prior CABG with sternal wires in place. AORTA: Calcified thoracic aorta with stent graft in the abdominal aorta. BONES: No acute osseous abnormality. RAD/Chest PA and Lateral IMPRESSION: 1. Left lower lung strand-like opacities, likely atelectasis/scarring with inf ection not excluded. 2. Small left pleural effusion versus pleural thickening. Reading Location: [id number]
[2025-03-17 15:27] LABS: Hematocrit 37.0 % (40-54); Hemoglobin 12.2 g/dL (13.0-16.5); Immature Granulocytes Count 0.030 X10^3/uL (0.0-0.0); Mean Corp Hgb Conc 33.0 g/dL (32-36); Mean Corpuscular Volume 93.9 fL (80-94); Mean Platelet Vol. 10.1 fl (6.2-12.0); NRBC Flagged by Analyzer 0 % (0-5); Platelet Count 254 K/mm3 (150-450); RBC Distribution Width CV 17.1 % (11.6-14.6); RBC Distribution Width SD 58.4 fl (35.1-43.9); Red Blood Count 3.94 M/mm3 (4.6-6.2); White Blood Count 8.1 K/mm3 (4.4-11.0)
[2025-03-17 15:51] LABS: Troponin T High Sensitivity 80 ng/L (<=22)
[2025-03-17 16:19] LABS: Anion Gap 11 (5-15); BUN 16 mg/dL (4-19); BUN/Creat Ratio 5.8 RATIO (10-20); Calcium,Total 9.4 mg/dL (7.6-11.0); Carbon Dioxide 33.1 mmol/L (21.0-32.0); Chloride 94 mmol/L (98-108); Estimated Creatinine Clearance 17.11 ml/min (50-250); Glucose 83 mg/dL (70-99); Potassium 3.6 mmol/L (3.3-5.1)
[2025-03-17 17:26] LABS: Troponin T High Sens 2 HR 87 ng/L (<=22)
== END 2025-03-17 18:39 | disposition home or self-care (01) ==
PROVIDERS: Emergency Provider Emergency Medicine; PCP Internal Medicine; Visit Provider Emergency Medicine
DX: I49.3 Ventricular premature depolarization (principal); I13.2 Hypertensive heart and chronic kidney disease with heart failure and with stage 5 chronic kidney disease, or end stage renal disease; N18.6 End stage renal disease; I50.9 Heart failure, unspecified; J44.9 Chronic obstructive pulmonary disease, unspecified; I48.91 Unspecified atrial fibrillation; J90 Pleural effusion, not elsewhere classified; Z99.2 Dependence on renal dialysis; R00.2 Palpitations; E78.00 Pure hypercholesterolemia, unspecified; I25.10 Atherosclerotic heart disease of native coronary artery without angina pectoris; Z95.1 Presence of aortocoronary bypass graft; Z99.81 Dependence on supplemental oxygen; Z79.899 Other long term (current) drug therapy; Z79.02 Long term (current) use of antithrombotics/antiplatelets; Z79.51 Long term (current) use of inhaled steroids; E03.9 Hypothyroidism, unspecified; Z79.890 Hormone replacement therapy; F32.A Depression, unspecified; Z95.2 Presence of prosthetic heart valve; Z95.810 Presence of automatic (implantable) cardiac defibrillator; Z87.891 Personal history of nicotine dependence
CPT/HCPCS: 71046; 80048; 84484; 85025; 93005; 99285; A4216